=== PATIENT | female | born 1980 ===

== ENCOUNTER 2017-08-30 11:20 | Inpatient (IN) | payer OTHER ==
[2017-08-30] MEDS ORDERED: Sodium Chloride 0.9% 1,000 ML IV STA ×3 (12:31→15:42)
[2017-08-30] MEDS ORDERED: Iohexol 240 (50 ml) PO ONE (12:33)
--- NOTE | 2017-08-30 12:34 | ED PDOC ---
HPI: Abdomen Time Seen by Provider: 08/30/17 11:52 Chief Complaint (Nursing): GI Problem Chief Complaint (Provider): Abd pain History Per: Patient History/Exam Limitations: no limitations Onset/Duration Of Symptoms: Days (Tuesday) Additional Complaint(s): Pt. with abd pain R side lower. 5 days. No nausea. Has diarrhea, nonbloody. No weakness, headaches, dizziness, weakness, back pain. No chest pain. No dysuria. Past Medical History Reviewed: Nursing Documentation, Vital Signs Vital Signs: Last Vital Signs Temp 98.8 F 08/30/17 15:08 Pulse 96 H 08/30/17 15:08 Resp 18 08/30/17 11:24 BP 135/76 08/30/17 11:24 Pulse Ox 95 08/30/17 13:15 - Medical History PMH: No Chronic Diseases - Surgical History Surgical History: No Surg Hx - Family History Family History: States: Unknown Family Hx - Social History Current smoker - smoking cessation education provided: No Alcohol: None Drugs: Denies - Home Medications Home Medications: Ambulatory Orders Medication Instructions Recorded Doxycycline [Adoxa] 100 mg PO BID #20 tab 05/13/14 Ibuprofen [Motrin] 600 mg PO Q8 PRN #20 tab 05/13/14 - Allergies Allergies/Adverse Reactions: Allergies Allergy/AdvReac Type Severity Reaction Status Date / Time No Known Allergies Allergy Verified 05/13/14 09:58 Review of Systems ROS Statement: Except As Marked, All Systems Reviewed And Found Negative Gastrointestinal: Positive for: Abdominal Pain, Diarrhea Physical Exam - Reviewed Nursing Documentation Reviewed: Yes Vital Signs Reviewed: Yes - Physical Exam Appears: Positive for: Uncomfortable Head Exam: Positive for: ATRAUMATIC, NORMAL INSPECTION, NORMOCEPHALIC Skin: Positive for: Normal Color, Warm, DRY Eye Exam: Positive for: EOMI, Normal appearance, PERRL ENT: Positive for: Normal ENT Inspection Neck: Positive for: Normal, Painless ROM Cardiovascular/Chest: Positive for: Regular Rate, Rhythm Respiratory: Positive for: CNT, Normal Breath Sounds Gastrointestinal/Abdominal: Positive for: Bowel Sounds, Soft, Tenderness ( diffuse), Distended (mild) Back: Positive for: Normal Inspection. Negative for: L CVA Tenderness, R CVA Tenderness Extremity: Positive for: Normal ROM. Negative for: Tenderness, Pedal Edema Neurologic/Psych: Positive for: Alert, Oriented - Laboratory Results Result Diagrams: 08/30/17 13:00 08/30/17 13:00 Interpretation Of Abn Labs: 13.2 wbc, 29 bun, lactate 2.2 - ECG ECG: Positive for: Interpreted By Me, Viewed By Me ECG Rhythm: Positive for: Sinus Tachycardia O2 Sat by Pulse Oximetry: 95 Pulse Ox Interpretation: Normal - Progress ED Course And Treament: IMPRESSION: Colonic wall thickening on the right with adjacent inflammatory changes and small free fluid. The appendix is not identified. Extensive inflammatory changes which may be related to phlegmonous change/ developing abscess evident within right lower quadrant. Several foci of gas are noted in this region which are not clearly intraluminal. Appearance suspicious for loculated extra luminal gas, however free air cannot be entirely excluded. Correlate clinically for possibility of acute appendicitis/ruptured appendix. 21.3 x 26.4 cm cystic mass within the right mid pelvis of unclear etiology, possibly ovarian in origin. Hepatomegaly. Hepatic steatosis. Patchy right lower lobe atelectasis/infiltrates. 1553: Stable. Pain controlled. Spoke with Dr. Kay. Will consult. Agrees with current management. Spoke with Dr. Oliveira who will admit ICU. Spoke with dr. Foster who will admit. AAOx3. - Critical Care Total Time (In Min): 30 Documented Critical Care: Time excludes all time spent performint seperately billable procedures Disposition - Clinical Impression Clinical Impression: Ruptured appendicitis, Ovarian mass, Severe sepsis - Patient ED Disposition Is Patient to be Admitted: Yes - Disposition Disposition Time: 15:30 Condition: SERIOUS - Pt Status Changed To: Hospital Disposition Of: Inpatient - Admit Certification Admit to Inpatient:: After my assessment, the patient will require hospitalization for at least two midnights. This is because of the severity of symptoms shown, intensity of services needed, and/or the medical risk in this patient being treated as an outpatient. - POA Present On Arrival: None
[2017-08-30] MEDS ORDERED: Iohexol 240 (50 ml) ONE (13:06)
[2017-08-30 13:07] LABS: VENOUS BLOOD GAS BASE EXCESS 3.2 mmol/L (0.0-2.0); VENOUS BLOOD GAS PCO2 34 mmHg (40-60); VENOUS BLOOD GAS PO2 43 mm/Hg (30-55)
[2017-08-30 13:11] LABS: BASO % 0.1 % (0.0-2.0); EOS # 0.1 K/uL (0.0-0.7); EOS % 0.6 % (0.0-4.0); HEMOGLOBIN 7.5 g/dL (12.0-16.0); LYMPH # 1.1 K/uL (1.0-4.3); LYMPH % 8.5 % (20.0-40.0); MEAN CELL VOLUME 57.2 fl (81.0-99.0); MEAN CORPUSCULAR HEMOGLOBIN 17.8 pg (27.0-31.0); MEAN CORPUSCULAR HGB CONC 31.2 g/dL (33.0-37.0); MEAN PLATELET VOLUME 8.4 fl (7.2-11.7); MONO # 0.8 K/uL (0.0-0.8); MONO % 6.3 % (0.0-10.0); NEUT # 11.2 K/uL (1.8-7.0); NEUT % 84.5 % (50.0-75.0); NRBC % 0.1 % (0.0-0.0); PLATELET COUNT 255 K/uL (130-400); RBC 4.21 Mil/uL (3.80-5.20); RED CELL DISTRIBUTION WIDTH 19.1 % (11.5-14.5); WHITE BLOOD COUNT 13.2 K/uL (4.8-10.8)
[2017-08-30 13:26] LABS: INR 1.2 (0.9-1.2); PARTIAL THROMBOPLASTIN TIME 30.9 Seconds (25.6-37.1); PROTHROMBIN TIME 13.8 Seconds (9.8-13.1)
[2017-08-30 13:27] LABS: ALBUMIN 3.9 g/dL (3.5-5.0); ALT/SGPT 44 U/L (9-52); AST/SGOT 26 U/L (14-36); BLOOD UREA NITROGEN 29 mg/dl (7-17); CALCIUM 8.2 mg/dL (8.4-10.2); GFR AFRICAN-AMERICAN > 60; GFR NON-AFRICAN AMERICAN > 60; LIPASE 34 U/L (23-300); MAGNESIUM 1.7 MG/DL (1.6-2.3)
[2017-08-30 14:13] LABS: ANISOCYTOSIS SLIGHT; LYMPHOCYTE 7 % (20-50); MICROCYTOSIS MARKED; MONOCYTE 5 % (0-10); NEUTROPHIL 88 % (42-75); PLATELET ESTIMATE NORMAL (NORMAL); TOTAL CELLS COUNTED 100
[2017-08-30 14:14] LABS: HYPOCHROMIC MODERATE; OVALOCYTES SLIGHT; SCHISTOCYTES SLIGHT; TARGET CELLS SLIGHT; TEARDROP CELLS SLIGHT
[2017-08-30] MEDS ORDERED: Iohexol 300 100 ML IJ ONE (14:51)
[2017-08-30] MEDS ORDERED: Piperacillin/Tazobact 3.375 GM in Sodium Chloride 0.9% 100 ML IV STA (15:48)
--- NOTE | 2017-08-30 15:49 | CT ---
PROCEDURE: CT Abdomen and Pelvis with oral and IV contrast. HISTORY: abd pain COMPARISON: CT abdomen and pelvis without contrast performed 04/09/14 TECHNIQUE: Contiguous axial images of the abdomen and pelvis. Oral and IV contrast was administered. Coronal and Sagittal reformats generated and reviewed. Contrast dose: 95 cc Omnipaque IV. Radiation dose: Total exam DLP = 1134.30 MGy-cm. This CT exam was performed using one or more of the following dose reduction techniques: Automated exposure control, adjustment of the mA and/or kV according to patient size, and/or use of iterative reconstruction technique. FINDINGS: LOWER THORAX: Patchy right lower lobe atelectasis/infiltrates. No visible pleural effusion or pneumothorax. LIVER: Hypoattenuation of the liver compatible with hepatic steatosis. Hepatomegaly. GALLBLADDER AND BILE DUCTS: Unremarkable. PANCREAS: Unremarkable. SPLEEN: Unremarkable. ADRENALS: Unremarkable. KIDNEYS AND URETERS: The kidneys enhance symmetrically. No hydronephrosis or obstructing renal calculus. BLADDER: Underdistended urinary bladder appears unremarkable. REPRODUCTIVE: Uterus is present. BOWEL: The stomach is nondistended. No evidence of bowel obstruction. Colonic wall thickening on the right with adjacent inflammatory changes and small free fluid. The appendix is not identified. Extensive inflammatory changes which may be related to phlegmonous change/ developing abscess evident within right lower quadrant. Several foci of gas are noted in this region which are not clearly intraluminal. Appearance suspicious for loculated extra luminal gas, however free air cannot be entirely excluded. Correlate clinically for possibility of acute appendicitis/ruptured appendix. LYMPH NODES: No bulky lymphadenopathy identified. VASCULATURE: No aortic aneurysm. BONES: No acute osseous abnormality is detected. OTHER FINDINGS: 21.3 x 26.4 cm cystic mass within the right mid pelvis of unclear etiology, possibly ovarian in origin. Small fat containing umbilical hernia. IMPRESSION: Colonic wall thickening on the right with adjacent inflammatory changes and small free fluid. The appendix is not identified. Extensive inflammatory changes which may be related to phlegmonous change/ developing abscess evident within right lower quadrant. Several foci of gas are noted in this region which are not clearly intraluminal. Appearance suspicious for loculated extra luminal gas, however free air cannot be entirely excluded. Correlate clinically for possibility of acute appendicitis/ruptured appendix. 21.3 x 26.4 cm cystic mass within the right mid pelvis of unclear etiology, possibly ovarian in origin. Hepatomegaly. Hepatic steatosis. Patchy right lower lobe atelectasis/infiltrates. Findings discussed with Dr. Ramon on 08/30/17 at 3:39 p.m.
--- NOTE | 2017-08-30 16:04 | CP.CCUPN ---
CCU Subjective - Physician Review Events Since Last Encounter (Free Text): 08/30/17 17:54 37 Years old Female with No Chronic Diseases who presented to the Emergency department with complaint of sharp, consistent Right sided abdominal pain x 5 days. Also admits N/vomiting, diarrhea, No dysuria, No fevers/chills, Body ache, No chest pain, SOB, cough, sputum productions. CT abdomen and pelvis without contrast performed showed RLL extensive inflammatory changes In the Emergency department, she was tachycardic , Borderline Hypotensive Fever to 101F and with possible RLL atelectasis/infiltrates. labs revealed Leucocytosis pf 13.2, mild azotemia with BUN/Cr 29/1.0, elevated lactate of 2.2 Patient started on IV antibiotics, IV Fluids Afebrile, NSR on the monitor Evaluated by surgery Patient admitted to ICU for further management of Severe sepsis 08/30/17 18:09 08/30/2017: CT Abdomen and Pelvis with oral and IV contrast. IMPRESSION: Colonic wall thickening on the right with adjacent inflammatory changes and small free fluid. The appendix is not identified. Extensive inflammatory changes which may be related to phlegmonous change/ developing abscess evident within right lower quadrant. Several foci of gas are noted in this region which are not clearly intraluminal. Appearance suspicious for loculated extra luminal gas, however free air cannot be entirely excluded. Correlate clinically for possibility of acute appendicitis/ruptured appendix. 21.3 x 26.4 cm cystic mass within the right mid pelvis of unclear etiology, possibly ovarian in origin. Hepatomegaly. Hepatic steatosis. Patchy right lower lobe atelectasis/infiltrates. 08/30/17 18:18 CCU Objective - Vital Signs / Intake & Output Vital Signs (Last 4 hours): Vital Signs Temp Pulse Pulse Ox 08/30/17 15:56 95 08/30/17 15:08 98.8 F 96 H Intake and Output (Last 8hrs): Intake & Output 08/30/17 08/30/17 08/30/17 06:59 14:59 22:59 Weight 180 lb - Physical Exam Head: Positive for: Atraumatic, Normocephalic Pupils: Positive for: PERRL. Negative for: Sluggish, Non-Reactive, Pinpoint Extroacular Muscles: Positive for: EOMI. Negative for: Gaze Palsy, Entrapment Conjunctiva: Positive for: Normal. Negative for: Injected, Icteric Ears: Positive for: Normal Mouth: Positive for: Moist Mucous Membranes Pharnyx: Positive for: Normal Neck: Positive for: Normal Range of Motion, Trachea Midline. Negative for: Meningeal Signs, MIDLINE TENDERNESS, Paraspinal Tenderness, JVD, Lymphadenopathy , Bruit, Other Respiratory/Chest: Positive for: Clear to Auscultation, Good Air Exchange. Negative for: Respiratory Distress, Accessory Muscle Use, Wheezes, Decreased Breath Sounds, Rales, Retracting, Rhonchi Cardiovascular: Positive for: Regular Rate and Rhythm, Normal S1, S2, Peripheal Pulses Present. Negative for: Murmurs, Irregular Rhythm, Tachycardic, Bradycardic Abdomen: Positive for: Tenderness, Distention, Normal Bowel Sounds Upper Extremity: Positive for: Normal Inspection, NORMAL PULSES, Capillary Refill < 2s. Negative for: Cyanosis, Edema Lower Extremity: Positive for: Normal Inspection, NORMAL PULSES, Capillary Refill < 2 s. Negative for: Edema, CALF TENDERNESS Neurological: Positive for: GCS=15, CN II-XII Intact, Speech Normal, Motor Func Grossly Intact, Normal Sensory Function Psychiatric: Positive for: Alert, Oriented x 3, Normal Insight, Normal Concentration - Medications Active Medications: Active Medications Generic Name Dose Route Start Last Admin Trade Name Freq PRN Reason Stop Dose Admin Sodium Chloride 1,000 mls @ 1,000 mls/hr 08/30/17 15:42 08/30/17 15:49 Sodium Chloride 0.9% IV 08/30/17 16:41 1,000 mls/hr .Q1H STA Administration Vancomycin HCl 1 gm/ Sodium 250 mls @ 166.667 mls/hr 08/30/17 15:54 Chloride IVPB 08/30/17 17:23 STAT STA Protocol Piperacillin Sod/Tazobactam 100 mls @ 100 mls/hr 08/30/17 15:48 Sod 3.375 gm/ Sodium Chloride IV 08/30/17 16:47 STAT STA Protocol - Patient Studies Lab Studies: Lab Studies 08/30/17 08/30/17 08/30/17 Range/Units 13:00 13:00 13:00 WBC 13.2 H (4.8-10.8) K/uL RBC 4.21 (3.80-5.20) Mil/uL Hgb 7.5 L (12.0-16.0) g/dL Hct 24.1 L (34.0-47.0) % MCV 57.2 L (81.0-99.0) fl MCH 17.8 L (27.0-31.0) pg MCHC 31.2 L (33.0-37.0) g/dL RDW 19.1 H (11.5-14.5) % Plt Count 255 (130-400) K/uL MPV 8.4 (7.2-11.7) fl Neut % (Auto) 84.5 H (50.0-75.0) % Lymph % (Auto) 8.5 L (20.0-40.0) % [place] % (Auto) 6.3 (0.0-10.0) % Eos % (Auto) 0.6 (0.0-4.0) % Baso % (Auto) 0.1 (0.0-2.0) % Neut # 11.2 H (1.8-7.0) K/uL Lymph # 1.1 (1.0-4.3) K/uL Cors[place] # 0.8 (0.0-0.8) K/uL Eos # 0.1 (0.0-0.7) K/uL Baso # 0.0 (0.0-0.2) K/uL Neutrophils % (Manual) 88 H (42-75) % Lymphocytes % (Manual) 7 L (20-50) % Monocytes % (Manual) 5 (0-10) % Platelet Estimate Normal (NORMAL) Hypochromasia (manual) Moderate Anisocytosis (manual) Slight Microcytosis (manual) Marked Target Cells Slight Tear Drop Cells Slight Ovalocytes Slight Schistocytes Slight PT 13.8 H (9.8-13.1) Seconds INR 1.2 (0.9-1.2) APTT 30.9 (25.6-37.1) Seconds pO2 (30-55) mm/Hg VBG pH (7.32-7.43) VBG pCO2 (40-60) mmHg VBG HCO3 mmol/L VBG Total CO2 (22-28) mmol/L VBG O2 Sat (Calc) (40-65) % VBG Base Excess (0.0-2.0) mmol/L VBG Potassium (3.6-5.2) mmol/L Sodium 128 L (132-148) mmol/L Chloride 91 L (98-107) mmol/L Glucose (65-105) mg/dL Lactate (0.7-2.1) mmol/L FiO2 % Potassium 3.3 L (3.6-5.0) MMOL/L Carbon Dioxide 26 (22-30) mmol/L Anion Gap 14 (10-20) BUN 29 H (7-17) mg/dl Creatinine 1.0 (0.7-1.2) mg/dl Est GFR ( Amer) > 60 Est GFR (Non-Af Amer) > 60 Random Glucose 152 H (65-105) mg/dL Calcium 8.2 L (8.4-10.2) mg/dL Phosphorus 1.7 L (2.5-4.5) mg/dl Magnesium 1.7 (1.6-2.3) MG/DL Total Bilirubin 0.8 (0.2-1.3) mg/dl AST 26 (14-36) U/L ALT 44 (9-52) U/L Alkaline Phosphatase 86 (38-126) U/L Total Protein 7.6 (6.3-8.2) G/DL Albumin 3.9 (3.5-5.0) g/dL Globulin 3.7 (2.2-3.9) gm/dL Albumin/Globulin Ratio 1.0 (1.0-2.1) Lipase 34 (23-300) U/L Venous Blood Potassium (3.6-5.2) mmol/L 08/30/17 Range/Units 12:41 WBC (4.8-10.8) K/uL RBC (3.80-5.20) Mil/uL Hgb (12.0-16.0) g/dL Hct (34.0-47.0) % MCV (81.0-99.0) fl MCH (27.0-31.0) pg MCHC (33.0-37.0) g/dL RDW (11.5-14.5) % Plt Count (130-400) K/uL MPV (7.2-11.7) fl Neut % (Auto) (50.0-75.0) % Lymph % (Auto) (20.0-40.0) % Cors[place] % (Auto) (0.0-10.0) % Eos % (Auto) (0.0-4.0) % Baso % (Auto) (0.0-2.0) % Neut # (1.8-7.0) K/uL Lymph # (1.0-4.3) K/uL Corson # (0.0-0.8) K/uL Eos # (0.0-0.7) K/uL Baso # (0.0-0.2) K/uL Neutrophils % (Manual) (42-75) % Lymphocytes % (Manual) (20-50) % Monocytes % (Manual) (0-10) % Platelet Estimate (NORMAL) Hypochromasia (manual) Anisocytosis (manual) Microcytosis (manual) Target Cells Tear Drop Cells Ovalocytes Schistocytes PT (9.8-13.1) Seconds INR (0.9-1.2) APTT (25.6-37.1) Seconds pO2 43 (30-55) mm/Hg VBG pH 7.50 H (7.32-7.43) VBG pCO2 34 L (40-60) mmHg VBG HCO3 27.2 mmol/L VBG Total CO2 27.5 (22-28) mmol/L VBG O2 Sat (Calc) 89.8 H (40-65) % VBG Base Excess 3.2 H (0.0-2.0) mmol/L VBG Potassium 3.1 L (3.6-5.2) mmol/L Sodium 127.0 L (132-148) mmol/L Chloride 93.0 L (98-107) mmol/L Glucose 162 H (65-105) mg/dL Lactate 2.2 H (0.7-2.1) mmol/L FiO2 21.0 % Potassium (3.6-5.0) MMOL/L Carbon Dioxide (22-30) mmol/L Anion Gap (10-20) BUN (7-17) mg/dl Creatinine (0.7-1.2) mg/dl Est GFR ( Amer) Est GFR (Non-Af Amer) Random Glucose (65-105) mg/dL Calcium (8.4-10.2) mg/dL Phosphorus (2.5-4.5) mg/dl Magnesium (1.6-2.3) MG/DL Total Bilirubin (0.2-1.3) mg/dl AST (14-36) U/L ALT (9-52) U/L Alkaline Phosphatase (38-126) U/L Total Protein (6.3-8.2) G/DL Albumin (3.5-5.0) g/dL Globulin (2.2-3.9) gm/dL Albumin/Globulin Ratio (1.0-2.1) Lipase (23-300) U/L Venous Blood Potassium 3.1 L (3.6-5.2) mmol/L Laboratory Results - last 24 hr 08/30/17 08/30/17 08/30/17 12:41 13:00 13:00 WBC 13.2 H RBC 4.21 Hgb 7.5 L Hct 24.1 L MCV 57.2 L MCH 17.8 L MCHC 31.2 L RDW 19.1 H Plt Count 255 MPV 8.4 Neut % (Auto) 84.5 H Lymph % (Auto) 8.5 L Cors[place] % (Auto) 6.3 Eos % (Auto) 0.6 Baso % (Auto) 0.1 Neut # 11.2 H Lymph # 1.1 Corson # 0.8 Eos # 0.1 Baso # 0.0 Neutrophils % (Manual) 88 H Lymphocytes % (Manual) 7 L Monocytes % (Manual) 5 Platelet Estimate Normal Hypochromasia (manual) Moderate Anisocytosis (manual) Slight Microcytosis (manual) Marked Target Cells Slight Tear Drop Cells Slight Ovalocytes Slight Schistocytes Slight PT INR APTT pO2 43 VBG pH 7.50 H VBG pCO2 34 L VBG HCO3 27.2 VBG Total CO2 27.5 VBG O2 Sat (Calc) 89.8 H VBG Base Excess 3.2 H VBG Potassium 3.1 L Sodium 127.0 L 128 L Chloride 93.0 L 91 L Glucose 162 H Lactate 2.2 H FiO2 21.0 Potassium 3.3 L Carbon Dioxide 26 Anion Gap 14 BUN 29 H Creatinine 1.0 Est GFR ( Amer) > 60 Est GFR (Non-Af Amer) > 60 Random Glucose 152 H Calcium 8.2 L Phosphorus 1.7 L Magnesium 1.7 Total Bilirubin 0.8 AST 26 ALT 44 Alkaline Phosphatase 86 Total Protein 7.6 Albumin 3.9 Globulin 3.7 Albumin/Globulin Ratio 1.0 Lipase 34 Venous Blood Potassium 3.1 L 08/30/17 13:00 WBC RBC Hgb Hct MCV MCH MCHC RDW Plt Count MPV Neut % (Auto) Lymph % (Auto) [place] % (Auto) Eos % (Auto) Baso % (Auto) Neut # Lymph # [place] # Eos # Baso # Neutrophils % (Manual) Lymphocytes % (Manual) Monocytes % (Manual) Platelet Estimate Hypochromasia (manual) Anisocytosis (manual) Microcytosis (manual) Target Cells Tear Drop Cells Ovalocytes Schistocytes PT 13.8 H INR 1.2 APTT 30.9 pO2 VBG pH VBG pCO2 VBG HCO3 VBG Total CO2 VBG O2 Sat (Calc) VBG Base Excess VBG Potassium Sodium Chloride Glucose Lactate FiO2 Potassium Carbon Dioxide Anion Gap BUN Creatinine Est GFR ( Amer) Est GFR (Non-Af Amer) Random Glucose Calcium Phosphorus Magnesium Total Bilirubin AST ALT Alkaline Phosphatase Total Protein Albumin Globulin Albumin/Globulin Ratio Lipase Venous Blood Potassium EKG/Cardiology Studies: Cardiology / EKG Studies 08/30/17 12:31 ELECTROCARDIOGRAM Stat Comment: Mode Of Transportation: Reason For Exam: Sepsis Patient Review of Systems - Cardiovascular Cardiovascular: absent: As Per HPI, Acrocyanosis, Chest Pain, Chest Pain at Rest , Chest Pain with Activity, Claudication, Diaphoresis, Dyspnea, Dyspnea on Exertion, Edema, Irregular Heart Rhythm, Pain Radiating to Arm/Neck/Jaw, Leg Edema, Leg Ulcers, Lightheadedness, Orthopnea, Palpitations, Paroxysmal Nocturnal Dyspnea, Pedal Edema, Radiating Pain, Rapid Heart Rate, Slow Heart Rate, Syncope, Other, UNREMARKABLE - Respiratory Respiratory: absent: As Per HPI, Cough, Dyspnea, Hemoptysis, Dyspnea on Exertion , Wheezing, Snoring, Stridor, Pain on Inspiration, Chest Congestion, Excessive Mucous Production, Change in Mucous Color, Pain with Coughing, Other, UNREMARKABLE - Gastrointestinal Gastrointestinal: Abdominal Pain, Belching, Bloating Critical Care Progress Note - Extremities/Vascular Does the Patient have a Central Venous Catheter?: No Does the Patient need a Central Venous Catheter?: No Does the Patient have a Henderson Catheter?: No Does the Patient need a Henderson Catheter?: No Assessment/Plan (1) Severe sepsis Current Visit: Yes Status: Acute (2) Ruptured appendicitis Current Visit: Yes Status: Acute (3) Azotemia Current Visit: Yes Status: Acute (4) Hyponatremia Current Visit: Yes Status: Acute (5) Hypokalemia Current Visit: Yes Status: Acute (6) Ovarian mass Current Visit: Yes Status: Acute - Assessment and Plan (Free Text) Assessment: Admit to ICU for Clinical and hemodynamic monitoring Continue IV Vancomycin and Zosyn Maintain MAP 65-75 Surgical and Compliance Intern consult Follow up cultures IV Fluids, Volume resuscitations Suplememt Lytes, repeat labs Monitor fever curve, Tylenol PRN fevers Trend WBC count, lactate
--- NOTE | 2017-08-30 16:53 | CP.PCM.HP ---
History of Present Illness - History of Present Illness History of Present Illness: 37 y/o female with no significant PMH presented to ER complaining of 5 day history of right flank pain radiating to her RLQ associated with fever ,watery diarrhea, nausea , vomiting.Patient states that pain is dull like, improved with tylenol. denies any urinary symptoms, dysuria, frequency. She gives history of 17 years ago and complains of abdominal distention for the past 2 years. 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 At present when asked about ovarian cyst denies such history . She denies any chest pain , SOB, palpitations, PND, orthopnea, cough. LPM 2013 Allergies: NKDA PMH ; ovarian Cyst ? 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 denies smoking, ETOH or drug abuse , single , lives with friends ROS ; 14 point review of system negative except above PMD ; none Surrogate decision maker ; sister Susan Garibay Present on Admission - Present on Admission Any Indicators Present on Admission: No Review of Systems - Review of Systems All systems: reviewed and no additional remarkable complaints except Past Patient History - Infectious Disease Hx of Infectious Diseases: None - Tetanus Immunizations Tetanus Immunization: Unknown - Past Medical History & Family History Past Medical History?: No Past Family History: Reviewed and not pertinent - Past Social History Smoking Status: Never Smoked Chewing Tobacco Use: No Cigar Use: No Alcohol: None Drugs: Denies Home Situation {Lives}: Friends Domestic Violence: Negative - CARDIAC Hx Cardiac Disorders: No - NEUROLOGICAL Hx Neurological Disorder: No - HEENT Hx HEENT Problems: No - GENITOURINARY/GYNECOLOGICAL Other/Comment: hx of miscarriage - LMP January 2014 - PSYCHIATRIC Hx Substance Use: No - SURGICAL HISTORY Hx Surgeries: No Meds Allergies/Adverse Reactions: Allergies Allergy/AdvReac Type Severity Reaction Status Date / Time No Known Allergies Allergy Verified 05/13/14 09:58 Physical Exam - Constitutional Appears: Non-toxic, No Acute Distress - Head Exam Head Exam: ATRAUMATIC, NORMAL INSPECTION, NORMOCEPHALIC - Eye Exam Eye Exam: EOMI, Normal appearance, PERRL Pupil Exam: NORMAL ACCOMODATION - ENT Exam ENT Exam: Mucous Membranes Moist, Normal Exam - Neck Exam Neck exam: Positive for: Full Rom, Normal Inspection - Respiratory Exam Respiratory Exam: Clear to Auscultation Bilateral, NORMAL BREATHING PATTERN. absent: Rales, Rhonchi, Wheezes, Respiratory Distress - Cardiovascular Exam Cardiovascular Exam: Tachycardia, RRR, +S1, +S2. absent: JVD - GI/Abdominal Exam GI & Abdominal Exam: Distended, Normal Bowel Sounds, Soft. absent: Guarding, Rebound, Rigid, Tenderness - Rectal Exam Rectal Exam: Deferred - Extremities Exam Extremities exam: Positive for: normal capillary refill, normal inspection, pedal pulses present. Negative for: calf tenderness, pedal edema - Back Exam Back exam: NORMAL INSPECTION - Neurological Exam Neurological exam: Alert, CN II-XII Intact, Oriented x3, Reflexes Normal - Psychiatric Exam Psychiatric exam: Normal Affect, Normal Mood - Skin Skin Exam: Dry, Intact, Normal Color, Warm Results - Vital Signs Recent Vital Signs: Last Vital Signs Temp 98.8 F 08/30/17 15:08 Pulse 96 H 08/30/17 15:08 Resp 18 08/30/17 11:24 BP 135/76 08/30/17 11:24 Pulse Ox 95 08/30/17 15:56 - Labs Result Diagrams: 08/30/17 13:00 08/30/17 13:00 Labs: Laboratory Results - last 24 hr 08/30/17 08/30/17 08/30/17 12:41 13:00 13:00 WBC 13.2 H RBC 4.21 Hgb 7.5 L Hct 24.1 L MCV 57.2 L MCH 17.8 L MCHC 31.2 L RDW 19.1 H Plt Count 255 MPV 8.4 Neut % (Auto) 84.5 H Lymph % (Auto) 8.5 L [place] % (Auto) 6.3 Eos % (Auto) 0.6 Baso % (Auto) 0.1 Neut # 11.2 H Lymph # 1.1 [place] # 0.8 Eos # 0.1 Baso # 0.0 Neutrophils % (Manual) 88 H Lymphocytes % (Manual) 7 L Monocytes % (Manual) 5 Platelet Estimate Normal Hypochromasia (manual) Moderate Anisocytosis (manual) Slight Microcytosis (manual) Marked Target Cells Slight Tear Drop Cells Slight Ovalocytes Slight Schistocytes Slight PT INR APTT pO2 43 VBG pH 7.50 H VBG pCO2 34 L VBG HCO3 27.2 VBG Total CO2 27.5 VBG O2 Sat (Calc) 89.8 H VBG Base Excess 3.2 H VBG Potassium 3.1 L Sodium 127.0 L 128 L Chloride 93.0 L 91 L Glucose 162 H Lactate 2.2 H FiO2 21.0 Potassium 3.3 L Carbon Dioxide 26 Anion Gap 14 BUN 29 H Creatinine 1.0 Est GFR ( Amer) > 60 Est GFR (Non-Af Amer) > 60 Random Glucose 152 H Calcium 8.2 L Phosphorus 1.7 L Magnesium 1.7 Total Bilirubin 0.8 AST 26 ALT 44 Alkaline Phosphatase 86 Total Protein 7.6 Albumin 3.9 Globulin 3.7 Albumin/Globulin Ratio 1.0 Lipase 34 Venous Blood Potassium 3.1 L 08/30/17 13:00 WBC RBC Hgb Hct MCV MCH MCHC RDW Plt Count MPV Neut % (Auto) Lymph % (Auto) [place] % (Auto) Eos % (Auto) Baso % (Auto) Neut # Lymph # [place] # Eos # Baso # Neutrophils % (Manual) Lymphocytes % (Manual) Monocytes % (Manual) Platelet Estimate Hypochromasia (manual) Anisocytosis (manual) Microcytosis (manual) Target Cells Tear Drop Cells Ovalocytes Schistocytes PT 13.8 H INR 1.2 APTT 30.9 pO2 VBG pH VBG pCO2 VBG HCO3 VBG Total CO2 VBG O2 Sat (Calc) VBG Base Excess VBG Potassium Sodium Chloride Glucose Lactate FiO2 Potassium Carbon Dioxide Anion Gap BUN Creatinine Est GFR ( Amer) Est GFR (Non-Af Amer) Random Glucose Calcium Phosphorus Magnesium Total Bilirubin AST ALT Alkaline Phosphatase Total Protein Albumin Globulin Albumin/Globulin Ratio Lipase Venous Blood Potassium - Imaging and Cardiology CT scan - abdomen Additional comment: Colonic wall thickening on the right with adjacent inflammatory changes and small free fluid. The appendix is not identified. Extensive inflammatory changes which may be related to phlegmonous change/ developing abscess evident within right lower quadrant. Several foci of gas are noted in this region which are not clearly intraluminal. Appearance suspicious for loculated extra luminal gas, however free air cannot be entirely excluded. Correlate clinically for possibility of acute appendicitis/ruptured appendix. 21.3 x 26.4 cm cystic mass within the right mid pelvis of unclear etiology, possibly ovarian in origin. Hepatomegaly. Hepatic steatosis. Patchy right lower lobe atelectasis/infiltrates. Assessment & Plan - Assessment and Plan (Free Text) Assessment: 37 y/o female with no significant PMH presented to ER complaining of 5 day history of right flank pain radiating to her RLQ associated with fever ,watery diarrhea, nausea , vomiting.Patient states that pain is dull like, improved with tylenol. denies any urinary symptoms, dysuria, frequency. She gives history of 17 years ago and complains of abdominal distention for the past 2 years. 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 At present when asked about ovarian cyst denies such history . She denies any chest pain , SOB, palpitations, PND, orthopnea, cough. LPM 2013 In ER found to be febrile Tmax 101.3, WBC 13 lactate 2.2 Na 128 [address] abdomen and pelvis showed :Colonic wall thickening on the right with adjacent inflammatory changes and small free fluid. The appendix is not identified. Extensive inflammatory changes which may be related to phlegmonous change/ developing abscess evident within right lower quadrant. Several foci of gas are noted in this region which are not clearly intraluminal. Appearance suspicious for loculated extra luminal gas, however free air cannot be entirely excluded. Correlate clinically for possibility of acute appendicitis/ruptured appendix. 21.3 x 26.4 cm cystic mass within the right mid pelvis of unclear etiology, possibly ovarian in origin. Hepatomegaly. Hepatic steatosis. Patchy right lower lobe atelectasis/infiltrates. 1.Sepsis most likely secondary to intra abdominal pathology -- colitis vs abscess vs complex ovarian cyst r/o appendicitis Will admit patient to ICU for close monitoring Patient tachycardic HR 139 , Tmax 101.3 WBC [address] abdomen as above showing colonic wall thickening with extensive inflammatory changes ,phlegmon vs abscess , right mid pelvis cystic mass Start IVF, Vanco, Zosyn IV will call general surgery and Brake Operator eval send blood cx, urine cx Repet CBC, BMP 2. Right Mid pelvis cystic mass most likely ovarian etiology patient has been diagnosed with ovarian mass since 2013 Will call shaper machine hand eval 3. Hyponatremia most likely volume depleted due to diarrhea strat IVF and repeat in Am 4. Electrolyte abnormality - hypokalemia and hypophosphatemia Replace with Kphos 5. Azotemia BUN 29 Most likely prerenal replete with IVF 6. Abdominal distention most likely secondary to large ovarian mass Ct abdomen showed suspicious free air and fluid and hepatomegaly with steatosis Continue monitoring 7. Anemia most likely anemia of chronic disease] Hgb 7.5 send anemia work up 8. DVt prophylaxis SCD hold off any anticoagulation for now
[2017-08-30 16:58] LABS: GRANULAR CAST 24 /lpf (0-1); SQUAMOUS EPITHIAL 1 /hpf (0-5); URINE BACTERIA RARE (<OCC); URINE BILIRUBIN NEGATIVE (NEGATIVE); URINE BLOOD LARGE (NEGATIVE); URINE CLARITY CLOUDY (Clear); URINE COLOR AMBER (YELLOW); URINE GLUCOSE (UA) NEG (Normal); URINE HYALINE CAST >20 /hpf (0-2); URINE LEUKOCYTE ESTERASE NEG Leu/uL (Negative); URINE NITRATE NEGATIVE (NEGATIVE); URINE PROTEIN 100 mg/dL (NEGATIVE); URINE UROBILINOGEN 0.2-1.0 mg/dL (0.2-1.0)
--- NOTE | 2017-08-30 17:17 | RAD ---
PROCEDURE: Radiographs of the chest and abdomen (obstructive series) HISTORY: pain COMPARISON: August 30, 2017. abdomen and pelvis TECHNIQUE: AP radiograph of the chest, with upright and supine radiographs of the abdomen. FINDINGS: CHEST: Lungs: Atelectatic changes right lower lobe. Cardiovascular: Normal size heart. No pulmonary vascular congestion. Pleura: No pleural fluid. No pneumothorax. Other findings: None. ABDOMEN AND PELVIS: Bowel: Unremarkable bowel gas pattern. No evidence of mechanical obstruction. Free air: None. Bones: Unremarkable. Other findings: Contrast in unremarkable collecting systems and: As well as the urinary bladder. IMPRESSION: No evidence of mechanical bowel obstruction, free air. Right lower lobe atelectasis.
[2017-08-30] MEDS ORDERED: Oxycodone/Acetaminophen 5/325 mg Tab PO PRN (17:52)
[2017-08-30] MEDS ORDERED: Potassium Phosphate 30 MMOLE in Sodium Chloride 0.9% 250 ML IV ONE (18:00)
--- NOTE | 2017-08-30 18:32 | CP.PCM.CON ---
History of Present Illness - History of Present Illness History of Present Illness: General surgery consult note for Dr. Kun Storm, PGY-1 Pt S & E at bedside. 37F w/PMH sig for pelvic mass consulted for abdominal pain x past 5 days. Pain is both RUQ and RLQ, dull, non radiating, constant. Admits to fevers (treated with Tylenol), emesis x 1 (nb, bilious), nausea, poor appetite, last BM 08/28 ( diarrhea). Denies dysuria, urinary frequency, chest pain, dizziness, SOB, other complaints. EMR review positive for Large cystic pelvic mass, dx in 2013, possibly of R ovary without known follow up. CT abdomen on this visit positive for "Colonic wall thickening on R w/adjacent inflammatory changes and small free fluid. Appendix is not identified. Extensive inflammatory changes, maybe phlegmonous change/ developing abscess evident w/in RLQ. Several foci of gas in region, not clearly intraluminal. Suspicious for loculated extra luminal gas, however free air cannot be entirely excluded. Correlate clinically for possibility of acute appendicitis/ruptured appendix. 21.3 x 26.4 cm cystic mass within the right mid pelvis of unclear etiology, possibly ovarian in origin. Hepatomegaly. Hepatic steatosis. Patchy right lower lobe atelectasis/infiltrates. " Leukocytosis noted at 13.2 with left shift, lactic acid 1.1 from 2.2 after fluid resuscitation. Obstructive series w/"No evidence of mechanical bowel obstruction, free air. Right lower lobe atelectasis." PMH: Pelvic mass (dx 2013) PSH: (1999) All: NDKA SH: Denies ETOH, tobacco, or illicit drug use LMP: 08/28 Review of Systems - Review of Systems All systems: reviewed and no additional remarkable complaints except - Constitutional Constitutional: Chills, Fever - EENT Ears: absent: Dizziness - Cardiovascular Cardiovascular: absent: Chest Pain - Gastrointestinal Gastrointestinal: Abdominal Pain, Diarrhea, Nausea, Vomiting. absent: Constipation, Hematemesis - Genitourinary Genitourinary: absent: Change in Urinary Stream, Dysuria - Reproductive: Female Reproductive:Female: Currently Menstual - Integumentary Integumentary: absent: Rash - Neurological Neurological: absent: Dizziness - Psychiatric Psychiatric: Change in Appetite Past Patient History - Infectious Disease Hx of Infectious Diseases: None - Tetanus Immunizations Tetanus Immunization: Unknown - Past Medical History & Family History Past Medical History?: No Past Family History: Reviewed and not pertinent - Past Social History Smoking Status: Never Smoked Chewing Tobacco Use: No Cigar Use: No Alcohol: None Drugs: Denies Home Situation {Lives}: Friends Domestic Violence: Negative - CARDIAC Hx Cardiac Disorders: No - NEUROLOGICAL Hx Neurological Disorder: No - HEENT Hx HEENT Problems: No - GENITOURINARY/GYNECOLOGICAL Other/Comment: hx of miscarriage - LMP January 2014 - PSYCHIATRIC Hx Substance Use: No - SURGICAL HISTORY Hx Surgeries: No Meds Allergies/Adverse Reactions: Allergies Allergy/AdvReac Type Severity Reaction Status Date / Time No Known Allergies Allergy Verified 05/13/14 09:58 - Medications Medications: Current Medications Acetaminophen (Tylenol 325mg Tab) 650 mg PO Q6H PRN PRN Reason: Pain, Mild (1-3) Acetaminophen (Tylenol 325mg Tab) 650 mg PO Q6H PRN PRN Reason: Fever >100.4 F Sodium Chloride (Sodium Chloride 0.9%) 1,000 mls @ 100 mls/hr IV .Q10H [facility] Stop: 08/31/17 17:59 Potassium Phosphate 30 mmole/ (Sodium Chloride) 260 mls @ 65 mls/hr IV ONCE ONE Stop: 08/30/17 21:59 Vancomycin HCl 1 gm/ Sodium (Chloride) 250 mls @ 166.667 mls/hr IVPB Q12 ALETHA PRN Reason: Protocol Piperacillin Sod/Tazobactam (Sod 3.375 gm/ Sodium Chloride) 100 mls @ 100 mls/ hr IVPB Q6 ALETHA PRN Reason: Protocol Ketorolac Tromethamine (Toradol) 30 mg IVP Q6H PRN PRN Reason: Pain, severe (8-10) Ondansetron HCl (Zofran Inj) 4 mg IVP Q6H PRN PRN Reason: Nausea/Vomiting Oxycodone/Acetaminophen (Percocet 5/325 Mg Tab) 1 tab PO Q4H PRN PRN Reason: Pain, moderate (4-7) Stop: 09/02/17 17:53 Pantoprazole Sodium (Protonix Ec Tab) 40 mg PO DAILY [facility] Physical Exam - Constitutional Appears: No Acute Distress - Head Exam Head Exam: ATRAUMATIC, NORMAL INSPECTION, NORMOCEPHALIC - Eye Exam Eye Exam: EOMI, Normal appearance - ENT Exam ENT Exam: Mucous Membranes Moist, Normal Exam - Neck Exam Neck exam: Positive for: Full Rom - Respiratory Exam Respiratory Exam: Clear to Auscultation Bilateral, NORMAL BREATHING PATTERN. absent: Wheezes, Respiratory Distress - Cardiovascular Exam Cardiovascular Exam: Tachycardia, +S1, +S2 - GI/Abdominal Exam GI & Abdominal Exam: Distended, Firm, Hypoactive Bowel Sounds, Tenderness (RLQ, RUQ). absent: Guarding, Hernia, Rebound - Extremities Exam Extremities exam: Negative for: pedal edema - Neurological Exam Neurological exam: Alert, CN II-XII Intact, Oriented x3 - Psychiatric Exam Psychiatric exam: Normal Affect, Normal Mood - Skin Skin Exam: Dry, Intact, Normal Color, Warm Results - Vital Signs Recent Vital Signs: Last Vital Signs Temp 98.8 F 08/30/17 17:24 Pulse 98 H 08/30/17 17:24 Resp 18 08/30/17 11:24 BP 111/63 08/30/17 17:24 Pulse Ox 95 08/30/17 15:56 - Labs Result Diagrams: 08/30/17 13:00 08/30/17 13:00 Labs: Laboratory Results - last 24 hr 08/30/17 08/30/17 08/30/17 12:41 13:00 13:00 WBC 13.2 H RBC 4.21 Hgb 7.5 L Hct 24.1 L MCV 57.2 L MCH 17.8 L MCHC 31.2 L RDW 19.1 H Plt Count 255 MPV 8.4 Neut % (Auto) 84.5 H Lymph % (Auto) 8.5 L [place] % (Auto) 6.3 Eos % (Auto) 0.6 Baso % (Auto) 0.1 Neut # 11.2 H Lymph # 1.1 [place] # 0.8 Eos # 0.1 Baso # 0.0 Neutrophils % (Manual) 88 H Lymphocytes % (Manual) 7 L Monocytes % (Manual) 5 Platelet Estimate Normal Hypochromasia (manual) Moderate Anisocytosis (manual) Slight Microcytosis (manual) Marked Target Cells Slight Tear Drop Cells Slight Ovalocytes Slight Schistocytes Slight PT INR APTT pO2 43 VBG pH 7.50 H VBG pCO2 34 L VBG HCO3 27.2 VBG Total CO2 27.5 VBG O2 Sat (Calc) 89.8 H VBG Base Excess 3.2 H VBG Potassium 3.1 L Sodium 127.0 L 128 L Chloride 93.0 L 91 L Glucose 162 H Lactate 2.2 H FiO2 21.0 Potassium 3.3 L Carbon Dioxide 26 Anion Gap 14 BUN 29 H Creatinine 1.0 Est GFR ( Amer) > 60 Est GFR (Non-Af Amer) > 60 Random Glucose 152 H Calcium 8.2 L Phosphorus 1.7 L Magnesium 1.7 Total Bilirubin 0.8 AST 26 ALT 44 Alkaline Phosphatase 86 Total Protein 7.6 Albumin 3.9 Globulin 3.7 Albumin/Globulin Ratio 1.0 Lipase 34 Venous Blood Potassium 3.1 L Urine Color Urine Clarity Urine pH Ur Specific [place] Urine Protein Urine Glucose (UA) Urine Ketones Urine Blood Urine Nitrate Urine Bilirubin Urine Urobilinogen Ur Leukocyte Esterase Urine RBC (Auto) Urine Microscopic WBC Ur Squamous Epith Cells Urine Bacteria Hyaline Casts Granular Casts (Auto) 08/30/17 08/30/17 13:00 15:20 WBC RBC Hgb Hct MCV MCH MCHC RDW Plt Count MPV Neut % (Auto) Lymph % (Auto) [place] % (Auto) Eos % (Auto) Baso % (Auto) Neut # Lymph # [place] # Eos # Baso # Neutrophils % (Manual) Lymphocytes % (Manual) Monocytes % (Manual) Platelet Estimate Hypochromasia (manual) Anisocytosis (manual) Microcytosis (manual) Target Cells Tear Drop Cells Ovalocytes Schistocytes PT 13.8 H INR 1.2 APTT 30.9 pO2 VBG pH VBG pCO2 VBG HCO3 VBG Total CO2 VBG O2 Sat (Calc) VBG Base Excess VBG Potassium Sodium Chloride Glucose Lactate FiO2 Potassium Carbon Dioxide Anion Gap BUN Creatinine Est GFR ( Amer) Est GFR (Non-Af Amer) Random Glucose Calcium Phosphorus Magnesium Total Bilirubin AST ALT Alkaline Phosphatase Total Protein Albumin Globulin Albumin/Globulin Ratio Lipase Venous Blood Potassium Urine Color [place] Urine Clarity Cloudy Urine pH 5.0 Ur Specific [place] 1.031 H Urine Protein 100 Urine Glucose (UA) Neg Urine Ketones Negative Urine Blood Large Urine Nitrate Negative Urine Bilirubin Negative Urine Urobilinogen 0.2-1.0 Ur Leukocyte Esterase Neg Urine RBC (Auto) 41 H Urine Microscopic WBC 20 H Ur Squamous Epith Cells 1 Urine Bacteria Rare Hyaline Casts >20 H Granular Casts (Auto) 24 Assessment & Plan - Assessment and Plan (Free Text) Assessment: 37F w/Right sided abdominal pain, possibly related to large known pelvic mass. Moseley score 6- possible appendicitis, but unvisualized on CT abdomen. Plan: Pain control IVF Abx Recommend RLQ abdominal ultrasound for better visualization of appendix Recommend ship ceiler consult Further mgmt as per primary team Further recs as per attending SHIRIN attending Dotty, PGY-1 - Date & Time Date: 08/30/17 Time: 16:35
[2017-08-30 18:35] LABS: VENOUS BLOOD GAS BASE EXCESS 0.3 mmol/L (0.0-2.0); VENOUS BLOOD GAS PCO2 48 mmHg (40-60); VENOUS BLOOD GAS PO2 18 mm/Hg (30-55); VENOUS BLOOD PH 7.35 (7.32-7.43)
[2017-08-30] MEDS: Sodium Chloride 0.9% 1,000 ML IV SCH (18:39)
--- NOTE | 2017-08-30 20:49 | CP.PCM.CON ---
<RamosCliffo - Last Filed: 08/30/17 21:07> History of Present Illness - History of Present Illness History of Present Illness: 37 y/o F c/o R-sided abdominal pain, fever, nausea, non-bloody vomiting and watery diarrhea that began 5 days ago. Pt tried OTC PO Tylenol with no much improvement. Pt decided to come to ER due to severe right sided pain that is described as dull and 9/10 upon entering the ER. Pt denies headache, dizziness, acid reflux, rash, urinary complaints, vaginal bleeding or vaginal discharge, weight changes, recent travel, eating outside or recent previous similar episodes. -X ray at ER: No evidence of mechanical bowel obstruction. -CT scan showed a colonic wall thickening on the right with adjacent inflammatory changes and small free fluid. Appendix no identified. Extensive inflammatory process. 21.3x26.4 cm cystic mass within right mid pelvis of unclear etiology. Pt reports seeing Dr Solano in 2013 for un-recalled reason. TVUS on 08/01/14 showed a cystic lesion with internal echoe 2.6x9.8x21 cm, localized superior to the uterus. Ovaries are seen separate from this process. - Dr. Solano referred pt to Dr Boone, [facility] LOC[facility] oncologist. Pt stopped following up due to complete alleviation of her symptoms and time unavailability due to her busy job. 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 Menses are regular, every 28 days with 7 days of bleeding, uses 3-4 pads a day. - Menarche at 14 y/o. - : > 1st : delivered by a FT baby boy, 17 years ago. > 2nd : spontaneous . > 3rd : induced . Pt took next day pill. - NO Hx of STDs. Pt is NOT currently sexual active. Last coitus 1 year ago. - Never took OCPs. Pt reports intermittent use of condoms. NKDA. Medications; None. PMHx: Facial palsy, right sided about 15 years ago. Chronic sinusistis/ rhinitis. PSHx: 1x 17 years ago. 1x Abdominoplasty. FHx: Father with DM 2. Mother and siblings healthy. SHx: Pt denies tobacco, alcohol or recreational drugs. 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 Lives in house with a female friend and son, pt feels safe at home. Review of Systems - Constitutional Constitutional: absent: Anorexia, Frequent Falls, Night Sweats - EENT Eyes: absent: Blind Spots, Blurred Vision, Change in Vision Ears: absent: Decreased Hearing, Ear Discharge, Abnormal Hearing Nose/Mouth/Throat: absent: Bleeding Gums, Change in Voice, Halitosis, Hoarsness - Cardiovascular Cardiovascular: absent: Chest Pain, Dyspnea, Dyspnea on Exertion - Respiratory Respiratory: absent: Wheezing - Gastrointestinal Gastrointestinal: Abdominal Pain, Diarrhea, Nausea, Vomiting. absent: Dysphagia , Heartburn, Hematemesis - Genitourinary Genitourinary: absent: Change in Urinary Stream, Dysuria, Pyuria, Nocturia, Urinary Incontinence, Urinary Frequency Past Patient History - Infectious Disease Hx of Infectious Diseases: None - Tetanus Immunizations Tetanus Immunization: Unknown - Past Medical History & Family History Past Medical History?: No Past Family History: Reviewed and not pertinent - Past Social History Smoking Status: Never Smoked Chewing Tobacco Use: No Cigar Use: No Alcohol: None Drugs: Denies Home Situation {Lives}: Friends Domestic Violence: Negative - CARDIAC Hx Cardiac Disorders: No - NEUROLOGICAL Hx Neurological Disorder: No - HEENT Hx HEENT Problems: No - GENITOURINARY/GYNECOLOGICAL Other/Comment: hx of miscarriage - LMP January 2014 - PSYCHIATRIC Hx Substance Use: No - SURGICAL HISTORY Hx Surgeries: No Meds Allergies/Adverse Reactions: Allergies Allergy/AdvReac Type Severity Reaction Status Date / Time No Known Allergies Allergy Verified 05/13/14 09:58 - Medications Medications: Current Medications Acetaminophen (Tylenol 325mg Tab) 650 mg PO Q6H PRN PRN Reason: Pain, Mild (1-3) Acetaminophen (Tylenol 325mg Tab) 650 mg PO Q6H PRN PRN Reason: Fever >100.4 F Sodium Chloride (Sodium Chloride 0.9%) 1,000 mls @ 100 mls/hr IV .Q10H [facility] Stop: 08/31/17 17:59 Last Admin: 08/30/17 18:39 Dose: 100 mls/hr Potassium Phosphate 30 mmole/ (Sodium Chloride) 260 mls @ 65 mls/hr IV ONCE ONE Stop: 08/30/17 21:59 Last Admin: 08/30/17 18:57 Dose: 65 mls/hr Vancomycin HCl 1 gm/ Sodium (Chloride) 250 mls @ 166.667 mls/hr IVPB Q12 [facility] PRN Reason: Protocol Piperacillin Sod/Tazobactam (Sod 3.375 gm/ Sodium Chloride) 100 mls @ 100 mls/ hr IVPB Q6 [facility] PRN Reason: Protocol Ketorolac Tromethamine (Toradol) 30 mg IVP Q6H PRN PRN Reason: Pain, severe (8-10) Ondansetron HCl (Zofran Inj) 4 mg IVP Q6H PRN PRN Reason: Nausea/Vomiting Oxycodone/Acetaminophen (Percocet 5/325 Mg Tab) 1 tab PO Q4H PRN PRN Reason: Pain, moderate (4-7) Stop: 09/02/17 17:53 Pantoprazole Sodium (Protonix Ec Tab) 40 mg PO DAILY [facility] Physical Exam - Constitutional Appears: Well, Non-toxic, No Acute Distress - Head Exam Head Exam: ATRAUMATIC, NORMAL INSPECTION - Eye Exam Eye Exam: EOMI, Normal appearance, PERRL - ENT Exam ENT Exam: Mucous Membranes Dry, Normal Exam - Neck Exam Neck exam: Positive for: Full Rom, Meningismus - Respiratory Exam Respiratory Exam: NORMAL BREATHING PATTERN - Cardiovascular Exam Cardiovascular Exam: REGULAR RHYTHM - GI/Abdominal Exam GI & Abdominal Exam: Distended, Normal Bowel Sounds. absent: Guarding, Rebound , Rigid - Exam Speculum exam: absent: NORMAL SPECULUM EXAM (Pt declined pelvic exam due to current menses. ) Results - Vital Signs Recent Vital Signs: Last Vital Signs Temp 98.7 F 08/30/17 18:34 Pulse 98 H 08/30/17 18:34 Resp 23 08/30/17 18:34 BP 128/60 08/30/17 18:34 Pulse Ox 95 08/30/17 18:34 - Labs Result Diagrams: 08/30/17 13:00 08/30/17 13:00 Labs: Laboratory Results - last 24 hr 08/30/17 08/30/17 08/30/17 12:41 13:00 13:00 WBC 13.2 H RBC 4.21 Hgb 7.5 L Hct 24.1 L MCV 57.2 L MCH 17.8 L MCHC 31.2 L RDW 19.1 H Plt Count 255 MPV 8.4 Neut % (Auto) 84.5 H Lymph % (Auto) 8.5 L [place] % (Auto) 6.3 Eos % (Auto) 0.6 Baso % (Auto) 0.1 Neut # 11.2 H Lymph # 1.1 [place] # 0.8 Eos # 0.1 Baso # 0.0 Neutrophils % (Manual) 88 H Lymphocytes % (Manual) 7 L Monocytes % (Manual) 5 Platelet Estimate Normal Hypochromasia (manual) Moderate Anisocytosis (manual) Slight Microcytosis (manual) Marked Target Cells Slight Tear Drop Cells Slight Ovalocytes Slight Schistocytes Slight PT INR APTT pO2 43 VBG pH 7.50 H VBG pCO2 34 L VBG HCO3 27.2 VBG Total CO2 27.5 VBG O2 Sat (Calc) 89.8 H VBG Base Excess 3.2 H VBG Potassium 3.1 L Sodium 127.0 L 128 L Chloride 93.0 L 91 L Glucose 162 H Lactate 2.2 H FiO2 21.0 Potassium 3.3 L Carbon Dioxide 26 Anion Gap 14 BUN 29 H Creatinine 1.0 Est GFR ( Amer) > 60 Est GFR (Non-Af Amer) > 60 Random Glucose 152 H Calcium 8.2 L Phosphorus 1.7 L Magnesium 1.7 Total Bilirubin 0.8 AST 26 ALT 44 Alkaline Phosphatase 86 Total Protein 7.6 Albumin 3.9 Globulin 3.7 Albumin/Globulin Ratio 1.0 Lipase 34 Venous Blood Potassium 3.1 L Urine Color Urine Clarity Urine pH Ur Specific [place] [employer] Urine Protein Urine Glucose (UA) Urine Ketones Urine Blood Urine Nitrate Urine Bilirubin Urine Urobilinogen Ur Leukocyte Esterase Urine RBC (Auto) Urine Microscopic WBC Ur Squamous Epith Cells Urine Bacteria Hyaline Casts Granular Casts (Auto) 08/30/17 08/30/17 08/30/17 13:00 15:20 18:26 WBC RBC Hgb Hct MCV MCH MCHC RDW Plt Count MPV Neut % (Auto) Lymph % (Auto) [place] % (Auto) Eos % (Auto) Baso % (Auto) Neut # Lymph # [place] # Eos # Baso # Neutrophils % (Manual) Lymphocytes % (Manual) Monocytes % (Manual) Platelet Estimate Hypochromasia (manual) Anisocytosis (manual) Microcytosis (manual) Target Cells Tear Drop Cells Ovalocytes Schistocytes PT 13.8 H INR 1.2 APTT 30.9 pO2 18 L VBG pH 7.35 VBG pCO2 48 VBG HCO3 23.2 VBG Total CO2 28.0 VBG O2 Sat (Calc) 27.3 L VBG Base Excess 0.3 VBG Potassium 3.2 L Sodium 129.0 L Chloride 95.0 L Glucose 131 H Lactate 1.1 FiO2 21.0 Potassium Carbon Dioxide Anion Gap BUN Creatinine Est GFR ( Amer) Est GFR (Non-Af Amer) Random Glucose Calcium Phosphorus Magnesium Total Bilirubin AST ALT Alkaline Phosphatase Total Protein Albumin Globulin Albumin/Globulin Ratio Lipase Venous Blood Potassium 3.2 L Urine Color Susanna Urine Clarity Cloudy Urine pH 5.0 Ur Specific [place] [employer] 1.031 H Urine Protein 100 Urine Glucose (UA) Neg Urine Ketones Negative Urine Blood Large Urine Nitrate Negative Urine Bilirubin Negative Urine Urobilinogen 0.2-1.0 Ur Leukocyte Esterase Neg Urine RBC (Auto) 41 H Urine Microscopic WBC 20 H Ur Squamous Epith Cells 1 Urine Bacteria Rare Hyaline Casts >20 H Granular Casts (Auto) 24 Assessment & Plan - Assessment and Plan (Free Text) Assessment: 37 y/o F with pelvic cystic mass currently with fever, RLQ abd pain, vomiting and diarrhea. 1. Pelvic mass. - Tubo-ovarian abscess or PID unlikely due to similar previous finding in 2013' s TVUS. - Will order Pelvic US for tomorrow. - Urine test since NOT found on electronic charts. - Follow Surgery team's recommendations. - In case of being discharged, pt is in the process to be scheduled with MARIA EUGENIA Arce on Tuesday09/05/17. - F/U with [facility] Oncology as outpatient. 2. Febrile illness - Continue medical management. - Continue antibiotics. - Monitor V.S. - Date & Time Date: 08/30/17 Time: 20:00 <Crispin Cadet - Last Filed: 08/31/17 07:03> Meds - Medications Medications: Current Medications Acetaminophen (Tylenol 325mg Tab) 650 mg PO Q6H PRN PRN Reason: Pain, Mild (1-3) Acetaminophen (Tylenol 325mg Tab) 650 mg PO Q6H PRN PRN Reason: Fever >100.4 F Acetaminophen (Tylenol 650 Mg Supp) 650 mg [place] Q4 PRN PRN Reason: Fever >100.4 F Sodium Chloride (Sodium Chloride 0.9%) 1,000 mls @ 100 mls/hr IV .Q10H [facility] Stop: 08/31/17 17:59 Last Admin: 08/31/17 04:00 Dose: 100 mls/hr Piperacillin Sod/Tazobactam (Sod 3.375 gm/ Sodium Chloride) 100 mls @ 100 mls/ hr IVPB Q6 [facility] PRN Reason: Protocol Last Admin: 08/31/17 04:20 Dose: 100 mls/hr Vancomycin HCl 1 gm/ Sodium (Chloride) 250 mls @ 166.667 mls/hr IVPB Q12@0500, 1700 [facility] PRN Reason: Protocol Last Admin: 08/31/17 04:00 Dose: 166.667 mls/hr Ketorolac Tromethamine (Toradol) 30 mg IVP Q6H PRN PRN Reason: Pain, severe (8-10) Last Admin: 08/31/17 05:47 Dose: 30 mg Ondansetron HCl (Zofran Inj) 4 mg IVP Q6H PRN PRN Reason: Nausea/Vomiting Oxycodone/Acetaminophen (Percocet 5/325 Mg Tab) 1 tab PO Q4H PRN PRN Reason: Pain, moderate (4-7) Stop: 09/02/17 17:53 Pantoprazole Sodium (Protonix Ec Tab) 40 mg PO DAILY [facility] Pneumococcal Polyvalent Vaccine (Pneumovax 23 Vaccine) 0.5 ml IM .ONCE ONE Stop: 08/31/17 09:01 Results - Vital Signs Recent Vital Signs: Last Vital Signs Temp 98.6 F 08/31/17 04:00 Pulse 91 H 08/31/17 06:00 Resp 24 08/31/17 06:00 BP 105/64 08/31/17 06:00 Pulse Ox 96 08/31/17 06:00 - Labs Result Diagrams: 08/31/17 04:30 08/31/17 04:30 Labs: Laboratory Results - last 24 hr 08/30/17 08/30/17 08/30/17 12:41 13:00 13:00 WBC 13.2 H RBC 4.21 Hgb 7.5 L Hct 24.1 L MCV 57.2 L MCH 17.8 L MCHC 31.2 L RDW 19.1 H Plt Count 255 MPV 8.4 Neut % (Auto) 84.5 H Lymph % (Auto) 8.5 L [place] % (Auto) 6.3 Eos % (Auto) 0.6 Baso % (Auto) 0.1 Neut # 11.2 H Lymph # 1.1 [place] # 0.8 Eos # 0.1 Baso # 0.0 Neutrophils % (Manual) 88 H Lymphocytes % (Manual) 7 L Monocytes % (Manual) 5 Platelet Estimate Normal Hypochromasia (manual) Moderate Anisocytosis (manual) Slight Microcytosis (manual) Marked Target Cells Slight Tear Drop Cells Slight Ovalocytes Slight Schistocytes Slight Retic Count PT INR APTT pO2 43 VBG pH 7.50 H VBG pCO2 34 L VBG HCO3 27.2 VBG Total CO2 27.5 VBG O2 Sat (Calc) 89.8 H VBG Base Excess 3.2 H VBG Potassium 3.1 L Sodium 127.0 L 128 L Chloride 93.0 L 91 L Glucose 162 H Lactate 2.2 H FiO2 21.0 Potassium 3.3 L Carbon Dioxide 26 Anion Gap 14 BUN 29 H Creatinine 1.0 Est GFR ( Amer) > 60 Est GFR (Non-Af Amer) > 60 Random Glucose 152 H Lactic Acid Calcium 8.2 L Phosphorus 1.7 L Magnesium 1.7 Iron TIBC % Saturation Ferritin Total Bilirubin 0.8 AST 26 ALT 44 Alkaline Phosphatase 86 Total Protein 7.6 Albumin 3.9 Globulin 3.7 Albumin/Globulin Ratio 1.0 Lipase 34 Vitamin B12 Venous Blood Potassium 3.1 L Urine Color Urine Clarity Urine pH Ur Specific [place] [employer] Urine Protein Urine Glucose (UA) Urine Ketones Urine Blood Urine Nitrate Urine Bilirubin Urine Urobilinogen Ur Leukocyte Esterase Urine RBC (Auto) Urine Microscopic WBC Ur Squamous Epith Cells Urine Bacteria Hyaline Casts Granular Casts (Auto) 08/30/17 08/30/17 08/30/17 13:00 15:20 18:26 WBC RBC Hgb Hct MCV MCH MCHC RDW Plt Count MPV Neut % (Auto) Lymph % (Auto) [place] % (Auto) Eos % (Auto) Baso % (Auto) Neut # Lymph # [place] # Eos # Baso # Neutrophils % (Manual) Lymphocytes % (Manual) Monocytes % (Manual) Platelet Estimate Hypochromasia (manual) Anisocytosis (manual) Microcytosis (manual) Target Cells Tear Drop Cells Ovalocytes Schistocytes Retic Count PT 13.8 H INR 1.2 APTT 30.9 pO2 18 L VBG pH 7.35 VBG pCO2 48 VBG HCO3 23.2 VBG Total CO2 28.0 VBG O2 Sat (Calc) 27.3 L VBG Base Excess 0.3 VBG Potassium 3.2 L Sodium 129.0 L Chloride 95.0 L Glucose 131 H Lactate 1.1 FiO2 21.0 Potassium Carbon Dioxide Anion Gap BUN Creatinine Est GFR ( Amer) Est GFR (Non-Af Amer) Random Glucose Lactic Acid Calcium Phosphorus Magnesium Iron TIBC % Saturation Ferritin Total Bilirubin AST ALT Alkaline Phosphatase Total Protein Albumin Globulin Albumin/Globulin Ratio Lipase Vitamin B12 Venous Blood Potassium 3.2 L Urine Color [place] Urine Clarity Cloudy Urine pH 5.0 Ur Specific [place] [employer] 1.031 H Urine Protein 100 Urine Glucose (UA) Neg Urine Ketones Negative Urine Blood Large Urine Nitrate Negative Urine Bilirubin Negative Urine Urobilinogen 0.2-1.0 Ur Leukocyte Esterase Neg Urine RBC (Auto) 41 H Urine Microscopic WBC 20 H Ur Squamous Epith Cells 1 Urine Bacteria Rare Hyaline Casts >20 H Granular Casts (Auto) 24 08/30/17 08/30/17 08/30/17 20:45 20:45 20:45 WBC RBC Hgb Hct MCV MCH MCHC RDW Plt Count MPV Neut % (Auto) Lymph % (Auto) [place] % (Auto) Eos % (Auto) Baso % (Auto) Neut # Lymph # [place] # Eos # Baso # Neutrophils % (Manual) Lymphocytes % (Manual) Monocytes % (Manual) Platelet Estimate Hypochromasia (manual) Anisocytosis (manual) Microcytosis (manual) Target Cells Tear Drop Cells Ovalocytes Schistocytes Retic Count 1.4 PT INR APTT pO2 VBG pH VBG pCO2 VBG HCO3 VBG Total CO2 VBG O2 Sat (Calc) VBG Base Excess VBG Potassium Sodium Chloride Glucose Lactate FiO2 Potassium Carbon Dioxide Anion Gap BUN Creatinine Est GFR ( Amer) Est GFR (Non-Af Amer) Random Glucose Lactic Acid Calcium Phosphorus Magnesium Iron < 10 L TIBC 383 % Saturation < 2.6 L Ferritin 24.2 Total Bilirubin AST ALT Alkaline Phosphatase Total Protein Albumin Globulin Albumin/Globulin Ratio Lipase Vitamin B12 451 Venous Blood Potassium Urine Color Urine Clarity Urine pH Ur Specific [place] [employer] Urine Protein Urine Glucose (UA) Urine Ketones Urine Blood Urine Nitrate Urine Bilirubin Urine Urobilinogen Ur Leukocyte Esterase Urine RBC (Auto) Urine Microscopic WBC Ur Squamous Epith Cells Urine Bacteria Hyaline Casts Granular Casts (Auto) 08/31/17 08/31/17 08/31/17 04:30 04:30 04:30 WBC 11.9 H RBC 3.71 L Hgb 6.6 L Hct 21.7 L MCV 58.5 L MCH 17.8 L MCHC 30.4 L RDW 19.4 H Plt Count 254 MPV 8.8 Neut % (Auto) 81.0 H Lymph % (Auto) 11.2 L [place] % (Auto) 7.2 Eos % (Auto) 0.2 Baso % (Auto) 0.4 Neut # 9.7 H Lymph # 1.3 [place] # 0.9 H Eos # 0.0 Baso # 0.0 Neutrophils % (Manual) Lymphocytes % (Manual) Monocytes % (Manual) Platelet Estimate Hypochromasia (manual) Anisocytosis (manual) Microcytosis (manual) Target Cells Tear Drop Cells Ovalocytes Schistocytes Retic Count PT INR APTT pO2 VBG pH VBG pCO2 VBG HCO3 VBG Total CO2 VBG O2 Sat (Calc) VBG Base Excess VBG Potassium Sodium 136 Chloride 101 Glucose Lactate FiO2 Potassium 3.4 L Carbon Dioxide 27 Anion Gap 11 BUN 25 H Creatinine 0.9 Est GFR ( Amer) > 60 Est GFR (Non-Af Amer) > 60 Random Glucose 106 H Lactic Acid 1.0 Calcium 7.3 L Phosphorus 3.6 Magnesium 2.0 Iron TIBC % Saturation Ferritin Total Bilirubin 0.7 AST 29 ALT 41 Alkaline Phosphatase 65 Total Protein 6.5 Albumin 3.1 L D Globulin 3.4 Albumin/Globulin Ratio 0.9 L Lipase Vitamin B12 Venous Blood Potassium Urine Color Urine Clarity Urine pH Ur Specific [place] [employer] Urine Protein Urine Glucose (UA) Urine Ketones Urine Blood Urine Nitrate Urine Bilirubin Urine Urobilinogen Ur Leukocyte Esterase Urine RBC (Auto) Urine Microscopic WBC Ur Squamous Epith Cells Urine Bacteria Hyaline Casts Granular Casts (Auto) Assessment & Plan - Assessment and Plan (Free Text) Plan: OB Hospitalist on-call...With PGY1, I saw and examined this patient in ICU ( admitted for sepsis). She appears comfortable and resting in bed. No evidence of acute abdomen. Pelvic mass (prob ovarian with Hx of similar mass 2013) : pelvic sono/tumor markers/[facility] ONC referral Febrile illnessTOA/PID unlikely - ?GI etiology : surgery following Anemia - asymptomatic : Fe deficiency GUILLERMINA
[2017-08-30 21:54] LABS: FERRITIN 24.2 ng/Ml (6.24-137.0)
[2017-08-30 22:09] LABS: IRON < 10 ug/dL (37-170)
[2017-08-30] MEDS: Piperacillin/Tazobact 3.375 GM in Sodium Chloride 0.9% 100 ML IVPB SCH (22:35)
[2017-08-30 22:45] LABS: TOTAL IRON BINDING CAPACITY 383 ug/dL (250-450)
[2017-08-30 22:49] LABS: % IRON SATURATION < 2.6 % (20-55)
[2017-08-31] MEDS ORDERED: Chlorhexidine Gluconate 1 APPL/PKT TP ONE (00:07)
[2017-08-31] MEDS: Sodium Chloride 0.9% 1,000 ML IV SCH ×2 (04:00→16:35)
[2017-08-31] MEDS: Piperacillin/Tazobact 3.375 GM in Sodium Chloride 0.9% 100 ML IVPB SCH ×4 (04:20→21:08)
[2017-08-31 05:32] LABS: BASO % 0.4 % (0.0-2.0); EOS % 0.2 % (0.0-4.0); HEMOGLOBIN 6.6 g/dL (12.0-16.0); LYMPH # 1.3 K/uL (1.0-4.3); LYMPH % 11.2 % (20.0-40.0); MEAN CELL VOLUME 58.5 fl (81.0-99.0); MEAN CORPUSCULAR HEMOGLOBIN 17.8 pg (27.0-31.0); MEAN CORPUSCULAR HGB CONC 30.4 g/dL (33.0-37.0); MEAN PLATELET VOLUME 8.8 fl (7.2-11.7); MONO # 0.9 K/uL (0.0-0.8); MONO % 7.2 % (0.0-10.0); NEUT # 9.7 K/uL (1.8-7.0); RBC 3.71 Mil/uL (3.80-5.20); RED CELL DISTRIBUTION WIDTH 19.4 % (11.5-14.5); WHITE BLOOD COUNT 11.9 K/uL (4.8-10.8)
[2017-08-31 06:30] LABS: ALB/GLOB RATIO 0.9 (1.0-2.1); ALBUMIN 3.1 g/dL (3.5-5.0); ALT/SGPT 41 U/L (9-52); AST/SGOT 29 U/L (14-36); BLOOD UREA NITROGEN 25 mg/dl (7-17); CALCIUM 7.3 mg/dL (8.4-10.2); GFR AFRICAN-AMERICAN > 60; GFR NON-AFRICAN AMERICAN > 60
[2017-08-31 06:35] VITALS: BMI 39.4
[2017-08-31] MEDS ORDERED: Pneumococcal 23-Valent Vaccine IM ONE (09:00)
--- NOTE | 2017-08-31 09:11 | CP.PCM.PN ---
Subjective - Date & Time of Evaluation Date of Evaluation: 08/31/17 Time of Evaluation: 08:30 - Subjective Subjective: Patient seen and examined bedside. Feeling a little better. Denies any palpitations, dizziness, SOB or Chest pain. Still with right flank pain radiating to right lower quadrant but better.Abdomen is distended BP 107/45 HR 82 Tmax 101.4 saturating 100 % in RA No acute issues overnight. currently having menstrual cycle ( started 3 days ago ) Hgb 6.6 WBC 11.9 Objective - Vital Signs/Intake and Output Vital Signs (last 24 hours): Temp Pulse Resp BP Pulse Ox 98.8 F 94 H 27 H 97/51 L 97 08/31/17 08:00 08/31/17 08:00 08/31/17 08:00 08/31/17 08:00 08/31/17 08:00 Intake and Output: 08/31/17 08/31/17 06:59 18:59 Intake Total 1000 100 Output Total 750 Balance 250 100 - Medications Medications: Current Medications Acetaminophen (Tylenol 325mg Tab) 650 mg PO Q6H PRN PRN Reason: Pain, Mild (1-3) Acetaminophen (Tylenol 325mg Tab) 650 mg PO Q6H PRN PRN Reason: Fever >100.4 F Acetaminophen (Tylenol 650 Mg Supp) 650 mg [place] Q4 PRN PRN Reason: Fever >100.4 F Last Admin: 08/31/17 00:10 Dose: 650 mg Sodium Chloride (Sodium Chloride 0.9%) 1,000 mls @ 100 mls/hr IV .Q10H [facility] Stop: 08/31/17 17:59 Last Admin: 08/31/17 04:00 Dose: 100 mls/hr Piperacillin Sod/Tazobactam (Sod 3.375 gm/ Sodium Chloride) 100 mls @ 100 mls/ hr IVPB Q6 [facility] PRN Reason: Protocol Last Admin: 08/31/17 04:20 Dose: 100 mls/hr Vancomycin HCl 1 gm/ Sodium (Chloride) 250 mls @ 166.667 mls/hr IVPB Q12@0500, 1700 [facility] PRN Reason: Protocol Last Admin: 08/31/17 04:00 Dose: 166.667 mls/hr Iron Sucrose 100 mg/ Sodium (Chloride) 105 mls @ 105 mls/hr IVPB DAILY [facility] Stop: 09/06/17 09:01 Ketorolac Tromethamine (Toradol) 30 mg IVP Q6H PRN PRN Reason: Pain, severe (8-10) Last Admin: 08/31/17 05:47 Dose: 30 mg Ondansetron HCl (Zofran Inj) 4 mg IVP Q6H PRN PRN Reason: Nausea/Vomiting Oxycodone/Acetaminophen (Percocet 5/325 Mg Tab) 1 tab PO Q4H PRN PRN Reason: Pain, moderate (4-7) Stop: 09/02/17 17:53 Pantoprazole Sodium (Protonix Ec Tab) 40 mg PO DAILY [facility] - Labs Labs: 08/31/17 04:30 08/31/17 04:30 PT 13.8 Seconds (9.8-13.1) H 08/30/17 13:00 INR 1.2 (0.9-1.2) 08/30/17 13:00 APTT 30.9 Seconds (25.6-37.1) 08/30/17 13:00 - Constitutional Appears: Non-toxic, No Acute Distress - Head Exam Head Exam: ATRAUMATIC, NORMAL INSPECTION, NORMOCEPHALIC - Eye Exam Eye Exam: EOMI, Normal appearance, PERRL Pupil Exam: NORMAL ACCOMODATION - ENT Exam ENT Exam: Mucous Membranes Moist, Normal Exam - Neck Exam Neck Exam: Full ROM, Normal Inspection - Respiratory Exam Respiratory Exam: Clear to Ausculation Bilateral, NORMAL BREATHING PATTERN. absent: Rales, Rhonchi, Wheezes - Cardiovascular Exam Cardiovascular Exam: Tachycardia, REGULAR RHYTHM, +S1, +S2. absent: JVD - GI/Abdominal Exam GI & Abdominal Exam: Distended, Soft. absent: Guarding, Tenderness, Rebound - Rectal Exam Rectal Exam: Deferred - Extremities Exam Extremities Exam: Normal Capillary Refill, Normal Inspection. absent: Calf Tenderness, Pedal Edema - Back Exam Back Exam: NORMAL INSPECTION - Neurological Exam Neurological Exam: Alert, Awake, CN II-XII Intact, Oriented x3 - Psychiatric Exam Psychiatric exam: Normal Affect - Skin Skin Exam: Dry, Pallor, Warm Assessment and Plan - Assessment and Plan (Free Text) Assessment: 37 y/o female with no significant PMH presented to ER complaining of 5 day history of right flank pain radiating to her RLQ associated with fever ,watery diarrhea, nausea , vomiting.Patient states that pain is dull like, improved with tylenol, denies any urinary symptoms, dysuria, frequency. She gives history of 17 years ago and complains of abdominal distention for the past 2 years. 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 In ER found to be febrile Tmax 101.3, WBC 13 lactate 2.2 Na 128 [address] abdomen and pelvis showed :Colonic wall thickening on the right with adjacent inflammatory changes and small free fluid. The appendix is not identified. Extensive inflammatory changes which may be related to phlegmonous change/ developing abscess evident within right lower quadrant. Several foci of gas are noted in this region which are not clearly intraluminal. Appearance suspicious for loculated extra luminal gas, however free air cannot be entirely excluded. Correlate clinically for possibility of acute appendicitis/ruptured appendix. 21.3 x 26.4 cm cystic mass within the right mid pelvis of unclear etiology, possibly ovarian in origin. Hepatomegaly. Hepatic steatosis. Patchy right lower lobe atelectasis/infiltrates. Patient admitted in ICU for sepsis secondary to intra abdominal pathology. 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 Left adnexa is not visualized likely obscured common displaced by the large pelvic mass. Cystic pelvic mass incompletely visualize confirms findings on recent CT scan. This cannot be identified as originating from either the uterus or either adnexa. Will order MRI abdomen and pelvis to better visualize the pelvic mass 2. 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 Hyponatremia most likely volume depleted due to diarrhea improved with IVF 4. Electrolyte abnormality - hypokalemia and hypophosphatemia Replaced with Kphos 5. Azotemia BUN 29 Most likely prerenal given IVF 6. Abdominal distention most likely secondary to large pelvic mass Ct abdomen showed suspicious free air and fluid and hepatomegaly with steatosis Abdominal obstructive series showed no free air under the diaphragm. Patient has no peritonitis signs Continue monitoring 7. Anemia of chroonic disease and iron deficiency Hgb dropped from 7.5 to 6.6 Will transfuse 2 unit PRBc today Anemia work up showed very low iron stores . Started Venofer IV 8. DVt prophylaxis SCD hold off any anticoagulation for now
[2017-08-31] MEDS ORDERED: Influenza Vaccine 18yr & older 0.5 ML/45 MCG SYR IM ONE (10:49)
[2017-08-31] MEDS: Potassium CL 10 MEQ/50 ML 50 ML IVPB SCH ×2 (12:31→15:07)
[2017-08-31] MEDS: Pantoprazole 40 mg EC Tab PO SCH (12:46)
[2017-08-31 14:24] LABS: FOLATE 13.3 ng/mL
--- NOTE | 2017-08-31 15:32 | US ---
HISTORY: History of undetermined pelvic mass. Menstrual status: LMP unknown COMPARISON: 08/01/2014 the pelvic ultrasound. August 30, 2017. CT abdomen and pelvis. Summary of findings on the comparison examination: 21.3 x 26.4 cm cystic mass within the right mid pelvis of unclear etiology, possibly ovarian in origin. TECHNIQUE: Transabdominal only. Real-time technique with 2D, duplex and color Doppler FINDINGS: UTERUS: Measures 5 x 6.3 x 9.5 cm. Normal in size and appearance. No fibroid or other mass lesion seen. ENDOMETRIUM: Measures 6.4 mm in diameter. No ultrasound findings to suggest gestational sac, fluid, debris, mass or polyp or other pathologic process within the endometrium. CERVIX: No cervical abnormality identified. RIGHT OVARY: Measures 2.2 x 4.2 x 4.5 cm. No solid mass. Normal flow. LEFT OVARY: Not visualized. FREE FLUID: No significant free fluid noted. OTHER FINDINGS: Suprapubic mass incompletely visualized midline measuring at least 10 x 17 x 20 cm. IMPRESSION: Unremarkable uterus and right ovary. Left adnexa is not visualized likely obscured common displaced by the large pelvic mass. Cystic pelvic mass incompletely visualize confirms findings on recent CT scan. This cannot be identified as originating from either the uterus or either adnexa.
--- NOTE | 2017-08-31 16:46 | CP.PCM.PN ---
Subjective - Date & Time of Evaluation Date of Evaluation: 08/31/17 Time of Evaluation: 16:43 - Subjective Subjective: General Surgery Progress Note for Dr. Kay This patient was seen and examined, overnight her HGB dropped from 7.5 -->6.6 she was subsequently transfused two units prbc. Otherwise her pain is decreased and she has no new complaints. She reports that her pain is improved. At the time of this authors exam she has not yet eaten however her diet has been changed to a regular diet. Objective - Vital Signs/Intake and Output Vital Signs (last 24 hours): Temp Pulse Resp BP Pulse Ox 100.1 F H 104 H 17 108/58 L 93 L 08/31/17 16:00 08/31/17 16:00 08/31/17 16:00 08/31/17 16:00 08/31/17 16:00 Intake and Output: 08/31/17 08/31/17 06:59 18:59 Intake Total 1000 2440 Output Total 750 Balance 250 2440 - Medications Medications: Current Medications Acetaminophen (Tylenol 325mg Tab) 650 mg PO Q6H PRN PRN Reason: Pain, Mild (1-3) Acetaminophen (Tylenol 325mg Tab) 650 mg PO Q6H PRN PRN Reason: Fever >100.4 F Acetaminophen (Tylenol 650 Mg Supp) 650 mg [place] Q4 PRN PRN Reason: Fever >100.4 F Last Admin: 08/31/17 00:10 Dose: 650 mg Sodium Chloride (Sodium Chloride 0.9%) 1,000 mls @ 100 mls/hr IV .Q10H ALETHA Stop: 08/31/17 17:59 Last Admin: 08/31/17 16:35 Dose: 100 mls/hr Piperacillin Sod/Tazobactam (Sod 3.375 gm/ Sodium Chloride) 100 mls @ 100 mls/ hr IVPB Q6 ALETHA PRN Reason: Protocol Last Admin: 08/31/17 16:36 Dose: 100 mls/hr Vancomycin HCl 1 gm/ Sodium (Chloride) 250 mls @ 166.667 mls/hr IVPB Q12@0500, 1700 ALETHA PRN Reason: Protocol Last Admin: 08/31/17 16:36 Dose: 166.667 mls/hr Iron Sucrose 100 mg/ Sodium (Chloride) 105 mls @ 105 mls/hr IVPB DAILY A[facility] Stop: 09/06/17 09:01 Ketorolac Tromethamine (Toradol) 30 mg IVP Q6H PRN PRN Reason: Pain, severe (8-10) Last Admin: 08/31/17 05:47 Dose: 30 mg Ondansetron HCl (Zofran Inj) 4 mg IVP Q6H PRN PRN Reason: Nausea/Vomiting Oxycodone/Acetaminophen (Percocet 5/325 Mg Tab) 1 tab PO Q4H PRN PRN Reason: Pain, moderate (4-7) Stop: 09/02/17 17:53 Pantoprazole Sodium (Protonix Ec Tab) 40 mg PO DAILY [facility] Last Admin: 08/31/17 12:46 Dose: Not Given - Labs Labs: 08/31/17 04:30 08/31/17 04:30 PT 13.8 Seconds (9.8-13.1) H 08/30/17 13:00 INR 1.2 (0.9-1.2) 08/30/17 13:00 APTT 30.9 Seconds (25.6-37.1) 08/30/17 13:00 - Constitutional Appears: Non-toxic, No Acute Distress - Head Exam Head Exam: ATRAUMATIC, NORMOCEPHALIC - Eye Exam Eye Exam: EOMI - ENT Exam ENT Exam: Mucous Membranes Moist, Normal Exam - Respiratory Exam Respiratory Exam: NORMAL BREATHING PATTERN - Cardiovascular Exam Cardiovascular Exam: REGULAR RHYTHM, +S1, +S2 - GI/Abdominal Exam GI & Abdominal Exam: Soft. 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
--- NOTE | 2017-08-31 20:32 | CP.PCM.PN ---
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 Pt reports mild right sided abdominal pain (4/10). Pt is tolerating PO. Pt received 2 units of pRBC today. Denies nausea, vomiting, fever, chills. Denies headache, dizziness, chest pain or dysnpea. Objective - Vital Signs/Intake and Output Vital Signs (last 24 hours): Temp Pulse Resp BP Pulse Ox 100.5 F H 103 H 18 117/70 93 L 08/31/17 18:37 08/31/17 18:37 08/31/17 18:37 08/31/17 18:37 08/31/17 18:37 Intake and Output: 08/31/17 09/01/17 18:59 06:59 Intake Total 2640 Balance 2640 - Medications Medications: Current Medications Acetaminophen (Tylenol 325mg Tab) 650 mg PO Q6H PRN PRN Reason: Pain, Mild (1-3) Acetaminophen (Tylenol 325mg Tab) 650 mg PO Q6H PRN PRN Reason: Fever >100.4 F Acetaminophen (Tylenol 650 Mg Supp) 650 mg [place] Q4 PRN PRN Reason: Fever >100.4 F Last Admin: 08/31/17 00:10 Dose: 650 mg Piperacillin Sod/Tazobactam (Sod 3.375 gm/ Sodium Chloride) 100 mls @ 100 mls/ hr IVPB Q6 ALETHA PRN Reason: Protocol Last Admin: 08/31/17 16:36 Dose: 100 mls/hr Vancomycin HCl 1 gm/ Sodium (Chloride) 250 mls @ 166.667 mls/hr IVPB Q12@0500, 1700 ALETHA PRN Reason: Protocol Last Admin: 08/31/17 16:36 Dose: 166.667 mls/hr Iron Sucrose 100 mg/ Sodium (Chloride) 105 mls @ 105 mls/hr IVPB DAILY [facility] Stop: 09/06/17 09:01 Ketorolac Tromethamine (Toradol) 30 mg IVP Q6H PRN PRN Reason: Pain, severe (8-10) Last Admin: 08/31/17 05:47 Dose: 30 mg Ondansetron HCl (Zofran Inj) 4 mg IVP Q6H PRN PRN Reason: Nausea/Vomiting Oxycodone/Acetaminophen (Percocet 5/325 Mg Tab) 1 tab PO Q4H PRN PRN Reason: Pain, moderate (4-7) Stop: 09/02/17 17:53 Pantoprazole Sodium (Protonix Ec Tab) 40 mg PO DAILY ALETHA Last Admin: 08/31/17 12:46 Dose: Not Given - Labs Labs: 08/31/17 04:30 08/31/17 04:30 PT 13.8 Seconds (9.8-13.1) H 08/30/17 13:00 INR 1.2 (0.9-1.2) 08/30/17 13:00 APTT 30.9 Seconds (25.6-37.1) 08/30/17 13:00 - Constitutional Appears: Non-toxic, No Acute Distress - Head Exam Head Exam: ATRAUMATIC, NORMOCEPHALIC - ENT Exam ENT Exam: Mucous Membranes Moist - Respiratory Exam Respiratory Exam: Clear to Ausculation Bilateral. absent: Rales, Rhonchi, Wheezes - Cardiovascular Exam Cardiovascular Exam: REGULAR RHYTHM, RRR, +S1, +S2. absent: Murmur - GI/Abdominal Exam GI & Abdominal Exam: Distended, Soft, Normal Bowel Sounds. absent: Guarding, Tenderness, Rebound Additional comments: No signs of acute abdomen or peritonitis. - Extremities Exam Extremities Exam: Normal Capillary Refill. absent: Calf Tenderness, Pedal Edema - Neurological Exam Neurological Exam: Alert, Awake, Oriented x3 - Psychiatric Exam Psychiatric exam: Normal Affect, Normal Mood Assessment and Plan - Assessment and Plan (Free Text) Assessment: 37 y/o hx pelvic cystic mass admitted to [facility] for sepsis. Plan: 1. Pelvic mass -Unlikely to be TOA or PID -Similar previous mass finding in 2014's TVUS -Pelvic US today showed: Unremarkable uterus and right ovary. Left adnexa is not visualized likely obscured common displaced by the large pelvic mass. Cystic pelvic mass incompletely visualize confirms findings on recent CT scan. This cannot be identified as originating from either the uterus or either adnexa. -F/U MRI of abdomen and pelvis. -If patient is to be discharged, she can be seen by Dr Solano at [facility] clinic on Tuesday09/05/17. 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 2. Sepsis - Continue antibiotics and medical management as per primary team. Case d/w on-call OB hospitalist Dr. Scott. Sultan Salomon, PGY1 <Anna Scott - Last Filed: 09/02/17 08:58> Objective - Vital Signs/Intake and Output Vital Signs (last 24 hours): Temp Pulse Resp BP Pulse Ox 100.1 F H 92 H 20 124/77 97 09/02/17 08:00 09/02/17 08:00 09/02/17 08:00 09/02/17 08:00 09/02/17 08:00 - Medications Medications: Current Medications Acetaminophen (Tylenol 325mg Tab) 650 mg PO Q6H PRN PRN Reason: Pain, Mild (1-3) Last Admin: 09/01/17 15:44 Dose: 650 mg Acetaminophen (Tylenol 325mg Tab) 650 mg PO Q6H PRN PRN Reason: Fever >100.4 F Last Admin: 09/02/17 05:02 Dose: 650 mg Acetaminophen (Tylenol 650 Mg Supp) 650 mg [place] Q4 PRN PRN Reason: Fever >100.4 F Last Admin: 08/31/17 00:10 Dose: 650 mg Piperacillin Sod/Tazobactam (Sod 3.375 gm/ Sodium Chloride) 100 mls @ 100 mls/ hr IVPB Q6 ALETHA PRN Reason: Protocol Last Admin: 09/02/17 04:03 Dose: 100 mls/hr Vancomycin HCl 1 gm/ Sodium (Chloride) 250 mls @ 166.667 mls/hr IVPB Q12@0500, 1700 ALETHA PRN Reason: Protocol Last Admin: 09/02/17 05:03 Dose: 166.667 mls/hr Iron Sucrose 100 mg/ Sodium (Chloride) 105 mls @ 105 mls/hr IVPB DAILY [facility] Stop: 09/06/17 09:01 Last Admin: 09/01/17 10:37 Dose: 105 mls/hr Ketorolac Tromethamine (Toradol) 30 mg IVP Q6H PRN PRN Reason: Pain, severe (8-10) Last Admin: 09/01/17 08:20 Dose: 30 mg Ondansetron HCl (Zofran Inj) 4 mg IVP Q6H PRN PRN Reason: Nausea/Vomiting Oxycodone/Acetaminophen (Percocet 5/325 Mg Tab) 1 tab PO Q4H PRN PRN Reason: Pain, moderate (4-7) Stop: 09/02/17 17:53 Last Admin: 08/31/17 20:31 Dose: 1 tab Pantoprazole Sodium (Protonix Ec Tab) 40 mg PO DAILY ALETHA Last Admin: 09/01/17 08:23 Dose: 40 mg - Labs Labs: 09/02/17 04:50 09/02/17 04:50 PT 13.8 Seconds (9.8-13.1) H 08/30/17 13:00 INR 1.2 (0.9-1.2) 08/30/17 13:00 APTT 30.9 Seconds (25.6-37.1) 08/30/17 13:00 Assessment and Plan - Assessment and Plan (Free Text) Assessment: OB Hospitalist Addendum: Pt seen and examined by me. Agree w/ above. 37 yo HD#2 admitted for sepsis, fever, vomiting and diarrhea w/ a known 20 cm suprapubic mass since 2014. Pt reports that she is feeling better. Rec pelvic MRI prior to surgery for mass. (ES)
[2017-09-01] MEDS: Piperacillin/Tazobact 3.375 GM in Sodium Chloride 0.9% 100 ML IVPB SCH ×4 (04:09→21:56)
[2017-09-01 05:38] LABS: HEMOGLOBIN 7.4 g/dL (12.0-16.0); MEAN CELL VOLUME 64.3 fl (81.0-99.0); MEAN CORPUSCULAR HEMOGLOBIN 19.7 pg (27.0-31.0); MEAN CORPUSCULAR HGB CONC 30.6 g/dL (33.0-37.0); RBC 3.75 Mil/uL (3.80-5.20); RED CELL DISTRIBUTION WIDTH 27.4 % (11.5-14.5); WHITE BLOOD COUNT 14.9 K/uL (4.8-10.8)
[2017-09-01 06:16] LABS: BLOOD UREA NITROGEN 9 mg/dl (7-17); CALCIUM 7.3 mg/dL (8.4-10.2); GFR AFRICAN-AMERICAN > 60; GFR NON-AFRICAN AMERICAN > 60
--- NOTE | 2017-09-01 08:20 | CP.PCM.PN ---
Subjective - Date & Time of Evaluation Date of Evaluation: 09/01/17 Time of Evaluation: 08:16 - Subjective Subjective: General Surgery Note for Dr. Kay This patient was seen and examined this AM at bedside no acute events overnight. She reports that her pain continues to improve she is tolerating her diet without complaints. Objective - Vital Signs/Intake and Output Vital Signs (last 24 hours): Temp Pulse Resp BP Pulse Ox 98.6 F 86 18 103/65 93 L 09/01/17 08:00 09/01/17 08:00 09/01/17 08:00 09/01/17 08:00 09/01/17 08:00 - Medications Medications: Current Medications Acetaminophen (Tylenol 325mg Tab) 650 mg PO Q6H PRN PRN Reason: Pain, Mild (1-3) Last Admin: 09/01/17 06:40 Dose: 650 mg Acetaminophen (Tylenol 325mg Tab) 650 mg PO Q6H PRN PRN Reason: Fever >100.4 F Acetaminophen (Tylenol 650 Mg Supp) 650 mg [place] Q4 PRN PRN Reason: Fever >100.4 F Last Admin: 08/31/17 00:10 Dose: 650 mg Piperacillin Sod/Tazobactam (Sod 3.375 gm/ Sodium Chloride) 100 mls @ 100 mls/ hr IVPB Q6 ALETHA PRN Reason: Protocol Last Admin: 09/01/17 04:09 Dose: 100 mls/hr Vancomycin HCl 1 gm/ Sodium (Chloride) 250 mls @ 166.667 mls/hr IVPB Q12@0500, 1700 ALETHA PRN Reason: Protocol Last Admin: 09/01/17 05:10 Dose: 166.667 mls/hr Iron Sucrose 100 mg/ Sodium (Chloride) 105 mls @ 105 mls/hr IVPB DAILY [facility] Stop: 09/06/17 09:01 Ketorolac Tromethamine (Toradol) 30 mg IVP Q6H PRN PRN Reason: Pain, severe (8-10) Last Admin: 08/31/17 05:47 Dose: 30 mg Ondansetron HCl (Zofran Inj) 4 mg IVP Q6H PRN PRN Reason: Nausea/Vomiting Oxycodone/Acetaminophen (Percocet 5/325 Mg Tab) 1 tab PO Q4H PRN PRN Reason: Pain, moderate (4-7) Stop: 09/02/17 17:53 Last Admin: 08/31/17 20:31 Dose: 1 tab Pantoprazole Sodium (Protonix Ec Tab) 40 mg PO DAILY [facility]LE[facility]A Last Admin: 08/31/17 12:46 Dose: Not Given - Labs Labs: 09/01/17 04:40 09/01/17 04:40 PT 13.8 Seconds (9.8-13.1) H 08/30/17 13:00 INR 1.2 (0.9-1.2) 08/30/17 13:00 APTT 30.9 Seconds (25.6-37.1) 08/30/17 13:00 - Constitutional Appears: Non-toxic, No Acute Distress - Head Exam Head Exam: ATRAUMATIC, NORMOCEPHALIC - Eye Exam Eye Exam: EOMI - ENT Exam ENT Exam: Mucous Membranes Moist - Respiratory Exam Respiratory Exam: NORMAL BREATHING PATTERN - Cardiovascular Exam Cardiovascular Exam: REGULAR RHYTHM - GI/Abdominal Exam GI & Abdominal Exam: Soft. 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
[2017-09-01] MEDS: Pantoprazole 40 mg EC Tab PO SCH (08:23)
[2017-09-01] MEDS: Potassium CL 10 MEQ/50 ML 50 ML IVPB SCH ×2 (11:29→12:30)
[2017-09-01] MEDS ORDERED: Gadodiamide 287 MG/ML VIAL (15ML) IV ONE (13:13)
--- NOTE | 2017-09-01 17:03 | CP.PCM.CON ---
History of Present Illness - History of Present Illness History of Present Illness: Chart reviewed and patient seen at bedside. Pt without complaints at this time other than mild menstrual cramping. Pt denies any abd pain at this time. Pt reports that she is thirsty and hungry. Past Patient History - Infectious Disease Hx of Infectious Diseases: None - Tetanus Immunizations Tetanus Immunization: Unknown - Past Medical History & Family History Past Medical History?: No Past Family History: Reviewed and not pertinent - Past Social History Smoking Status: Never Smoked Chewing Tobacco Use: No Cigar Use: No Alcohol: None Drugs: Denies Home Situation {Lives}: Friends Domestic Violence: Negative - CARDIAC Hx Cardiac Disorders: No - PULMONARY Hx Respiratory Disorders: No - NEUROLOGICAL Hx Neurological Disorder: No - HEENT Hx HEENT Problems: No - RENAL Hx Chronic Kidney Disease: No - ENDOCRINE/METABOLIC Hx Endocrine Disorders: No - HEMATOLOGICAL/ONCOLOGICAL Hx Blood Disorders: No - INTEGUMENTARY Hx Dermatological Problems: No - MUSCULOSKELETAL/RHEUMATOLOGICAL Hx Musculoskeletal Disorders: No Hx Falls: No - GASTROINTESTINAL Hx Gastrointestinal Disorders: No - GENITOURINARY/GYNECOLOGICAL Other/Comment: hx of miscarriage - LMP January 2014 - PSYCHIATRIC Hx Substance Use: No - SURGICAL HISTORY Hx Surgeries: No - ANESTHESIA Hx Anesthesia: Yes Hx Anesthesia Reactions: No Hx Malignant Hyperthermia: No Meds Allergies/Adverse Reactions: Allergies Allergy/AdvReac Type Severity Reaction Status Date / Time No Known Allergies Allergy Verified 05/13/14 09:58 - Medications Medications: Current Medications Acetaminophen (Tylenol 325mg Tab) 650 mg PO Q6H PRN PRN Reason: Pain, Mild (1-3) Last Admin: 09/01/17 15:44 Dose: 650 mg Acetaminophen (Tylenol 325mg Tab) 650 mg PO Q6H PRN PRN Reason: Fever >100.4 F Acetaminophen (Tylenol 650 Mg Supp) 650 mg MD Q4 PRN PRN Reason: Fever >100.4 F Last Admin: 08/31/17 00:10 Dose: 650 mg Piperacillin Sod/Tazobactam (Sod 3.375 gm/ Sodium Chloride) 100 mls @ 100 mls/ hr IVPB Q6 ALETHA PRN Reason: Protocol Last Admin: 09/01/17 16:08 Dose: 100 mls/hr Vancomycin HCl 1 gm/ Sodium (Chloride) 250 mls @ 166.667 mls/hr IVPB Q12@0500, 1700 ALETHA PRN Reason: Protocol Last Admin: 09/01/17 05:10 Dose: 166.667 mls/hr Iron Sucrose 100 mg/ Sodium (Chloride) 105 mls @ 105 mls/hr IVPB DAILY [facility] Stop: 09/06/17 09:01 Last Admin: 09/01/17 10:37 Dose: 105 mls/hr Ketorolac Tromethamine (Toradol) 30 mg IVP Q6H PRN PRN Reason: Pain, severe (8-10) Last Admin: 09/01/17 08:20 Dose: 30 mg Ondansetron HCl (Zofran Inj) 4 mg IVP Q6H PRN PRN Reason: Nausea/Vomiting Oxycodone/Acetaminophen (Percocet 5/325 Mg Tab) 1 tab PO Q4H PRN PRN Reason: Pain, moderate (4-7) Stop: 09/02/17 17:53 Last Admin: 08/31/17 20:31 Dose: 1 tab Pantoprazole Sodium (Protonix Ec Tab) 40 mg PO DAILY [facility] Last Admin: 09/01/17 08:23 Dose: 40 mg Physical Exam - Constitutional Appears: Well, No Acute Distress - ENT Exam ENT Exam: Mucous Membranes Moist - GI/Abdominal Exam Additional comments: Obese, NT, +palpable mass with distension. No rebound, no gaurding. No tenderness even with deep palpation - Extremities Exam Extremities exam: Negative for: calf tenderness Results - Vital Signs Recent Vital Signs: Last Vital Signs Temp 100.6 F H 09/01/17 15:58 Pulse 102 H 09/01/17 15:58 Resp 16 09/01/17 15:58 BP 117/73 09/01/17 15:58 Pulse Ox 94 L 09/01/17 15:58 - Labs Result Diagrams: 09/01/17 04:40 09/01/17 04:40 Labs: Laboratory Results - last 24 hr 09/01/17 09/01/17 09/01/17 04:40 04:40 10:20 WBC 14.9 H RBC 3.75 L Hgb 7.4 L Hct 24.1 L MCV 64.3 L D MCH 19.7 L MCHC 30.6 L RDW 27.4 H Plt Count 289 Sodium 133 Potassium 3.3 L Chloride 101 Carbon Dioxide 25 Anion Gap 10 BUN 9 Creatinine 0.6 L Est GFR ( Amer) > 60 Est GFR (Non-Af Amer) > 60 Random Glucose 109 H Calcium 7.3 L Blood Type O POSITIVE Antibody Screen Negative Crossmatch See Detail BBK History Checked Patient has bt - Imaging and Cardiology US - abdomen Status: Image reviewed by me, Report reviewed by me Assessment & Plan - Assessment and Plan (Free Text) Assessment: 37yo female admitted for sepsis and colitis. Anemia. Pelvic mass/cyst. Plan: With landscape supervisor, I discussed with patient the findings of pelvic CT and ultrasound. MRI done today, but results pending. I also discussed with patient these findings compared with studies done in 2014. I discussed all possible causes of this finding, including malignancy. I explained to patient that she will require surgery at some point soon for this mass/cyst. Pt does not have any pain at this time. Due to her active GI and septic symptoms, I would recommend allowing resolution of this process before surgery. Based on patient presentation, past and current films, and patient symptoms, it is unlikely that mass/cyst is causing current symptoms. I discussed this plan with patient and all patient questions answered. If possible, surgery can be scheduled as an outpatient. I answered all patient questions and informed patient's nurse that she can eat due to no immediate plan for surgery at this time. - Date & Time Date: 09/01/17 Time: 17:16
--- NOTE | 2017-09-01 18:17 | CP.PCM.PN ---
Subjective - Date & Time of Evaluation Date of Evaluation: 09/01/17 Time of Evaluation: 10:30 - Subjective Subjective: Patient seen and examined bedside. Feeling better . Denies any abdominal pain . With 1 episode of diarrhea this AM . Tmax 100.6 WBC 14.9 Bp117/73 HR 81 No acute issues overnight s/p 2 unit PRBC transfusion with HGb 7.4 today Still with menstrual cycle Objective - Vital Signs/Intake and Output Vital Signs (last 24 hours): Temp Pulse Resp BP Pulse Ox 98.8 F 102 H 16 117/73 94 L 09/01/17 18:05 09/01/17 15:58 09/01/17 15:58 09/01/17 15:58 09/01/17 15:58 - Medications Medications: Current Medications Acetaminophen (Tylenol 325mg Tab) 650 mg PO Q6H PRN PRN Reason: Pain, Mild (1-3) Last Admin: 09/01/17 15:44 Dose: 650 mg Acetaminophen (Tylenol 325mg Tab) 650 mg PO Q6H PRN PRN Reason: Fever >100.4 F Acetaminophen (Tylenol 650 Mg Supp) 650 mg [place] Q4 PRN PRN Reason: Fever >100.4 F Last Admin: 08/31/17 00:10 Dose: 650 mg Piperacillin Sod/Tazobactam (Sod 3.375 gm/ Sodium Chloride) 100 mls @ 100 mls/ hr IVPB Q6 ALETHA PRN Reason: Protocol Last Admin: 09/01/17 16:08 Dose: 100 mls/hr Vancomycin HCl 1 gm/ Sodium (Chloride) 250 mls @ 166.667 mls/hr IVPB Q12@0500, 1700 ALETHA PRN Reason: Protocol Last Admin: 09/01/17 05:10 Dose: 166.667 mls/hr Iron Sucrose 100 mg/ Sodium (Chloride) 105 mls @ 105 mls/hr IVPB DAILY [facility] Stop: 09/06/17 09:01 Last Admin: 09/01/17 10:37 Dose: 105 mls/hr Ketorolac Tromethamine (Toradol) 30 mg IVP Q6H PRN PRN Reason: Pain, severe (8-10) Last Admin: 09/01/17 08:20 Dose: 30 mg Ondansetron HCl (Zofran Inj) 4 mg IVP Q6H PRN PRN Reason: Nausea/Vomiting Oxycodone/Acetaminophen (Percocet 5/325 Mg Tab) 1 tab PO Q4H PRN PRN Reason: Pain, moderate (4-7) Stop: 09/02/17 17:53 Last Admin: 08/31/17 20:31 Dose: 1 tab Pantoprazole Sodium (Protonix Ec Tab) 40 mg PO DAILY ALETHA Last Admin: 09/01/17 08:23 Dose: 40 mg - Labs Labs: 09/01/17 04:40 09/01/17 04:40 PT 13.8 Seconds (9.8-13.1) H 08/30/17 13:00 INR 1.2 (0.9-1.2) 08/30/17 13:00 APTT 30.9 Seconds (25.6-37.1) 08/30/17 13:00 - Constitutional Appears: Non-toxic, No Acute Distress - Head Exam Head Exam: ATRAUMATIC, NORMAL INSPECTION, NORMOCEPHALIC - Eye Exam Eye Exam: EOMI, Normal appearance, PERRL Pupil Exam: NORMAL ACCOMODATION - ENT Exam ENT Exam: Mucous Membranes Moist, Normal Exam - Neck Exam Neck Exam: Full ROM, Normal Inspection - Respiratory Exam Respiratory Exam: Clear to Ausculation Bilateral, NORMAL BREATHING PATTERN. absent: Rales, Rhonchi, Wheezes, Respiratory Distress - Cardiovascular Exam Cardiovascular Exam: REGULAR RHYTHM, RRR, +S1, +S2. absent: JVD - GI/Abdominal Exam GI & Abdominal Exam: Distended, Soft, Normal Bowel Sounds. absent: Guarding, Tenderness, Rebound - Rectal Exam Rectal Exam: Deferred - Extremities Exam Extremities Exam: Full ROM, Normal Capillary Refill, Normal Inspection. absent : Pedal Edema - Back Exam Back Exam: NORMAL INSPECTION - Neurological Exam Neurological Exam: Alert, Awake, CN II-XII Intact, Oriented x3 - Psychiatric Exam Psychiatric exam: Normal Affect, Normal Mood - Skin Skin Exam: Dry, Intact, Pallor, Warm Assessment and Plan - Assessment and Plan (Free Text) Assessment: 37 y/o female with no significant PMH presented to ER complaining of 5 day history of right flank pain radiating to her RLQ associated with fever ,watery diarrhea, nausea , vomiting.Patient states that pain is dull like, improved with tylenol, denies any urinary symptoms, dysuria, frequency. She gives history of 17 years ago and complains of abdominal distention for the past 2 years. 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 In ER found to be febrile Tmax 101.3, WBC 13 lactate 2.2 Na 128 K [address] abdomen and pelvis showed :Colonic wall thickening on the right with adjacent inflammatory changes and small free fluid. The appendix is not identified. Extensive inflammatory changes which may be related to phlegmonous change/ developing abscess evident within right lower quadrant. Several foci of gas are noted in this region which are not clearly intraluminal. Appearance suspicious for loculated extra luminal gas, however free air cannot be entirely excluded. Correlate clinically for possibility of acute appendicitis/ruptured appendix. 21.3 x 26.4 cm cystic mass within the right mid pelvis of unclear etiology, possibly ovarian in origin. Hepatomegaly. Hepatic steatosis. Patchy right lower lobe atelectasis/infiltrates. Patient admitted in ICU for sepsis secondary to intra abdominal pathology. Surgery and Cartoon Artist consulted . She is started on IV vanco and zosyn for possible intra abdominal pathology . She was transfused 2 unit PRBC for anemia . At present transferred to telemetry , feeling better, pain resolved .MRI abd and plevis performed todya-- pending reading 1.Sepsis most likely secondary to intra abdominal pathology -- colitis vs abscess/ tuboovarian vs complex ovarian cyst less likely appendicitis Patient tachycardic HR 139 , Tmax 101.3 WBC 13 k lactate 2.2 on admission and was admitted to ICU initially Ct abdomen as above showed colonic wall thickening with extensive inflammatory changes ,phlegmon vs abscess , right mid pelvis cystic mass Obstructive series showed no free air on IVF, Vanco, Zosyn IV surgery and Cartoon Artist eval appreciated blood cx and urine cx with no growth so far CA125 - wnl pelvis US showed:Unremarkable uterus and right ovary. Left adnexa is not visualized likely obscured common displaced by the large pelvic mass. Cystic pelvic mass incompletely visualize confirms findings on recent CT scan. This cannot be identified as originating from either the uterus or either adnexa. MRI abdomen and pelvis performed today . Will follow up report As per Ob patient can be scheduled as outpatient for the surgery 2. 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 Hyponatremia most likely volume depleted due to diarrhea improved with IVF 4. Electrolyte abnormality - hypokalemia and hypophosphatemia Replaced 5. Azotemia- resolved Most likely prerenal given IVF 6. Abdominal distention most likely secondary to large pelvic mass Ct abdomen showed suspicious free air and fluid and hepatomegaly with steatosis Abdominal obstructive series showed no free air under the diaphragm. Patient has no peritonitis signs Continue monitoring Follow up MRI abdomen and pelvis 7. Anemia of chronic disease and iron deficiency Hgb dropped from 7.5 to 6.6 Transfused 2 unit PRBc yesterdya with Hgb7.4 today. will transfuse 1 more unit PRBC today Anemia work up showed very low iron stores . Started Venofer IV 8. DVt prophylaxis SCD hold off any anticoagulation for now
--- NOTE | 2017-09-01 19:35 | CARD ---
APPROVED REPORT EKG Measurement Heart [id number] [place] [id number] [id number] <Conclusion> Sinus tachycardia Otherwise normal ECG
[2017-09-02] MEDS: Piperacillin/Tazobact 3.375 GM in Sodium Chloride 0.9% 100 ML IVPB SCH ×3 (04:03→21:19)
[2017-09-02 05:19] LABS: HEMOGLOBIN 8.9 g/dL (12.0-16.0); MEAN CELL VOLUME 66.3 fl (81.0-99.0); MEAN CORPUSCULAR HEMOGLOBIN 20.7 pg (27.0-31.0); MEAN CORPUSCULAR HGB CONC 31.2 g/dL (33.0-37.0); RBC 4.31 Mil/uL (3.80-5.20); RED CELL DISTRIBUTION WIDTH 29.2 % (11.5-14.5); WHITE BLOOD COUNT 19.5 K/uL (4.8-10.8)
[2017-09-02 06:22] LABS: BLOOD UREA NITROGEN 3 mg/dl (7-17); CALCIUM 8.2 mg/dL (8.4-10.2); GFR AFRICAN-AMERICAN > 60; GFR NON-AFRICAN AMERICAN > 60
--- NOTE | 2017-09-02 08:48 | CP.PCM.PN ---
Subjective - Date & Time of Evaluation Date of Evaluation: 09/02/17 Time of Evaluation: 07:00 - Subjective Subjective: GENERAL SURGERY PROGRESS NOTE FOR DR. MORRISSEY Patient seen and examined at bedside. She states that she feels much better today. She denies having any abdominal pain. She is tolerating her diet and denies nausea or vomiting. She is asking when she can go home. Objective - Vital Signs/Intake and Output Vital Signs (last 24 hours): Temp Pulse Resp BP Pulse Ox 100.1 F H 92 H 20 124/77 97 09/02/17 08:00 09/02/17 08:00 09/02/17 08:00 09/02/17 08:00 09/02/17 08:00 - Medications Medications: Current Medications Acetaminophen (Tylenol 325mg Tab) 650 mg PO Q6H PRN PRN Reason: Pain, Mild (1-3) Last Admin: 09/01/17 15:44 Dose: 650 mg Acetaminophen (Tylenol 325mg Tab) 650 mg PO Q6H PRN PRN Reason: Fever >100.4 F Last Admin: 09/02/17 05:02 Dose: 650 mg Acetaminophen (Tylenol 650 Mg Supp) 650 mg [place] Q4 PRN PRN Reason: Fever >100.4 F Last Admin: 08/31/17 00:10 Dose: 650 mg Piperacillin Sod/Tazobactam (Sod 3.375 gm/ Sodium Chloride) 100 mls @ 100 mls/ hr IVPB Q6 ALETHA PRN Reason: Protocol Last Admin: 09/02/17 04:03 Dose: 100 mls/hr Vancomycin HCl 1 gm/ Sodium (Chloride) 250 mls @ 166.667 mls/hr IVPB Q12@0500, 1700 ALETHA PRN Reason: Protocol Last Admin: 09/02/17 05:03 Dose: 166.667 mls/hr Iron Sucrose 100 mg/ Sodium (Chloride) 105 mls @ 105 mls/hr IVPB DAILY [facility] Stop: 09/06/17 09:01 Last Admin: 09/01/17 10:37 Dose: 105 mls/hr Ketorolac Tromethamine (Toradol) 30 mg IVP Q6H PRN PRN Reason: Pain, severe (8-10) Last Admin: 09/01/17 08:20 Dose: 30 mg Ondansetron HCl (Zofran Inj) 4 mg IVP Q6H PRN PRN Reason: Nausea/Vomiting Oxycodone/Acetaminophen (Percocet 5/325 Mg Tab) 1 tab PO Q4H PRN PRN Reason: Pain, moderate (4-7) Stop: 09/02/17 17:53 Last Admin: 08/31/17 20:31 Dose: 1 tab Pantoprazole Sodium (Protonix Ec Tab) 40 mg PO DAILY ALETHA Last Admin: 09/01/17 08:23 Dose: 40 mg - Labs Labs: 09/02/17 04:50 09/02/17 04:50 PT 13.8 Seconds (9.8-13.1) H 08/30/17 13:00 INR 1.2 (0.9-1.2) 08/30/17 13:00 APTT 30.9 Seconds (25.6-37.1) 08/30/17 13:00 - Constitutional Appears: Non-toxic, No Acute Distress - Eye Exam Eye Exam: EOMI, Normal appearance - Respiratory Exam Respiratory Exam: NORMAL BREATHING PATTERN. absent: Respiratory Distress - Cardiovascular Exam Cardiovascular Exam: +S1, +S2 - GI/Abdominal Exam GI & Abdominal Exam: Soft, Mass (large cyst/mass palpated). absent: Distended, Guarding, Rigid, Tenderness, Rebound Additional comments: non tender on deep palpation - Neurological Exam Neurological Exam: Alert, Awake, Oriented x3 - Psychiatric Exam Psychiatric exam: Normal Affect, Normal Mood - Skin Skin Exam: Dry, Normal Color, Warm Assessment and Plan - Assessment and Plan (Free Text) Assessment: 37yo with abdominal pain and sepsis, possibly related to large known pelvic mass with resolved abdominal pain - Tmax 102, currently afebrile - Leukocytosis WBC 19.5 (was 14.9 yesterday) - Hgb improved to 8.9 after transfusion - Dr. Swift note: will need surgery soon for mass/cyst but recommends resolution of sepsis first. Possible OR as outpatient - Medical management per primary team - No general surgery intervention necessary - Discussed plan with Dr. Rahul Rock PGY-3
[2017-09-02] MEDS: Pantoprazole 40 mg EC Tab PO SCH (09:19)
--- NOTE | 2017-09-02 10:55 | CP.PCM.PN ---
Subjective - Date & Time of Evaluation Date of Evaluation: 09/02/17 Time of Evaluation: 10:55 - Subjective Subjective: pt denies pain tmax overnight 102, WBC worsening HD stable repeat BCx pt anxious to go home will monitor for fever Objective - Vital Signs/Intake and Output Vital Signs (last 24 hours): Temp Pulse Resp BP Pulse Ox 100.1 F H 92 H 20 124/77 97 09/02/17 09:28 09/02/17 08:00 09/02/17 08:00 09/02/17 08:00 09/02/17 08:00 - Medications Medications: Current Medications Acetaminophen (Tylenol 325mg Tab) 650 mg PO Q6H PRN PRN Reason: Pain, Mild (1-3) Last Admin: 09/02/17 09:28 Dose: 650 mg Acetaminophen (Tylenol 325mg Tab) 650 mg PO Q6H PRN PRN Reason: Fever >100.4 F Last Admin: 09/02/17 05:02 Dose: 650 mg Acetaminophen (Tylenol 650 Mg Supp) 650 mg [place] Q4 PRN PRN Reason: Fever >100.4 F Last Admin: 08/31/17 00:10 Dose: 650 mg Piperacillin Sod/Tazobactam (Sod 3.375 gm/ Sodium Chloride) 100 mls @ 100 mls/ hr IVPB Q6 ALETHA PRN Reason: Protocol Last Admin: 09/02/17 09:19 Dose: 100 mls/hr Vancomycin HCl 1 gm/ Sodium (Chloride) 250 mls @ 166.667 mls/hr IVPB Q12@0500, 1700 ALETHA PRN Reason: Protocol Last Admin: 09/02/17 05:03 Dose: 166.667 mls/hr Iron Sucrose 100 mg/ Sodium (Chloride) 105 mls @ 105 mls/hr IVPB DAILY [facility] Stop: 09/06/17 09:01 Last Admin: 09/01/17 10:37 Dose: 105 mls/hr Ketorolac Tromethamine (Toradol) 30 mg IVP Q6H PRN PRN Reason: Pain, severe (8-10) Last Admin: 09/01/17 08:20 Dose: 30 mg Ondansetron HCl (Zofran Inj) 4 mg IVP Q6H PRN PRN Reason: Nausea/Vomiting Oxycodone/Acetaminophen (Percocet 5/325 Mg Tab) 1 tab PO Q4H PRN PRN Reason: Pain, moderate (4-7) Stop: 09/02/17 17:53 Last Admin: 08/31/17 20:31 Dose: 1 tab Pantoprazole Sodium (Protonix Ec Tab) 40 mg PO DAILY ALETHA Last Admin: 09/02/17 09:19 Dose: 40 mg - Labs Labs: 09/02/17 04:50 09/02/17 04:50 PT 13.8 Seconds (9.8-13.1) H 08/30/17 13:00 INR 1.2 (0.9-1.2) 08/30/17 13:00 APTT 30.9 Seconds (25.6-37.1) 08/30/17 13:00 - Constitutional Appears: Non-toxic, No Acute Distress - Head Exam Head Exam: ATRAUMATIC, NORMOCEPHALIC - Eye Exam Eye Exam: EOMI, PERRL - Respiratory Exam Respiratory Exam: Clear to Ausculation Bilateral, NORMAL BREATHING PATTERN - Cardiovascular Exam Cardiovascular Exam: RRR, +S1, +S2 - GI/Abdominal Exam GI & Abdominal Exam: Soft, Normal Bowel Sounds - Extremities Exam Extremities Exam: Normal Capillary Refill. absent: Calf Tenderness - Back Exam Back Exam: absent: CVA tenderness (L), CVA tenderness (R) - Neurological Exam Neurological Exam: Alert, Awake, Oriented x3 - Psychiatric Exam Psychiatric exam: Normal Affect, Normal Mood - Skin Skin Exam: Dry, Warm Assessment and Plan - Assessment and Plan (Free Text) Plan: 37 y/o female with no significant PMH presented to ER complaining of 5 day history of right flank pain radiating to her RLQ associated with fever ,watery diarrhea, nausea , vomiting.Patient states that pain is dull like, improved with tylenol, denies any urinary symptoms, dysuria, frequency. She gives history of 17 years ago and complains of abdominal distention for the past 2 years. 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 In ER found to be febrile Tmax 101.3, WBC 13 lactate 2.2 Na 128 [address] abdomen and pelvis showed :Colonic wall thickening on the right with adjacent inflammatory changes and small free fluid. The appendix is not identified. Extensive inflammatory changes which may be related to phlegmonous change/ developing abscess evident within right lower quadrant. Several foci of gas are noted in this region which are not clearly intraluminal. Appearance suspicious for loculated extra luminal gas, however free air cannot be entirely excluded. Correlate clinically for possibility of acute appendicitis/ruptured appendix. 21.3 x 26.4 cm cystic mass within the right mid pelvis of unclear etiology, possibly ovarian in origin. Hepatomegaly. Hepatic steatosis. Patchy right lower lobe atelectasis/infiltrates. Patient admitted in ICU for sepsis secondary to intra abdominal pathology. Surgery and Whitewasher consulted . She is started on IV vanco and zosyn for possible intra abdominal pathology . She was transfused 2 unit PRBC for anemia . At present transferred to telemetry , feeling better, pain resolved .MRI abd and plevis performed -- pending reading 09/02/17 febrile overnight 102 tmax and WBC worsening. 1.Sepsis most likely secondary to intra abdominal pathology -- colitis vs abscess/ tuboovarian vs complex ovarian cyst less likely appendicitis Patient tachycardic HR 139 , Tmax 101.3 WBC 13 k lactate 2.2 on admission and was admitted to ICU initially Ct abdomen as above showed colonic wall thickening with extensive inflammatory changes ,phlegmon vs abscess , right mid pelvis cystic mass Obstructive series showed no free air on IVF, Vanco, Zosyn IV surgery and Whitewasher eval appreciated blood cx and urine cx with no growth so far CA125 - wnl pelvis US showed:Unremarkable uterus and right ovary. Left adnexa is not visualized likely obscured common displaced by the large pelvic mass. Cystic pelvic mass incompletely visualize confirms findings on recent CT scan. This cannot be identified as originating from either the uterus or either adnexa. MRI abdomen and pelvis performed today . Will follow up report As per Ob patient can be scheduled as outpatient for the surgery 2. 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 Hyponatremia most likely volume depleted due to diarrhea improved with IVF 4. Electrolyte abnormality - hypokalemia and hypophosphatemia Replaced 5. Azotemia- resolved Most likely prerenal given IVF 6. Abdominal distention most likely secondary to large pelvic mass Ct abdomen showed suspicious free air and fluid and hepatomegaly with steatosis Abdominal obstructive series showed no free air under the diaphragm. Patient has no peritonitis signs Continue monitoring Follow up MRI abdomen and pelvis 7. Anemia of chronic disease and iron deficiency Hgb dropped from 7.5 to 6.6 Transfused 2 unit PRBc yesterdya with Hgb7.4 today. will transfuse 1 more unit PRBC today Anemia work up showed very low iron stores . Started Venofer IV 8. DVt prophylaxis SCD hold off any anticoagulation for now
[2017-09-02] MEDS ORDERED: Sodium Chloride 0.9% 1,000 ML IV SCH (14:45)
--- NOTE | 2017-09-02 14:59 | MRI ---
PROCEDURE: MRI pelvis with and without contrast HISTORY: pelvic mass of unclear etiology COMPARISON: Comparison is made to the previous CT of the abdomen and pelvis with contrast dated 08/30/[address] of the abdomen and pelvis without contrast dated 04/09/2014. TECHNIQUE: Multiplanar, multi sequence MR images of the pelvis were obtained following administration of intravenous gadolinium contrast. FINDINGS: UTERUS: Myometrium: Unremarkable. Endometrium: Unremarkable. Junctional zone: No abnormal thickening to indicate adenomyosis. No myometrial cysts. Cervix: There are small cystic lesion in the cervix likely represent nabothian cyst. Vagina: Unremarkable. Fibroids: None. OVARIES/ ADNEXA: Right ovary: The right ovary is visualized measures 2.2 x 1.6 centimeter and contains small cyst likely represent normal follicles. Left ovary: The left ovary is not well visualized. Fallopian tubes: Not visualized. No evidence of hydrosalpinx. Again seen is large hyperintense T2 and hypo intense T1 cystic lesion extending from the pelvis to upper abdomen measures 23 centimeter in the largest transverse diameter and 10.3 centimeter in the largest AP diameter these cystic lesion may arise from the left ovary. No evidence of thick enhancing septation in this cystic lesion. No evidence of solid enhancing component. BOWEL: Partially visualized rectosigmoid colon is grossly unremarkable. The small and large bowel are displaced by the above-mentioned large cystic lesion. LYMPH NODES: No lymphadenopathy. BLADDER: The urinary bladder is not distended and displaced inferiorly by the large cystic mass. FREE FLUID: None. PELVIC BONES: Grossly unremarkable. OTHER FINDINGS: None. IMPRESSION: Re- demonstration of large cystic mass lesion extending from the pelvis to the upper abdomen noted anterior to the uterus. 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 No evidence of thick septation or enhancing solid component in this cystic lesion. The uterus and the urinary bladder are displaced inferiorly. The right ovary is grossly unremarkable.
--- NOTE | 2017-09-02 17:03 | MRI ---
PROCEDURE: MRI Abdomen with and without contrast HISTORY: History of large cystic mass lesion extending from the pelvis to the upper abdomen COMPARISON: Comparison is made to the previous CT of the abdomen and pelvis with contrast dated 08/30/2017. TECHNIQUE: Multisequence, multiplanar MR images of the abdomen with and without gadolinium contrast enhancement. FINDINGS: LIVER: No evidence of mass lesion in the liver. The liver enhance homogeneously. GALLBLADDER: Unremarkable. SPLEEN: Unremarkable. PANCREAS: Unremarkable. ADRENALS: Unremarkable. KIDNEYS: Unremarkable. AORTA: No aneurysm. ASCITES: No evidence of significant free fluid in the abdomen. PERITONEUM: There are inflammatory changes and fat heterogeneous stranding and enhancement noted at the right mid abdomen adjacent to the cecum and in the right mid abdomen adjacent to the inferior border of the liver. There are with defined hypointense T2 and hyperintense T1 signal lesion at the right mid to lower abdomen seen adjacent to the inferior border of the liver. The largest lesion measures 2.8 centimeter in the transverse diameter and 3.5 centimeter in the AP diameter. There is suspicious for mild omental caking at the mid and anterior aspect of the upper abdomen. The possibility of malignant implants should be excluded. The differential diagnosis includes abscess formation due to rupture appendicitis. LYMPH NODES: . Mildly enlarged mesenteric lymph nodes seen at the right mid abdomen. OTHER FINDINGS: Re- demonstrated of large cystic mass lesion extending from the pelvis to the upper abdomen. IMPRESSION: Well defined thin wall cystic lesions/ cystic implant noted at the right mid abdomen adjacent to the inferior border of the liver of uncertain etiology. Differential consideration includes mesenteric implants from malignant neoplasm such as ovarian cancer. Inflammatory changes and heterogeneous enhancement noted in the right mid abdomen adjacent to the cecum of uncertain etiology. Correlate clinically for possible appendicitis or omental caking. Suspicious for mild omental thickening and enhancement at the mid and anterior aspect of the abdomen. The possibility of malignant neoplasm should be excluded. Re- demonstration of large cystic lesion extending from the pelvis.
[2017-09-03] MEDS: Piperacillin/Tazobact 3.375 GM in Sodium Chloride 0.9% 100 ML IVPB SCH ×5 (03:40→21:42)
--- NOTE | 2017-09-03 05:02 | CP.PCM.PN ---
Subjective - Date & Time of Evaluation Date of Evaluation: 09/03/17 Time of Evaluation: 05:00 - Subjective Subjective: General Surgery Note for Dr. Kay This patient was seen and examined this AM at bedside no acute events overnight. Afebrile last night. She denies abdominal pain, chest pain, SOB nausea vomiting or diarrhea. She is tolerating diet, requests to be discharged. Objective - Vital Signs/Intake and Output Vital Signs (last 24 hours): Temp Pulse Resp BP Pulse Ox 98.9 F 107 H 18 143/86 95 09/03/17 00:43 09/03/17 00:43 09/03/17 00:43 09/03/17 00:43 09/03/17 00:43 Intake and Output: 09/02/17 09/03/17 18:59 06:59 Intake Total 1700 Balance 1700 - Medications Medications: Current Medications Acetaminophen (Tylenol 325mg Tab) 650 mg PO Q6H PRN PRN Reason: Pain, Mild (1-3) Last Admin: 09/03/17 04:56 Dose: 650 mg Acetaminophen (Tylenol 325mg Tab) 650 mg PO Q6H PRN PRN Reason: Fever >100.4 F Last Admin: 09/02/17 05:02 Dose: 650 mg Acetaminophen (Tylenol 650 Mg Supp) 650 mg [place] Q4 PRN PRN Reason: Fever >100.4 F Last Admin: 08/31/17 00:10 Dose: 650 mg Piperacillin Sod/Tazobactam (Sod 3.375 gm/ Sodium Chloride) 100 mls @ 100 mls/ hr IVPB Q6 ALETHA PRN Reason: Protocol Last Admin: 09/03/17 03:40 Dose: 100 mls/hr Vancomycin HCl 1 gm/ Sodium (Chloride) 250 mls @ 166.667 mls/hr IVPB Q12@0500, 1700 ALETHA PRN Reason: Protocol Last Admin: 09/03/17 04:38 Dose: 166.667 mls/hr Iron Sucrose 100 mg/ Sodium (Chloride) 105 mls @ 105 mls/hr IVPB DAILY ALETHA Stop: 09/06/17 09:01 Last Admin: 09/02/17 12:02 Dose: 105 mls/hr Sodium Chloride (Sodium Chloride 0.9%) 1,000 mls @ 1,000 mls/hr IV .Q1H ALETHA Stop: 09/03/17 14:42 Ketorolac Tromethamine (Toradol) 30 mg IVP Q6H PRN PRN Reason: Pain, severe (8-10) Last Admin: 09/01/17 08:20 Dose: 30 mg Ondansetron HCl (Zofran Inj) 4 mg IVP Q6H PRN PRN Reason: Nausea/Vomiting Pantoprazole Sodium (Protonix Ec Tab) 40 mg PO DAILY ALETHA Last Admin: 09/02/17 09:19 Dose: 40 mg - Labs Labs: 09/02/17 04:50 09/02/17 04:50 PT 13.8 Seconds (9.8-13.1) H 08/30/17 13:00 INR 1.2 (0.9-1.2) 08/30/17 13:00 APTT 30.9 Seconds (25.6-37.1) 08/30/17 13:00 - Constitutional Appears: Non-toxic, No Acute Distress - Head Exam Head Exam: ATRAUMATIC, NORMOCEPHALIC - Eye Exam Eye Exam: EOMI - ENT Exam ENT Exam: Mucous Membranes Moist - Respiratory Exam Respiratory Exam: NORMAL BREATHING PATTERN - Cardiovascular Exam Cardiovascular Exam: REGULAR RHYTHM - GI/Abdominal Exam GI & Abdominal Exam: Soft. 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
[2017-09-03 06:35] LABS: BASO # 0.1 K/uL (0.0-0.2); BASO % 0.3 % (0.0-2.0); EOS % 0.1 % (0.0-4.0); HEMOGLOBIN 8.5 g/dL (12.0-16.0); LYMPH # 1.8 K/uL (1.0-4.3); LYMPH % 9.2 % (20.0-40.0); MEAN CELL VOLUME 66.4 fl (81.0-99.0); MEAN CORPUSCULAR HEMOGLOBIN 21.1 pg (27.0-31.0); MEAN CORPUSCULAR HGB CONC 31.8 g/dL (33.0-37.0); MEAN PLATELET VOLUME 7.1 fl (7.2-11.7); MONO # 1.7 K/uL (0.0-0.8); MONO % 8.4 % (0.0-10.0); NEUT # 16.6 K/uL (1.8-7.0); PLATELET COUNT 449 K/uL (130-400); RBC 4.04 Mil/uL (3.80-5.20); RED CELL DISTRIBUTION WIDTH 29.6 % (11.5-14.5); WHITE BLOOD COUNT 20.2 K/uL (4.8-10.8)
[2017-09-03 07:00] LABS: ALB/GLOB RATIO 0.9 (1.0-2.1); ALT/SGPT 47 U/L (9-52); AST/SGOT 47 U/L (14-36); BLOOD UREA NITROGEN 3 mg/dl (7-17); CALCIUM 7.9 mg/dL (8.4-10.2); GFR AFRICAN-AMERICAN > 60; GFR NON-AFRICAN AMERICAN > 60
[2017-09-03] MEDS: Pantoprazole 40 mg EC Tab PO SCH (09:27)
[2017-09-03] MEDS ORDERED: Potassium Chloride 20 mEq ER Tab PO ONE (09:31)
--- NOTE | 2017-09-03 11:37 | CP.PCM.PN ---
Subjective - Date & Time of Evaluation Date of Evaluation: 09/03/17 Time of Evaluation: 10:45 - Subjective Subjective: Febrile denies abd pain at present Had one soft BM no N/V denies CP no SOB Objective - Vital Signs/Intake and Output Vital Signs (last 24 hours): Temp Pulse Resp BP Pulse Ox 98.8 F 95 H 14 114/74 96 09/03/17 08:01 09/03/17 08:01 09/03/17 08:01 09/03/17 08:01 09/03/17 08:01 - Medications Medications: Current Medications Acetaminophen (Tylenol 325mg Tab) 650 mg PO Q6H PRN PRN Reason: Pain, Mild (1-3) Last Admin: 09/02/17 16:41 Dose: 650 mg Acetaminophen (Tylenol 325mg Tab) 650 mg PO Q6H PRN PRN Reason: Fever >100.4 F Last Admin: 09/03/17 04:56 Dose: 650 mg Acetaminophen (Tylenol 650 Mg Supp) 650 mg [place] Q4 PRN PRN Reason: Fever >100.4 F Last Admin: 08/31/17 00:10 Dose: 650 mg Piperacillin Sod/Tazobactam (Sod 3.375 gm/ Sodium Chloride) 100 mls @ 100 mls/ hr IVPB Q6 ALETHA PRN Reason: Protocol Last Admin: 09/03/17 09:28 Dose: 100 mls/hr Vancomycin HCl 1 gm/ Sodium (Chloride) 250 mls @ 166.667 mls/hr IVPB Q12@0500, 1700 ALETHA PRN Reason: Protocol Last Admin: 09/03/17 04:38 Dose: 166.667 mls/hr Iron Sucrose 100 mg/ Sodium (Chloride) 105 mls @ 105 mls/hr IVPB DAILY [facility] Stop: 09/06/17 09:01 Last Admin: 09/02/17 12:02 Dose: 105 mls/hr Sodium Chloride (Sodium Chloride 0.9%) 1,000 mls @ 1,000 mls/hr IV .Q1H ALETHA Stop: 09/03/17 14:42 Ketorolac Tromethamine (Toradol) 30 mg IVP Q6H PRN PRN Reason: Pain, severe (8-10) Last Admin: 09/01/17 08:20 Dose: 30 mg Ondansetron HCl (Zofran Inj) 4 mg IVP Q6H PRN PRN Reason: Nausea/Vomiting Pantoprazole Sodium (Protonix Ec Tab) 40 mg PO DAILY ALETHA Last Admin: 09/03/17 09:27 Dose: 40 mg - Labs Labs: 09/03/17 05:45 09/03/17 05:45 PT 13.8 Seconds (9.8-13.1) H 08/30/17 13:00 INR 1.2 (0.9-1.2) 08/30/17 13:00 APTT 30.9 Seconds (25.6-37.1) 08/30/17 13:00 - Constitutional Appears: No Acute Distress - Head Exam Head Exam: NORMAL INSPECTION, NORMOCEPHALIC - Eye Exam Eye Exam: EOMI, Normal appearance, PERRL Pupil Exam: NORMAL ACCOMODATION - ENT Exam ENT Exam: Mucous Membranes Moist, Normal External Ear Exam - Neck Exam Neck Exam: Full ROM. absent: Meningismus - Respiratory Exam Respiratory Exam: NORMAL BREATHING PATTERN. absent: Respiratory Distress - Cardiovascular Exam Cardiovascular Exam: Clicks, +S1, +S2 - GI/Abdominal Exam GI & Abdominal Exam: Distended, Normal Bowel Sounds. absent: Guarding, Tenderness - Extremities Exam Extremities Exam: Full ROM, Normal Capillary Refill. absent: Calf Tenderness - Back Exam Back Exam: Full ROM. absent: CVA tenderness (L), CVA tenderness (R) - Neurological Exam Neurological Exam: Alert, Awake, CN II-XII Intact, Normal Gait, Oriented x3 Neuro motor strength exam: Left Upper Extremity: 5, Right Upper Extremity: 5, Left Lower Extremity: 5, Right Lower Extremity: 5 - Psychiatric Exam Psychiatric exam: Normal Affect, Normal Mood - Skin Skin Exam: Dry, Normal Color, Warm Assessment and Plan - Assessment and Plan (Free Text) Assessment: 37 y/o female with no significant PMH presented to ER complaining of 5 day history of right flank pain radiating to her RLQ associated with fever ,watery diarrhea, nausea , vomiting. Patient states that pain is dull like, improved with tylenol, denies any urinary symptoms, dysuria, frequency. She gives history of 17 years ago and complains of abdominal distention for the past 2 years. 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 In ER found to be febrile Tmax 101.3, WBC 13 lactate 2.2 Na 128 K [address] abdomen and pelvis showed :Colonic wall thickening on the right with adjacent inflammatory changes and small free fluid. The appendix is not identified. Extensive inflammatory changes which may be related to phlegmonous change/ developing abscess evident within right lower quadrant. Several foci of gas are noted in this region which are not clearly intraluminal. Appearance suspicious for loculated extra luminal gas, however free air cannot be entirely excluded. Correlate clinically for possibility of acute appendicitis/ruptured appendix. 21.3 x 26.4 cm cystic mass within the right mid pelvis of unclear etiology, possibly ovarian in origin. Hepatomegaly. Hepatic steatosis. Patchy right lower lobe atelectasis/infiltrates. Patient admitted in ICU for sepsis secondary to intra abdominal pathology. Surgery and Hr Associate consulted . She was started on IV vanco and zosyn for possible intra abdominal pathology . She was transfused 2 unit PRBC for anemia . At present transferred to telemetry , feeling better, pain resolved . Pelvis US showed:Unremarkable uterus and right ovary. Left adnexa is not visualized likely obscured common displaced by the large pelvic mass. Cystic pelvic mass incompletely visualize confirms findings on recent CT scan. This cannot be identified as originating from either the uterus or either adnexa. MRI abd and pelvis: Re- demonstration of large cystic mass lesion extending from the pelvis to the upper abdomen noted anterior to the uterus. 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 No evidence of thick septation or enhancing solid component in this cystic lesion. The uterus and the urinary bladder are displaced inferiorly. The right ovary is grossly unremarkable. Well defined thin wall cystic lesions/ cystic implant noted at the right mid abdomen adjacent to the inferior border of the liver of uncertain etiology. Differential consideration includes mesenteric implants from malignant neoplasm such as ovarian cancer. Inflammatory changes and heterogeneous enhancement noted in the right mid abdomen adjacent to the cecum of uncertain etiology. Correlate clinically for possible appendicitis or omental caking. Suspicious for mild omental thickening and enhancement at the mid and anterior aspect of the abdomen. The possibility of malignant neoplasm should be excluded. Re- demonstration of large cystic lesion extending from the pelvis. 1.Sepsis most likely secondary to intra abdominal pathology -- colitis vs abscess/ tuboovarian vs complex ovarian cyst less likely appendicitis Patient tachycardic HR 139 , Tmax 101.3 WBC 13 k lactate 2.2 on admission and was admitted to ICU initially Ct abdomen as above showed colonic wall thickening with extensive inflammatory changes ,phlegmon vs abscess , right mid pelvis cystic mass Obstructive series showed no free air on IVF Vanco, Zosyn IV Surgery and Hr Associate consulted blood cx and urine cx with no growth so far Persitently febrile, leukocytosis trending up elevated Procalcitonin ID consult- Dr Jackson CA125 - wnl 2. 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 Hyponatremia most likely volume depleted due to diarrhea improved with IVF 4. Electrolyte abnormality - hypokalemia and hypophosphatemia Replaced 5. Azotemia- resolved Most likely prerenal given IVF 6. Abdominal distention most likely secondary to large pelvic mass Ct abdomen showed suspicious free air and fluid and hepatomegaly with steatosis Abdominal obstructive series showed no free air under the diaphragm. Patient has no peritonitis signs Continue monitoring 7. Anemia of chronic disease and iron deficiency Hgb dropped from 7.5 to 6.6 Transfused 3 unit PRBc Anemia work up showed very low iron stores . Started Venofer IV 8. DVt prophylaxis SCD hold off any anticoagulation for now
[2017-09-03 11:40] LABS: ANISOCYTOSIS MARKED; BANDS 2 % (0-2); HYPOCHROMIC SLIGHT; LYMPHOCYTE 10 % (20-50); METAMYELOCYTE 3 % (0-0); MONOCYTE 9 % (0-10); MYELOCYTE 1 % (0-0); NEUTROPHIL 75 % (42-75); PLATELET ESTIMATE NORMAL (NORMAL); POIKILOCYTOSIS MODERATE; TOTAL CELLS COUNTED 100
[2017-09-03 11:41] LABS: LARGE PLATELETS PRESENT; MICROCYTOSIS MODERATE; OVALOCYTES SLIGHT
[2017-09-03 11:43] LABS: TEARDROP CELLS SLIGHT
[2017-09-04] MEDS: Piperacillin/Tazobact 3.375 GM in Sodium Chloride 0.9% 100 ML IVPB SCH ×4 (04:31→21:26)
[2017-09-04 07:19] LABS: BASO # 0.1 K/uL (0.0-0.2); BASO % 0.4 % (0.0-2.0); EOS # 0.1 K/uL (0.0-0.7); EOS % 0.4 % (0.0-4.0); HEMOGLOBIN 8.9 g/dL (12.0-16.0); LYMPH % 10.8 % (20.0-40.0); MEAN CELL VOLUME 67.3 fl (81.0-99.0); MEAN CORPUSCULAR HEMOGLOBIN 20.7 pg (27.0-31.0); MEAN CORPUSCULAR HGB CONC 30.7 g/dL (33.0-37.0); MONO # 1.4 K/uL (0.0-0.8); MONO % 7.5 % (0.0-10.0); NEUT # 15.1 K/uL (1.8-7.0); NEUT % 80.9 % (50.0-75.0); RBC 4.32 Mil/uL (3.80-5.20); WHITE BLOOD COUNT 18.7 K/uL (4.8-10.8)
[2017-09-04 07:35] LABS: ALBUMIN 3.1 g/dL (3.5-5.0); ALT/SGPT 46 U/L (9-52); AST/SGOT 48 U/L (14-36); BLOOD UREA NITROGEN 3 mg/dl (7-17); CALCIUM 8.3 mg/dL (8.4-10.2); GFR AFRICAN-AMERICAN > 60; GFR NON-AFRICAN AMERICAN > 60
[2017-09-04 07:41] LABS: ALB/GLOB RATIO 0.8 (1.0-2.1)
[2017-09-04] MEDS: Pantoprazole 40 mg EC Tab PO SCH (10:56)
--- NOTE | 2017-09-04 12:18 | CP.PCM.PN ---
Subjective - Date & Time of Evaluation Date of Evaluation: 09/04/17 Time of Evaluation: 12:00 - Subjective Subjective: Pt seen and examined at bedside laying L lateral position. She denies significant overnight events including abdominal pain. She shares of vaginal bleed due to being in the middle of her menstrual cycle. She has experienced multiple bowel movements, she shares as diarrhea. Denies: N/V/CP/SOB/dizziness. She shares of her desire to go home b/c she has to take care of her son and to work. General: pleasant, in no acute distress HEENT: normocephalic, PERRLA; AAOx3 Heart: no murmurs, regular rate and rhythm, S1, S2 normal. Lungs: clear to auscultation bilaterally, no wheezing Abdomen: distended, nontender CVA: negative Lower extremities: negative for pitting edema Ms. Garibay is a pleasant 37 yo lady who presented with sepsis and R abdominal pain. Current plan is for OP resection of pelvic mass (complex ovarian cyst) with gyne-onc. Case dw Dr. Jamison Storm MD PGY1 Objective - Vital Signs/Intake and Output Vital Signs (last 24 hours): Temp Pulse Resp BP Pulse Ox 98.4 F 98 H 20 122/81 96 09/04/17 08:18 09/04/17 09:00 09/04/17 08:18 09/04/17 08:18 09/04/17 08:18 Intake and Output: 09/04/17 09/04/17 06:59 18:59 Intake Total 700 Balance 700 - Medications Medications: Current Medications Acetaminophen (Tylenol 325mg Tab) 650 mg PO Q6H PRN PRN Reason: Pain, Mild (1-3) Last Admin: 09/02/17 16:41 Dose: 650 mg Acetaminophen (Tylenol 325mg Tab) 650 mg PO Q6H PRN PRN Reason: Fever >100.4 F Last Admin: 09/03/17 12:43 Dose: 650 mg Acetaminophen (Tylenol 650 Mg Supp) 650 mg [place] Q4 PRN PRN Reason: Fever >100.4 F Last Admin: 08/31/17 00:10 Dose: 650 mg Piperacillin Sod/Tazobactam (Sod 3.375 gm/ Sodium Chloride) 100 mls @ 100 mls/ hr IVPB Q6 ALETHA PRN Reason: Protocol Last Admin: 09/04/17 10:55 Dose: 100 mls/hr Vancomycin HCl 1 gm/ Sodium (Chloride) 250 mls @ 166.667 mls/hr IVPB Q12@0500, 1700 ALETHA PRN Reason: Protocol Last Admin: 09/04/17 04:30 Dose: 166.667 mls/hr Iron Sucrose 100 mg/ Sodium (Chloride) 105 mls @ 105 mls/hr IVPB DAILY [facility] Stop: 09/06/17 09:01 Last Admin: 09/04/17 10:55 Dose: 105 mls/hr Ondansetron HCl (Zofran Inj) 4 mg IVP Q6H PRN PRN Reason: Nausea/Vomiting Pantoprazole Sodium (Protonix Ec Tab) 40 mg PO DAILY [facility] Last Admin: 09/04/17 10:56 Dose: 40 mg - Labs Labs: 09/04/17 07:08 09/04/17 07:08 PT 13.8 Seconds (9.8-13.1) H 08/30/17 13:00 INR 1.2 (0.9-1.2) 08/30/17 13:00 APTT 30.9 Seconds (25.6-37.1) 08/30/17 13:00
--- NOTE | 2017-09-04 12:44 | CP.PCM.CON ---
History of Present Illness - History of Present Illness History of Present Illness: 37F w/PMH sig for pelvic mass consulted for abdominal pain x past 5 days. Pain is both RUQ and RLQ, dull, non radiating, constant. Admits to fevers (treated with Tylenol), emesis x 1 (nb, bilious), nausea, poor appetite, last BM 08/28 ( diarrhea). Denies dysuria, urinary frequency, chest pain, dizziness, SOB, other complaints. EMR review positive for Large cystic pelvic mass, dx in 2013, possibly of R ovary without known follow up. CT abdomen on this visit positive for "Colonic wall thickening on R w/adjacent inflammatory changes and small free fluid. Appendix is not identified. Extensive inflammatory changes, maybe phlegmonous change/ developing abscess evident w/in RLQ. Several foci of gas in region, not clearly intraluminal. Suspicious for loculated extra luminal gas, however free air cannot be entirely excluded. Correlate clinically for possibility of acute appendicitis/ruptured appendix. 21.3 x 26.4 cm cystic mass within the right mid pelvis of unclear etiology, possibly ovarian in origin. Hepatomegaly. Hepatic steatosis. Patchy right lower lobe atelectasis/infiltrates. " Leukocytosis noted at 13.2 with left shift, lactic acid 1.1 from 2.2 after fluid resuscitation. Obstructive series w/"No evidence of mechanical bowel obstruction, free air. Right lower lobe atelectasis." PMH: Pelvic mass (dx 2013) PSH: (1999) All: NDKA SH: Denies ETOH, tobacco, or illicit drug use LMP: 08/28 Review of Systems - Review of Systems All systems: reviewed and no additional remarkable complaints except - Constitutional Constitutional: As Per HPI - EENT Eyes: absent: As Per HPI, Blind Spots, Blurred Vision, Change in Vision, Decreased Night Vision, Diplopia, Discharge, Dry Eye, Exophthalmos, Floaters, Irritation, Itchy Eyes, Loss of Peripheral Vision, Pain, Photophobia, Requires Corrective Lenses, Sees Flashes, Spots in Vision, Tunnel Vision, Other Visual Disturbances, Loss of Vision, Other Ears: absent: As Per HPI, Decreased Hearing, Ear Discharge, Ear Pain, Tinnitus, Abnormal Hearing, Disequilibrium, Dizziness, Other Nose/Mouth/Throat: absent: As Per HPI, Epistaxis, Nasal Congestion, Nasal Discharge, Nasal Obstruction, Nasal Trauma, Nose Pain, Post Nasal Drip, Sinus Pain, Sinus Pressure, Bleeding Gums, Change in Voice, Dental Pain, Dry Mouth, Dysphagia, Halitosis, Hoarsness, Lip Swelling, Mouth Lesions, Mouth Pain, Odynophagia, Sore Throat, Throat Swelling, Tongue Swelling, Facial Pain, Neck Pain, Neck Mass, Other - Breasts Breasts: absent: As Per HPI, Change in Shape, Mass, Pain, Nipple Discharge, Nipple Inversion, Skin Changes, Swelling, Other - Cardiovascular Cardiovascular: absent: As Per HPI, Acrocyanosis, Chest Pain, Chest Pain at Rest , Chest Pain with Activity, Claudication, Diaphoresis, Dyspnea, Dyspnea on Exertion, Edema, Irregular Heart Rhythm, Pain Radiating to Arm/Neck/Jaw, Leg Edema, Leg Ulcers, Lightheadedness, Orthopnea, Palpitations, Paroxysmal Nocturnal Dyspnea, Pedal Edema, Radiating Pain, Rapid Heart Rate, Slow Heart Rate, Syncope, Other - Respiratory Respiratory: absent: As Per HPI, Cough, Dyspnea, Hemoptysis, Dyspnea on Exertion , Wheezing, Snoring, Stridor, Pain on Inspiration, Chest Congestion, Excessive Mucous Production, Change in Mucous Color, Pain with Coughing, Other - Gastrointestinal Gastrointestinal: As Per HPI - Genitourinary Genitourinary: As Per HPI - Reproductive: Female Reproductive:Female: As Per HPI - Menstruation Menstruation: As Per HPI - Integumentary Integumentary: absent: As Per HPI, Acne, Alopecia, Bleeding Lesions, Change in Hair, Change in Nails, Change in Pigmentation, Changing Lesions, Dry Skin, Erythema, Furuncle, Hirsutism, Lesions, New Lesions, Non-Healing Lesions, Photosensitivity, Pruritus, Rash, Skin Pain, Skin Ulcer, Sores, Striae, Swelling , Unusual Bruising, Wounds, Jaundice, Other - Neurological Neurological: absent: As Per HPI, Abnormal Gait, Abnormal Hearing, Abnormal Movements, Abnormal Speech, Behavioral Changes, Burning Sensations, Confusion, Convulsions, Disequilibrium, Dizziness, Numbness, Focal Weakness, Frequent Falls , Headaches, Lack of Coordination, Loss of Vision, Memory Loss, Paresthesias, Radicular Pain, Restless Legs, Sensory Deficit, Syncope, Tingling, Tremor, Vertigo, Weakness, Other Visual Disturbances, Other - Psychiatric Psychiatric: absent: As Per HPI, Abnormal Sleep Pattern, Anhedonia, Anxiety, Auditory Hallucinations, Behavioral Changes, Change in Appetite, Change in Libido, Confusion, Depression, Difficulty Concentrating, Hallucinations, Homicidal Ideation, Hopelessness, Irritability, Memory Loss, Mood Swings, Panic Attacks, Paranoia, Suicidal Ideation, Visual Hallucinations, Tactile Hallucinations, Other - Endocrine Endocrine: absent: As Per HPI, Change in Body Appearance, Change in Libido, Cold Intolorance, Deepening of Voice, Excessive Sweating, Fatigue, Flushing, Heat Intolorance, Increase in Ring/Shoe/Hat Size, Palpitations, Polydipsia, Polyphagia, Polyuria, Other - Hematologic/Lymphatic Hematologic: absent: As Per HPI, Easy Bleeding, Easy Bruising, Lymphadenopathy, Other Past Patient History - Infectious Disease Hx of Infectious Diseases: None - Tetanus Immunizations Tetanus Immunization: Unknown - Past Medical History & Family History Past Medical History?: No Past Family History: Reviewed and not pertinent - Past Social History Smoking Status: Never Smoked Chewing Tobacco Use: No Cigar Use: No Alcohol: None Drugs: Denies Home Situation {Lives}: Friends Domestic Violence: Negative - CARDIAC Hx Cardiac Disorders: No - PULMONARY Hx Respiratory Disorders: No - NEUROLOGICAL Hx Neurological Disorder: No - HEENT Hx HEENT Problems: No - RENAL Hx Chronic Kidney Disease: No - ENDOCRINE/METABOLIC Hx Endocrine Disorders: No - HEMATOLOGICAL/ONCOLOGICAL Hx Blood Disorders: No - INTEGUMENTARY Hx Dermatological Problems: No - MUSCULOSKELETAL/RHEUMATOLOGICAL Hx Musculoskeletal Disorders: No Hx Falls: No - GASTROINTESTINAL Hx Gastrointestinal Disorders: No - GENITOURINARY/GYNECOLOGICAL Other/Comment: hx of miscarriage - LMP January 2014 - PSYCHIATRIC Hx Substance Use: No - SURGICAL HISTORY Hx Surgeries: No - ANESTHESIA Hx Anesthesia: Yes Hx Anesthesia Reactions: No Hx Malignant Hyperthermia: No Meds Allergies/Adverse Reactions: Allergies Allergy/AdvReac Type Severity Reaction Status Date / Time No Known Allergies Allergy Verified 05/13/14 09:58 - Medications Medications: Current Medications Acetaminophen (Tylenol 325mg Tab) 650 mg PO Q6H PRN PRN Reason: Pain, Mild (1-3) Last Admin: 09/02/17 16:41 Dose: 650 mg Acetaminophen (Tylenol 325mg Tab) 650 mg PO Q6H PRN PRN Reason: Fever >100.4 F Last Admin: 09/03/17 12:43 Dose: 650 mg Acetaminophen (Tylenol 650 Mg Supp) 650 mg [place] Q4 PRN PRN Reason: Fever >100.4 F Last Admin: 08/31/17 00:10 Dose: 650 mg Piperacillin Sod/Tazobactam (Sod 3.375 gm/ Sodium Chloride) 100 mls @ 100 mls/ hr IVPB Q6 ALETHA PRN Reason: Protocol Last Admin: 09/04/17 10:55 Dose: 100 mls/hr Vancomycin HCl 1 gm/ Sodium (Chloride) 250 mls @ 166.667 mls/hr IVPB Q12@0500, 1700 ALETHA PRN Reason: Protocol Last Admin: 09/04/17 04:30 Dose: 166.667 mls/hr Iron Sucrose 100 mg/ Sodium (Chloride) 105 mls @ 105 mls/hr IVPB DAILY [facility] Stop: 09/06/17 09:01 Last Admin: 09/04/17 10:55 Dose: 105 mls/hr Ondansetron HCl (Zofran Inj) 4 mg IVP Q6H PRN PRN Reason: Nausea/Vomiting Pantoprazole Sodium (Protonix Ec Tab) 40 mg PO DAILY [facility] Last Admin: 09/04/17 10:56 Dose: 40 mg Physical Exam - Constitutional Appears: Non-toxic, Chronically Ill - Head Exam Head Exam: NORMOCEPHALIC - Eye Exam Eye Exam: absent: Scleral icterus - ENT Exam ENT Exam: Mucous Membranes Dry, Normal External Ear Exam - Neck Exam Neck exam: Negative for: Lymphadenopathy - Respiratory Exam Respiratory Exam: Decreased Breath Sounds, Clear to Auscultation Bilateral - Cardiovascular Exam Cardiovascular Exam: REGULAR RHYTHM, +S1, +S2 - GI/Abdominal Exam GI & Abdominal Exam: Diminished Bowel Sounds, Distended, Guarding, Mass. absent : Rebound, Rigid - Rectal Exam Rectal Exam: Deferred - Exam Exam: NORMAL INSPECTION - Extremities Exam Extremities exam: Negative for: calf tenderness, pedal edema - Back Exam Back exam: absent: CVA tenderness (L), CVA tenderness (R), paraspinal tenderness - Neurological Exam Neurological exam: Alert, CN II-XII Intact, Oriented x3, Reflexes Normal - Psychiatric Exam Psychiatric exam: Depressed - Skin Skin Exam: Dry Results - Vital Signs Recent Vital Signs: Last Vital Signs Temp 98.4 F 09/04/17 08:18 Pulse 98 H 09/04/17 09:00 Resp 20 09/04/17 08:18 BP 122/81 09/04/17 08:18 Pulse Ox 96 09/04/17 08:18 - Labs Result Diagrams: 09/04/17 07:08 09/04/17 07:08 Labs: Laboratory Results - last 24 hr 09/03/17 09/04/17 09/04/17 09:59 07:08 07:08 WBC 18.7 H RBC 4.32 Hgb 8.9 L Hct 29.1 L MCV 67.3 L MCH 20.7 L MCHC 30.7 L RDW 30.0 H Plt Count 510 H MPV 7.0 L Neut % (Auto) 80.9 H Lymph % (Auto) 10.8 L Wake % (Auto) 7.5 Eos % (Auto) 0.4 Baso % (Auto) 0.4 Neut # 15.1 H Lymph # 2.0 Wake # 1.4 H Eos # 0.1 Baso # 0.1 Sodium 136 Potassium 3.6 Chloride 100 Carbon Dioxide 27 Anion Gap 13 BUN 3 L Creatinine 0.6 L Est GFR ( Amer) > 60 Est GFR (Non-Af Amer) > 60 Random Glucose 105 Calcium 8.3 L Total Bilirubin 0.5 AST 48 H ALT 46 Alkaline Phosphatase 216 H Total Protein 6.9 Albumin 3.1 L Globulin 3.8 Albumin/Globulin Ratio 0.8 L Procalcitonin 3.06 H Assessment & Plan (1) Ovarian mass Status: Acute - Assessment and Plan (Free Text) Assessment: large pelvic mass- possibly malignant cannot r/o genitourinary TB in differential on iv antibiotics- cultures so far negative needs diagnostic procedure consider IR bx/ cultures consider transfer to tertiary care facility with [facility] oncology service once stable agree with IV antibiotics prognosis guarded
--- NOTE | 2017-09-04 13:16 | CP.PCM.PN ---
Subjective - Date & Time of Evaluation Date of Evaluation: 09/04/17 Time of Evaluation: 10:30 - Subjective Subjective: No fever this am, febrile yesterday leukocytosis denies pain had diarrhea last night, nonbloody no N/V no CP no SOB Objective - Vital Signs/Intake and Output Vital Signs (last 24 hours): Temp Pulse Resp BP Pulse Ox 98.3 F 100 H 18 113/74 96 09/04/17 12:00 09/04/17 12:00 09/04/17 12:00 09/04/17 12:00 09/04/17 12:00 Intake and Output: 09/04/17 09/04/17 06:59 18:59 Intake Total 700 Balance 700 - Medications Medications: Current Medications Acetaminophen (Tylenol 325mg Tab) 650 mg PO Q6H PRN PRN Reason: Pain, Mild (1-3) Last Admin: 09/02/17 16:41 Dose: 650 mg Acetaminophen (Tylenol 325mg Tab) 650 mg PO Q6H PRN PRN Reason: Fever >100.4 F Last Admin: 09/03/17 12:43 Dose: 650 mg Acetaminophen (Tylenol 650 Mg Supp) 650 mg CA Q4 PRN PRN Reason: Fever >100.4 F Last Admin: 08/31/17 00:10 Dose: 650 mg Piperacillin Sod/Tazobactam (Sod 3.375 gm/ Sodium Chloride) 100 mls @ 100 mls/ hr IVPB Q6 [facility] PRN Reason: Protocol Last Admin: 09/04/17 10:55 Dose: 100 mls/hr Vancomycin HCl 1 gm/ Sodium (Chloride) 250 mls @ 166.667 mls/hr IVPB Q12@0500, 1700 [facility] PRN Reason: Protocol Last Admin: 09/04/17 04:30 Dose: 166.667 mls/hr Iron Sucrose 100 mg/ Sodium (Chloride) 105 mls @ 105 mls/hr IVPB DAILY [facility] Stop: 09/06/17 09:01 Last Admin: 09/04/17 10:55 Dose: 105 mls/hr Ondansetron HCl (Zofran Inj) 4 mg IVP Q6H PRN PRN Reason: Nausea/Vomiting Pantoprazole Sodium (Protonix Ec Tab) 40 mg PO DAILY [facility] Last Admin: 09/04/17 10:56 Dose: 40 mg - Labs Labs: 09/04/17 07:08 09/04/17 07:08 PT 13.8 Seconds (9.8-13.1) H 08/30/17 13:00 INR 1.2 (0.9-1.2) 08/30/17 13:00 APTT 30.9 Seconds (25.6-37.1) 08/30/17 13:00 Assessment and Plan - Assessment and Plan (Free Text) Assessment: - Constitutional Appears: No Acute Distress - Head Exam Head Exam: NORMAL INSPECTION, NORMOCEPHALIC - Eye Exam Eye Exam: EOMI, Normal appearance, PERRL Pupil Exam: NORMAL ACCOMODATION - ENT Exam ENT Exam: Mucous Membranes Moist, Normal External Ear Exam - Neck Exam Neck Exam: Full ROM. absent: Meningismus - Respiratory Exam Respiratory Exam: NORMAL BREATHING PATTERN. absent: Respiratory Distress minimal rales bases - Cardiovascular Exam Cardiovascular Exam: Tachycardia , +S1, +S2 occ skip beat - GI/Abdominal Exam GI & Abdominal Exam: Distended, Normal Bowel Sounds. absent: Guarding, Tenderness - Extremities Exam Extremities Exam: Full ROM, Normal Capillary Refill. absent: Calf Tenderness - Back Exam Back Exam: Full ROM. absent: CVA tenderness (L), CVA tenderness (R) - Neurological Exam Neurological Exam: Alert, Awake, CN II-XII Intact, Normal Gait, Oriented x3 Neuro motor strength exam: Left Upper Extremity: 5, Right Upper Extremity: 5, Left Lower Extremity: 5, Right Lower Extremity: 5 - Psychiatric Exam Psychiatric exam: Normal Affect, Normal Mood - Skin Skin Exam: Dry, Normal Color, Warm Assessment and Plan - Assessment and Plan (Free Text) Assessment: 37 y/o female with no significant PMH presented to ER complaining of 5 day history of right flank pain radiating to her RLQ associated with fever ,watery diarrhea, nausea , vomiting. Patient states that pain is dull like, improved with tylenol, denies any urinary symptoms, dysuria, frequency. She gives history of 17 years ago and complains of abdominal distention for the past 2 years. 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 In ER found to be febrile Tmax 101.3, WBC 13 lactate 2.2 Na 128 K 3[address] abdomen and pelvis showed :Colonic wall thickening on the right with adjacent inflammatory changes and small free fluid. The appendix is not identified. Extensive inflammatory changes which may be related to phlegmonous change/ developing abscess evident within right lower quadrant. Several foci of gas are noted in this region which are not clearly intraluminal. Appearance suspicious for loculated extra luminal gas, however free air cannot be entirely excluded. Correlate clinically for possibility of acute appendicitis/ruptured appendix. 21.3 x 26.4 cm cystic mass within the right mid pelvis of unclear etiology, possibly ovarian in origin. Hepatomegaly. Hepatic steatosis. Patchy right lower lobe atelectasis/infiltrates. Patient admitted in ICU for sepsis secondary to intra abdominal pathology. Surgery and Oil Well Service Operator consulted . She was started on IV vanco and zosyn for possible intra abdominal pathology . She was transfused 2 unit PRBC for anemia . At present transferred to telemetry , feeling better, pain resolved . Pelvis US showed:Unremarkable uterus and right ovary. Left adnexa is not visualized likely obscured common displaced by the large pelvic mass. Cystic pelvic mass incompletely visualize confirms findings on recent CT scan. This cannot be identified as originating from either the uterus or either adnexa. MRI abd and pelvis: Re- demonstration of large cystic mass lesion extending from the pelvis to the upper abdomen noted anterior to the uterus. 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 No evidence of thick septation or enhancing solid component in this cystic lesion. The uterus and the urinary bladder are displaced inferiorly. The right ovary is grossly unremarkable. Well defined thin wall cystic lesions/ cystic implant noted at the right mid abdomen adjacent to the inferior border of the liver of uncertain etiology. Differential consideration includes mesenteric implants from malignant neoplasm such as ovarian cancer. Inflammatory changes and heterogeneous enhancement noted in the right mid abdomen adjacent to the cecum of uncertain etiology. Correlate clinically for possible appendicitis or omental caking. Suspicious for mild omental thickening and enhancement at the mid and anterior aspect of the abdomen. The possibility of malignant neoplasm should be excluded. Re- demonstration of large cystic lesion extending from the pelvis. 1.Sepsis most likely secondary to intra abdominal pathology -- colitis vs abscess/ tuboovarian vs complex ovarian cyst less likely appendicitis Patient tachycardic , Tmax 101.3 WBC 13 k lactate 2.2 on admission and was admitted to ICU initially Obstructive series showed no free air on IVF Vanco, Zosyn IV Surgery and Oil Well Service Operator consulted blood cx and urine cx with no growth so far Persitently febrile, leukocytosis trending up elevated Procalcitonin ID consult- Dr Jackson CA125 - wnl 2. Large pelvic Mass ? malignant patient has been diagnosed with ovarian mass since 2013 functional architect eval appreciated (see note )-- can be scheduled as outpatient for surgery ca125- wnl 3. Hyponatremia most likely volume depleted due to diarrhea improved with IVF 4. Diarrhea Stool work up - culture, WBC, O/P, C Diff start empiric PO Flagyl 5. Azotemia- resolved Most likely prerenal given IVF 6. Abdominal distention most likely secondary to large pelvic mass Ct abdomen showed suspicious free air and fluid and hepatomegaly with steatosis Abdominal obstructive series showed no free air under the diaphragm. Patient has no peritonitis signs Continue monitoring 7. Anemia of chronic disease and iron deficiency Hgb dropped from 7.5 to 6.6 Transfused 3 unit PRBc Anemia work up showed very low iron stores . Started Venofer IV 8. DVt prophylaxis SCD hold off any anticoagulation for now
[2017-09-04 15:25] LABS: T4 10.4 ug/dl (5.5-11.0)
[2017-09-04] MEDS ORDERED: Oxycodone/Acetaminophen 5/325 mg Tab PO PRN (17:56)
[2017-09-04] MEDS: Potassium Chl 20 mEq in NS 1,000 ML IV SCH (19:47)
[2017-09-05] MEDS: Oxycodone/Acetaminophen 5/325 mg Tab PO PRN ×5 (00:35→21:30)
[2017-09-05] MEDS: Potassium Chl 20 mEq in NS 1,000 ML IV SCH ×2 (03:46→17:12)
[2017-09-05] MEDS: Piperacillin/Tazobact 3.375 GM in Sodium Chloride 0.9% 100 ML IVPB SCH ×4 (03:47→21:30)
[2017-09-05 05:55] LABS: BASO % 0.2 % (0.0-2.0); EOS # 0.1 K/uL (0.0-0.7); EOS % 0.8 % (0.0-4.0); HEMOGLOBIN 8.9 g/dL (12.0-16.0); LYMPH # 1.8 K/uL (1.0-4.3); LYMPH % 12.5 % (20.0-40.0); MEAN CELL VOLUME 67.7 fl (81.0-99.0); MEAN CORPUSCULAR HEMOGLOBIN 21.5 pg (27.0-31.0); MEAN CORPUSCULAR HGB CONC 31.7 g/dL (33.0-37.0); MEAN PLATELET VOLUME 6.7 fl (7.2-11.7); MONO # 1.2 K/uL (0.0-0.8); MONO % 8.6 % (0.0-10.0); NEUT # 11.1 K/uL (1.8-7.0); NEUT % 77.9 % (50.0-75.0); RBC 4.15 Mil/uL (3.80-5.20); RED CELL DISTRIBUTION WIDTH 30.3 % (11.5-14.5); WHITE BLOOD COUNT 14.3 K/uL (4.8-10.8)
[2017-09-05 05:58] LABS: ALT/SGPT 38 U/L (9-52); AST/SGOT 42 U/L (14-36); BLOOD UREA NITROGEN 3 mg/dl (7-17); CALCIUM 8.1 mg/dL (8.4-10.2); GFR AFRICAN-AMERICAN > 60; GFR NON-AFRICAN AMERICAN > 60
[2017-09-05 06:01] LABS: ALB/GLOB RATIO 0.9 (1.0-2.1)
[2017-09-05] MEDS: Pantoprazole 40 mg EC Tab PO SCH (09:35)
--- NOTE | 2017-09-05 11:46 | CP.PCM.PN ---
Subjective - Date & Time of Evaluation Date of Evaluation: 09/05/17 Time of Evaluation: 11:00 - Subjective Subjective: No fever today- had fever yesterday abd pain better no N/V had only one BM today , now formed no CP no SOB no cough Objective - Vital Signs/Intake and Output Vital Signs (last 24 hours): Temp Pulse Resp BP Pulse Ox 99.3 F 105 H 18 121/76 94 L 09/05/17 08:39 09/05/17 08:39 09/05/17 08:39 09/05/17 08:39 09/05/17 08:39 - Medications Medications: Current Medications Acetaminophen (Tylenol 325mg Tab) 650 mg PO Q6H PRN PRN Reason: Pain, Mild (1-3) Last Admin: 09/04/17 17:06 Dose: 650 mg Acetaminophen (Tylenol 325mg Tab) 650 mg PO Q6H PRN PRN Reason: Fever >100.4 F Last Admin: 09/03/17 12:43 Dose: 650 mg Acetaminophen (Tylenol 650 Mg Supp) 650 mg IN Q4 PRN PRN Reason: Fever >100.4 F Last Admin: 08/31/17 00:10 Dose: 650 mg Piperacillin Sod/Tazobactam (Sod 3.375 gm/ Sodium Chloride) 100 mls @ 100 mls/ hr IVPB Q6 [facility] PRN Reason: Protocol Last Admin: 09/05/17 09:36 Dose: 100 mls/hr Vancomycin HCl 1 gm/ Sodium (Chloride) 250 mls @ 166.667 mls/hr IVPB Q12@0500, 1700 [facility] PRN Reason: Protocol Last Admin: 09/05/17 06:19 Dose: 166.667 mls/hr Iron Sucrose 100 mg/ Sodium (Chloride) 105 mls @ 105 mls/hr IVPB DAILY [facility] Stop: 09/06/17 09:01 Last Admin: 09/04/17 10:55 Dose: 105 mls/hr Potassium Chloride/Sodium Chloride (Potassium Chl 20 Meq In Ns) 1,000 mls @ 100 mls/hr IV .Q10H [facility] Stop: 09/06/17 17:05 Last Admin: 09/05/17 03:46 Dose: 100 mls/hr Metronidazole (Flagyl) 500 mg PO Q8 [facility] PRN Reason: Protocol Last Admin: 09/05/17 09:36 Dose: 500 mg Ondansetron HCl (Zofran Inj) 4 mg IVP Q6H PRN PRN Reason: Nausea/Vomiting Oxycodone/Acetaminophen (Percocet 5/325 Mg Tab) 1 tab PO Q4 PRN PRN Reason: Pain, moderate (4-7) Stop: 09/08/17 01:01 Last Admin: 09/05/17 09:35 Dose: 1 tab Pantoprazole Sodium (Protonix Ec Tab) 40 mg PO DAILY [facility] Last Admin: 09/05/17 09:35 Dose: 40 mg - Labs Labs: 09/05/17 04:20 09/05/17 04:20 PT 13.8 Seconds (9.8-13.1) H 08/30/17 13:00 INR 1.2 (0.9-1.2) 08/30/17 13:00 APTT 30.9 Seconds (25.6-37.1) 08/30/17 13:00 Assessment and Plan - Assessment and Plan (Free Text) Assessment: - Constitutional Appears: No Acute Distress - Head Exam Head Exam: NORMAL INSPECTION, NORMOCEPHALIC - Eye Exam Eye Exam: EOMI, Normal appearance, PERRL Pupil Exam: NORMAL ACCOMODATION - ENT Exam ENT Exam: Mucous Membranes Moist, Normal External Ear Exam - Neck Exam Neck Exam: Full ROM. absent: Meningismus - Respiratory Exam Respiratory Exam: NORMAL BREATHING PATTERN. absent: Respiratory Distress minimal rales bases - Cardiovascular Exam Cardiovascular Exam: Tachycardia , +S1, +S2 - GI/Abdominal Exam GI & Abdominal Exam: Distended, Normal Bowel Sounds. absent: Guarding, Tenderness - Extremities Exam Extremities Exam: Full ROM, Normal Capillary Refill. absent: Calf Tenderness - Back Exam Back Exam: Full ROM. absent: CVA tenderness (L), CVA tenderness (R) - Neurological Exam Neurological Exam: Alert, Awake, CN II-XII Intact, Normal Gait, Oriented x3 Neuro motor strength exam: Left Upper Extremity: 5, Right Upper Extremity: 5, Left Lower Extremity: 5, Right Lower Extremity: 5 - Psychiatric Exam Psychiatric exam: Normal Affect, Normal Mood - Skin Skin Exam: Dry, Normal Color, Warm Assessment and Plan - Assessment and Plan (Free Text) Assessment: 37 y/o female with no significant PMH presented to ER complaining of 5 day history of right flank pain radiating to her RLQ associated with fever ,watery diarrhea, nausea , vomiting. Patient states that pain is dull like, improved with tylenol, denies any urinary symptoms, dysuria, frequency. She gives history of 17 years ago and complains of abdominal distention for the past 2 years. 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 In ER found to be febrile Tmax 101.3, WBC 13 lactate 2.2 Na 128 K [address] abdomen and pelvis showed :Colonic wall thickening on the right with adjacent inflammatory changes and small free fluid. The appendix is not identified. Extensive inflammatory changes which may be related to phlegmonous change/ developing abscess evident within right lower quadrant. Several foci of gas are noted in this region which are not clearly intraluminal. Appearance suspicious for loculated extra luminal gas, however free air cannot be entirely excluded. Correlate clinically for possibility of acute appendicitis/ruptured appendix. 21.3 x 26.4 cm cystic mass within the right mid pelvis of unclear etiology, possibly ovarian in origin. Hepatomegaly. Hepatic steatosis. Patchy right lower lobe atelectasis/infiltrates. Patient admitted in ICU for sepsis secondary to intra abdominal pathology. Surgery and Hospitality Services Manager consulted . She was started on IV vanco and zosyn for possible intra abdominal pathology . She was transfused 2 unit PRBC for anemia . At present transferred to telemetry , feeling better, pain resolved . Pelvis US showed:Unremarkable uterus and right ovary. Left adnexa is not visualized likely obscured common displaced by the large pelvic mass. Cystic pelvic mass incompletely visualize confirms findings on recent CT scan. This cannot be identified as originating from either the uterus or either adnexa. MRI abd and pelvis: Re- demonstration of large cystic mass lesion extending from the pelvis to the upper abdomen noted anterior to the uterus. 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 No evidence of thick septation or enhancing solid component in this cystic lesion. The uterus and the urinary bladder are displaced inferiorly. The right ovary is grossly unremarkable. Well defined thin wall cystic lesions/ cystic implant noted at the right mid abdomen adjacent to the inferior border of the liver of uncertain etiology. Differential consideration includes mesenteric implants from malignant neoplasm such as ovarian cancer. Inflammatory changes and heterogeneous enhancement noted in the right mid abdomen adjacent to the cecum of uncertain etiology. Correlate clinically for possible appendicitis or omental caking. Suspicious for mild omental thickening and enhancement at the mid and anterior aspect of the abdomen. The possibility of malignant neoplasm should be excluded. Re- demonstration of large cystic lesion extending from the pelvis. 1.Sepsis most likely secondary to intra abdominal pathology -- colitis vs abscess/ tuboovarian vs complex ovarian cyst less likely appendicitis Patient tachycardic , Tmax 101.3 WBC 13 k lactate 2.2 on admission and was admitted to ICU initially Obstructive series showed no free air on IVF hydration Vanco, Zosyn IV Surgery and Hospitality Services Manager consulted blood cx and urine cx with no growth so far Persitently febrile, leukocytosis trending up elevated Procalcitonin ID consult- Dr Jackson CA125 - wnl 2. Large pelvic Mass ? malignant patient has been diagnosed with ovarian mass since 2013 safety administrator eval appreciated (see note )-- can be scheduled as outpatient for surgery ca125- wnl AFP: normal CEA : normal Quantiferon TB test pending 3. Hyponatremia most likely volume depleted due to diarrhea improved with IVF 4. Diarrhea Stool work up - culture, WBC, O/P, C Diff start empiric PO Flagyl 5. Azotemia- resolved Most likely prerenal given IVF 6. Abdominal distention most likely secondary to large pelvic mass Ct abdomen showed suspicious free air and fluid and hepatomegaly with steatosis Abdominal obstructive series showed no free air under the diaphragm. Patient has no peritonitis signs Continue monitoring 7. Anemia of chronic disease and iron deficiency Hgb dropped from 7.5 to 6.6 Transfused 3 unit PRBc Anemia work up showed very low iron stores . Started Venofer IV 8. DVt prophylaxis SCD Lovenox
[2017-09-06] MEDS: Potassium Chl 20 mEq in NS 1,000 ML IV SCH ×2 (00:56→09:42)
[2017-09-06] MEDS: Oxycodone/Acetaminophen 5/325 mg Tab PO PRN ×6 (00:56→21:27)
[2017-09-06] MEDS: Piperacillin/Tazobact 3.375 GM in Sodium Chloride 0.9% 100 ML IVPB SCH ×4 (04:44→21:28)
[2017-09-06 05:42] LABS: HEMOGLOBIN 8.9 g/dL (12.0-16.0); MEAN CELL VOLUME 68.5 fl (81.0-99.0); MEAN CORPUSCULAR HEMOGLOBIN 20.7 pg (27.0-31.0); MEAN CORPUSCULAR HGB CONC 30.2 g/dL (33.0-37.0); RBC 4.3 Mil/uL (3.80-5.20); WHITE BLOOD COUNT 14.3 K/uL (4.8-10.8)
[2017-09-06 06:05] LABS: BLOOD UREA NITROGEN 3 mg/dl (7-17); CALCIUM 8.4 mg/dL (8.4-10.2); GFR AFRICAN-AMERICAN > 60; GFR NON-AFRICAN AMERICAN > 60
[2017-09-06] MEDS: Enoxaparin 40 mg Syringe SC SCH (09:40)
[2017-09-06] MEDS: Pantoprazole 40 mg EC Tab PO SCH (09:43)
--- NOTE | 2017-09-06 11:05 | CP.PCM.PN ---
Subjective - Date & Time of Evaluation Date of Evaluation: 09/06/17 Time of Evaluation: 10:30 - Subjective Subjective: No fever x 2 days abd pain better diarrhea resolved no cough no SOB no CP no N/V menstruation ended 2 days ago Objective - Vital Signs/Intake and Output Vital Signs (last 24 hours): Temp Pulse Resp BP Pulse Ox 98.4 F 92 H 18 126/70 96 09/06/17 08:09 09/06/17 08:09 09/06/17 08:09 09/06/17 08:09 09/06/17 08:09 - Medications Medications: Current Medications Acetaminophen (Tylenol 325mg Tab) 650 mg PO Q6H PRN PRN Reason: Pain, Mild (1-3) Last Admin: 09/04/17 17:06 Dose: 650 mg Acetaminophen (Tylenol 325mg Tab) 650 mg PO Q6H PRN PRN Reason: Fever >100.4 F Last Admin: 09/03/17 12:43 Dose: 650 mg Acetaminophen (Tylenol 650 Mg Supp) 650 mg AL Q4 PRN PRN Reason: Fever >100.4 F Last Admin: 08/31/17 00:10 Dose: 650 mg Enoxaparin Sodium (Lovenox) 40 mg SC DAILY [facility] PRN Reason: Protocol Last Admin: 09/06/17 09:40 Dose: 40 mg Piperacillin Sod/Tazobactam (Sod 3.375 gm/ Sodium Chloride) 100 mls @ 100 mls/ hr IVPB Q6 [facility] PRN Reason: Protocol Last Admin: 09/06/17 09:41 Dose: 100 mls/hr Vancomycin HCl 1 gm/ Sodium (Chloride) 250 mls @ 166.667 mls/hr IVPB Q12@0500, 1700 [facility] PRN Reason: Protocol Last Admin: 09/06/17 04:44 Dose: 166.667 mls/hr Potassium Chloride/Sodium Chloride (Potassium Chl 20 Meq In Ns) 1,000 mls @ 100 mls/hr IV .Q10H [facility] Stop: 09/06/17 17:05 Last Admin: 09/06/17 09:42 Dose: 100 mls/hr Metronidazole (Flagyl) 500 mg PO Q8 [facility] PRN Reason: Protocol Last Admin: 09/06/17 09:41 Dose: 500 mg Ondansetron HCl (Zofran Inj) 4 mg IVP Q6H PRN PRN Reason: Nausea/Vomiting Oxycodone/Acetaminophen (Percocet 5/325 Mg Tab) 1 tab PO Q4 PRN PRN Reason: Pain, moderate (4-7) Stop: 09/08/17 01:01 Last Admin: 09/06/17 09:39 Dose: 1 tab Pantoprazole Sodium (Protonix Ec Tab) 40 mg PO DAILY [facility] Last Admin: 09/06/17 09:43 Dose: 40 mg - Labs Labs: 09/06/17 04:25 09/06/17 04:25 PT 13.8 Seconds (9.8-13.1) H 08/30/17 13:00 INR 1.2 (0.9-1.2) 08/30/17 13:00 APTT 30.9 Seconds (25.6-37.1) 08/30/17 13:00 - Constitutional Appears: No Acute Distress - Head Exam Head Exam: NORMAL INSPECTION, NORMOCEPHALIC - Eye Exam Eye Exam: EOMI, Normal appearance, PERRL Pupil Exam: NORMAL ACCOMODATION - ENT Exam ENT Exam: Mucous Membranes Moist, Normal External Ear Exam - Neck Exam Neck Exam: Full ROM. absent: Meningismus - Respiratory Exam Respiratory Exam: NORMAL BREATHING PATTERN. absent: Respiratory Distress minimal rales bases - Cardiovascular Exam Cardiovascular Exam: Tachycardia , +S1, +S2 - GI/Abdominal Exam GI & Abdominal Exam: Distended, Normal Bowel Sounds. absent: Guarding, Tenderness - Extremities Exam Extremities Exam: Full ROM, Normal Capillary Refill. absent: Calf Tenderness - Back Exam Back Exam: Full ROM. absent: CVA tenderness (L), CVA tenderness (R) - Neurological Exam Neurological Exam: Alert, Awake, CN II-XII Intact, Normal Gait, Oriented x3 Neuro motor strength exam: Left Upper Extremity: 5, Right Upper Extremity: 5, Left Lower Extremity: 5, Right Lower Extremity: 5 - Psychiatric Exam Psychiatric exam: Normal Affect, Normal Mood - Skin Skin Exam: Dry, Normal Color, Warm Assessment and Plan - Assessment and Plan (Free Text) Assessment: 37 y/o female with no significant PMH presented to ER complaining of 5 day history of right flank pain radiating to her RLQ associated with fever ,watery diarrhea, nausea , vomiting. Patient states that pain is dull like, improved with tylenol, denies any urinary symptoms, dysuria, frequency. She gives history of 17 years ago and complains of abdominal distention for the past 2 years. 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 In ER found to be febrile Tmax 101.3, WBC 13 lactate 2.2 Na 128 K [address] abdomen and pelvis showed :Colonic wall thickening on the right with adjacent inflammatory changes and small free fluid. The appendix is not identified. Extensive inflammatory changes which may be related to phlegmonous change/ developing abscess evident within right lower quadrant. Several foci of gas are noted in this region which are not clearly intraluminal. Appearance suspicious for loculated extra luminal gas, however free air cannot be entirely excluded. Correlate clinically for possibility of acute appendicitis/ruptured appendix. 21.3 x 26.4 cm cystic mass within the right mid pelvis of unclear etiology, possibly ovarian in origin. Hepatomegaly. Hepatic steatosis. Patchy right lower lobe atelectasis/infiltrates. Patient admitted in ICU for sepsis secondary to intra abdominal pathology. Surgery and Counter Server consulted . She was started on IV vanco and zosyn for possible intra abdominal pathology . She was transfused 2 unit PRBC for anemia . At present transferred to telemetry , feeling better, pain resolved . Pelvis US showed:Unremarkable uterus and right ovary. Left adnexa is not visualized likely obscured common displaced by the large pelvic mass. Cystic pelvic mass incompletely visualize confirms findings on recent CT scan. This cannot be identified as originating from either the uterus or either adnexa. MRI abd and pelvis: Re- demonstration of large cystic mass lesion extending from the pelvis to the upper abdomen noted anterior to the uterus. 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 No evidence of thick septation or enhancing solid component in this cystic lesion. The uterus and the urinary bladder are displaced inferiorly. The right ovary is grossly unremarkable. Well defined thin wall cystic lesions/ cystic implant noted at the right mid abdomen adjacent to the inferior border of the liver of uncertain etiology. Differential consideration includes mesenteric implants from malignant neoplasm such as ovarian cancer. Inflammatory changes and heterogeneous enhancement noted in the right mid abdomen adjacent to the cecum of uncertain etiology. Correlate clinically for possible appendicitis or omental caking. Suspicious for mild omental thickening and enhancement at the mid and anterior aspect of the abdomen. The possibility of malignant neoplasm should be excluded. Re- demonstration of large cystic lesion extending from the pelvis. 1.Sepsis most likely secondary to intra abdominal pathology -- colitis vs abscess/ tubo- ovarian vs complex ovarian cyst unlikely appendicitis Patient tachycardic , Tmax 101.3 WBC 13 k lactate 2.2 on admission and was admitted to ICU initially Obstructive series showed no free air on IVF hydration cont Vanco, Zosyn IV Surgery and Counter Server consulted blood cx and urine cx with no growth so far elevated Procalcitonin ID consult- Dr Jackson CA125 - wnl HIV test negative 2. Large pelvic Mass ? malignant patient has been diagnosed with ovarian mass since 2013 interior horticulturist eval appreciated (see note )-- can be scheduled as outpatient for surgery ca125- wnl AFP: normal CEA : normal Quantiferon TB test pending 3. Hyponatremia most likely volume depleted due to diarrhea improved with IVF 4. Diarrhea Stool work up - culture, WBC, O/P, C Diff started empiric PO Flagyl 5. Azotemia- resolved Most likely prerenal given IVF 6. Anemia of chronic disease and iron deficiency Hgb dropped from 7.5 to 6.6 Transfused 3 unit PRBc Anemia work up showed very low iron stores . Started Venofer IV DVt prophylaxis SCD Lovenox
[2017-09-07] MEDS: Oxycodone/Acetaminophen 5/325 mg Tab PO PRN ×4 (01:58→22:18)
[2017-09-07] MEDS: Piperacillin/Tazobact 3.375 GM in Sodium Chloride 0.9% 100 ML IVPB SCH ×4 (04:22→22:20)
[2017-09-07 05:30] LABS: HEMOGLOBIN 8.4 g/dL (12.0-16.0); MEAN CELL VOLUME 69.9 fl (81.0-99.0); MEAN CORPUSCULAR HEMOGLOBIN 20.2 pg (27.0-31.0); MEAN CORPUSCULAR HGB CONC 28.9 g/dL (33.0-37.0); RBC 4.16 Mil/uL (3.80-5.20); RED CELL DISTRIBUTION WIDTH 30.8 % (11.5-14.5); WHITE BLOOD COUNT 11.9 K/uL (4.8-10.8)
[2017-09-07 06:17] LABS: TB ANTIGEN MINUS NIL 7.47 IU/mL
[2017-09-07] MEDS: Pantoprazole 40 mg EC Tab PO SCH (09:14)
[2017-09-07] MEDS ORDERED: Peg-Electrolyte Oral Soln 4L (Golytely) PO ONE ×2 (11:32→12:00)
--- NOTE | 2017-09-07 12:39 | CP.PCM.PN ---
Subjective - Date & Time of Evaluation Date of Evaluation: 09/07/17 Time of Evaluation: 11:30 - Subjective Subjective: No fever since 09/04 Leukocytosis trending down to almost normal abd pain better still with diarrhea no CP no SOB denies cough Objective - Vital Signs/Intake and Output Vital Signs (last 24 hours): Temp Pulse Resp BP Pulse Ox 98.5 F 98 H 20 114/68 94 L 09/07/17 08:30 09/07/17 08:30 09/07/17 08:30 09/07/17 08:30 09/07/17 08:30 - Medications Medications: Current Medications Acetaminophen (Tylenol 325mg Tab) 650 mg PO Q6H PRN PRN Reason: Pain, Mild (1-3) Last Admin: 09/04/17 17:06 Dose: 650 mg Acetaminophen (Tylenol 325mg Tab) 650 mg PO Q6H PRN PRN Reason: Fever >100.4 F Last Admin: 09/03/17 12:43 Dose: 650 mg Acetaminophen (Tylenol 650 Mg Supp) 650 mg [place] Q4 PRN PRN Reason: Fever >100.4 F Last Admin: 08/31/17 00:10 Dose: 650 mg Enoxaparin Sodium (Lovenox) 40 mg SC DAILY [facility] PRN Reason: Protocol Last Admin: 09/06/17 09:40 Dose: 40 mg Piperacillin Sod/Tazobactam (Sod 3.375 gm/ Sodium Chloride) 100 mls @ 100 mls/ hr IVPB Q6 [facility] PRN Reason: Protocol Last Admin: 09/07/17 09:15 Dose: 100 mls/hr Vancomycin HCl 1 gm/ Sodium (Chloride) 250 mls @ 166.667 mls/hr IVPB Q12@0500, 1700 [facility] PRN Reason: Protocol Last Admin: 09/07/17 09:15 Dose: 166.667 mls/hr Metronidazole (Flagyl) 500 mg PO Q8 [facility] PRN Reason: Protocol Last Admin: 09/07/17 09:14 Dose: 500 mg Ondansetron HCl (Zofran Inj) 4 mg IVP Q6H PRN PRN Reason: Nausea/Vomiting Oxycodone/Acetaminophen (Percocet 5/325 Mg Tab) 1 tab PO Q4 PRN PRN Reason: Pain, moderate (4-7) Stop: 09/08/17 01:01 Last Admin: 09/07/17 07:01 Dose: 1 tab Pantoprazole Sodium (Protonix Ec Tab) 40 mg PO DAILY [facility] Last Admin: 09/07/17 09:14 Dose: 40 mg - Labs Labs: 09/07/17 04:30 09/06/17 04:25 PT 13.8 Seconds (9.8-13.1) H 08/30/17 13:00 INR 1.2 (0.9-1.2) 08/30/17 13:00 APTT 30.9 Seconds (25.6-37.1) 08/30/17 13:00 - Constitutional Appears: No Acute Distress - Head Exam Head Exam: NORMAL INSPECTION, NORMOCEPHALIC - Eye Exam Eye Exam: EOMI, Normal appearance, PERRL Pupil Exam: NORMAL ACCOMODATION - ENT Exam ENT Exam: Mucous Membranes Moist, Normal External Ear Exam - Neck Exam Neck Exam: Full ROM. absent: Meningismus - Respiratory Exam Respiratory Exam: NORMAL BREATHING PATTERN. absent: Respiratory Distress minimal rales bases - Cardiovascular Exam Cardiovascular Exam: Tachycardia , +S1, +S2 - GI/Abdominal Exam GI & Abdominal Exam: Distended, Normal Bowel Sounds. absent: Guarding, Tenderness - Extremities Exam Extremities Exam: Full ROM, Normal Capillary Refill. absent: Calf Tenderness - Back Exam Back Exam: Full ROM. absent: CVA tenderness (L), CVA tenderness (R) - Neurological Exam Neurological Exam: Alert, Awake, CN II-XII Intact, Normal Gait, Oriented x3 Neuro motor strength exam: Left Upper Extremity: 5, Right Upper Extremity: 5, Left Lower Extremity: 5, Right Lower Extremity: 5 - Psychiatric Exam Psychiatric exam: Normal Affect, Normal Mood - Skin Skin Exam: Dry, Normal Color, Warm Assessment and Plan - Assessment and Plan (Free Text) Assessment: 37 y/o female with no significant PMH presented to ER complaining of 5 day history of right flank pain radiating to her RLQ associated with fever ,watery diarrhea, nausea , vomiting. Patient states that pain is dull like, improved with tylenol, denies any urinary symptoms, dysuria, frequency. She gives history of 17 years ago and complains of abdominal distention for the past 2 years. 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 In ER found to be febrile Tmax 101.3, WBC 13 lactate 2.2 Na 128 K 3[address] abdomen and pelvis showed :Colonic wall thickening on the right with adjacent inflammatory changes and small free fluid. The appendix is not identified. Extensive inflammatory changes which may be related to phlegmonous change/ developing abscess evident within right lower quadrant. Several foci of gas are noted in this region which are not clearly intraluminal. Appearance suspicious for loculated extra luminal gas, however free air cannot be entirely excluded. Correlate clinically for possibility of acute appendicitis/ruptured appendix. 21.3 x 26.4 cm cystic mass within the right mid pelvis of unclear etiology, possibly ovarian in origin. Hepatomegaly. Hepatic steatosis. Patchy right lower lobe atelectasis/infiltrates. Patient admitted in ICU for sepsis secondary to intra abdominal pathology. Surgery and Offal Roller consulted . She was started on IV vanco and zosyn for possible intra abdominal pathology . She was transfused 2 unit PRBC for anemia . At present transferred to telemetry , feeling better, pain resolved . Pelvis US showed:Unremarkable uterus and right ovary. Left adnexa is not visualized likely obscured common displaced by the large pelvic mass. Cystic pelvic mass incompletely visualize confirms findings on recent CT scan. This cannot be identified as originating from either the uterus or either adnexa. MRI abd and pelvis: Re- demonstration of large cystic mass lesion extending from the pelvis to the upper abdomen noted anterior to the uterus. 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 No evidence of thick septation or enhancing solid component in this cystic lesion. The uterus and the urinary bladder are displaced inferiorly. The right ovary is grossly unremarkable. Well defined thin wall cystic lesions/ cystic implant noted at the right mid abdomen adjacent to the inferior border of the liver of uncertain etiology. Differential consideration includes mesenteric implants from malignant neoplasm such as ovarian cancer. Inflammatory changes and heterogeneous enhancement noted in the right mid abdomen adjacent to the cecum of uncertain etiology. Correlate clinically for possible appendicitis or omental caking. Suspicious for mild omental thickening and enhancement at the mid and anterior aspect of the abdomen. The possibility of malignant neoplasm should be excluded. Re- demonstration of large cystic lesion extending from the pelvis. 1.Sepsis unclear etiology most likely secondary to intra abdominal pathology unlikely appendicitis Patient tachycardic , Tmax 101.3 WBC 13 k lactate 2.2 on admission and was admitted to ICU initially Obstructive series showed no free air IVF hydration ID consulted : Dr Manuel carr Vanco, Zosyn IV Surgery and Offal Roller consulted blood cx and urine cx with no growth so far elevated Procalcitonin CA125 - elevated HIV test negative 2. Large pelvic Mass ? 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 Hyponatremia most likely volume depleted due to diarrhea improved with IVF 4. Diarrhea Stool work up - culture, WBC, O/P, C Diff: negative started empiric PO Flagyl 5. Azotemia- resolved Most likely prerenal given IVF 6. Anemia of chronic disease and iron deficiency Hgb dropped from 7.5 to 6.6 Transfused 3 unit PRBc Anemia work up showed very low iron stores . Started Venofer IV 7. Quantiferon + no resp sxs CXR : negative Pulm consult DVt prophylaxis SCD Lovenox
--- NOTE | 2017-09-07 13:18 | CP.PCM.PN ---
Subjective - Date & Time of Evaluation Date of Evaluation: 09/07/17 Time of Evaluation: 09:00 - Subjective Subjective: events noted large cystic mass in pelvis + will need biopsy + Quantiferon but no chest complaints- recc pulm eval Cont IV antibiotics GI eval in progress Objective - Vital Signs/Intake and Output Vital Signs (last 24 hours): Temp Pulse Resp BP Pulse Ox 98.2 F 77 18 110/64 95 09/07/17 13:00 09/07/17 13:00 09/07/17 13:00 09/07/17 13:00 09/07/17 13:00 - Medications Medications: Current Medications Acetaminophen (Tylenol 325mg Tab) 650 mg PO Q6H PRN PRN Reason: Pain, Mild (1-3) Last Admin: 09/04/17 17:06 Dose: 650 mg Acetaminophen (Tylenol 325mg Tab) 650 mg PO Q6H PRN PRN Reason: Fever >100.4 F Last Admin: 09/03/17 12:43 Dose: 650 mg Acetaminophen (Tylenol 650 Mg Supp) 650 mg [place] Q4 PRN PRN Reason: Fever >100.4 F Last Admin: 08/31/17 00:10 Dose: 650 mg Enoxaparin Sodium (Lovenox) 40 mg SC DAILY [facility] PRN Reason: Protocol Last Admin: 09/06/17 09:40 Dose: 40 mg Piperacillin Sod/Tazobactam (Sod 3.375 gm/ Sodium Chloride) 100 mls @ 100 mls/ hr IVPB Q6 [facility] PRN Reason: Protocol Last Admin: 09/07/17 09:15 Dose: 100 mls/hr Vancomycin HCl 1 gm/ Sodium (Chloride) 250 mls @ 166.667 mls/hr IVPB Q12@0500, 1700 [facility] PRN Reason: Protocol Last Admin: 09/07/17 09:15 Dose: 166.667 mls/hr Metronidazole (Flagyl) 500 mg PO Q8 [facility] PRN Reason: Protocol Last Admin: 09/07/17 09:14 Dose: 500 mg Ondansetron HCl (Zofran Inj) 4 mg IVP Q6H PRN PRN Reason: Nausea/Vomiting Oxycodone/Acetaminophen (Percocet 5/325 Mg Tab) 1 tab PO Q4 PRN PRN Reason: Pain, moderate (4-7) Stop: 09/08/17 01:01 Last Admin: 09/07/17 07:01 Dose: 1 tab Pantoprazole Sodium (Protonix Ec Tab) 40 mg PO DAILY [facility] Last Admin: 09/07/17 09:14 Dose: 40 mg - Labs Labs: 09/07/17 04:30 09/06/17 04:25 PT 13.8 Seconds (9.8-13.1) H 08/30/17 13:00 INR 1.2 (0.9-1.2) 08/30/17 13:00 APTT 30.9 Seconds (25.6-37.1) 08/30/17 13:00 - Constitutional Appears: Non-toxic, Chronically Ill - Head Exam Head Exam: NORMOCEPHALIC - Eye Exam Eye Exam: PERRL. absent: Scleral icterus - ENT Exam ENT Exam: Mucous Membranes Dry - Neck Exam Neck Exam: absent: Lymphadenopathy - Respiratory Exam Respiratory Exam: Decreased Breath Sounds, Clear to Ausculation Bilateral - Cardiovascular Exam Cardiovascular Exam: REGULAR RHYTHM - GI/Abdominal Exam GI & Abdominal Exam: Distended, Soft, Tenderness - Rectal Exam Rectal Exam: Deferred Assessment and Plan (1) Ovarian mass Status: Acute - Assessment and Plan (Free Text) Plan: consider bx to r/o malignancy
[2017-09-07] MEDS: Erythromycin Stearat 250 mg Tab PO SCH ×2 (15:00→16:23)
--- NOTE | 2017-09-07 15:14 | CP.PCM.PN ---
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 GÓMEZ & Dr. WETZEL Patient seen and examined at bedside. She states that her pain is better. Had some diarrhea. She denies cough or difficulty breathing. Did have night sweats last night. Objective - Vital Signs/Intake and Output Vital Signs (last 24 hours): Temp Pulse Resp BP Pulse Ox 98.2 F 77 18 110/64 95 09/07/17 13:00 09/07/17 13:00 09/07/17 13:00 09/07/17 13:00 09/07/17 13:00 - Medications Medications: Current Medications Acetaminophen (Tylenol 325mg Tab) 650 mg PO Q6H PRN PRN Reason: Pain, Mild (1-3) Last Admin: 09/04/17 17:06 Dose: 650 mg Acetaminophen (Tylenol 325mg Tab) 650 mg PO Q6H PRN PRN Reason: Fever >100.4 F Last Admin: 09/03/17 12:43 Dose: 650 mg Acetaminophen (Tylenol 650 Mg Supp) 650 mg [place] Q4 PRN PRN Reason: Fever >100.4 F Last Admin: 08/31/17 00:10 Dose: 650 mg Enoxaparin Sodium (Lovenox) 40 mg SC DAILY [facility] PRN Reason: Protocol Last Admin: 09/06/17 09:40 Dose: 40 mg Erythromycin (Erythocin) 1,000 mg PO TID@0000,1500,1600 [facility] PRN Reason: Protocol Stop: 09/08/17 00:01 Piperacillin Sod/Tazobactam (Sod 3.375 gm/ Sodium Chloride) 100 mls @ 100 mls/ hr IVPB Q6 [facility] PRN Reason: Protocol Last Admin: 09/07/17 09:15 Dose: 100 mls/hr Vancomycin HCl 1 gm/ Sodium (Chloride) 250 mls @ 166.667 mls/hr IVPB Q12@0500, 1700 [facility] PRN Reason: Protocol Last Admin: 09/07/17 09:15 Dose: 166.667 mls/hr Metronidazole (Flagyl) 500 mg PO Q8 [facility] PRN Reason: Protocol Last Admin: 09/07/17 09:14 Dose: 500 mg Neomycin Sulfate (Neomycin Tab) 1,000 mg PO TID@0000,1500,1600 [facility] Stop: 09/07/17 16:01 Ondansetron HCl (Zofran Inj) 4 mg IVP Q6H PRN PRN Reason: Nausea/Vomiting Oxycodone/Acetaminophen (Percocet 5/325 Mg Tab) 1 tab PO Q4 PRN PRN Reason: Pain, moderate (4-7) Stop: 09/08/17 01:01 Last Admin: 09/07/17 07:01 Dose: 1 tab Pantoprazole Sodium (Protonix Ec Tab) 40 mg PO DAILY [facility] Last Admin: 09/07/17 09:14 Dose: 40 mg - Labs Labs: 09/07/17 04:30 09/06/17 04:25 PT 13.8 Seconds (9.8-13.1) H 08/30/17 13:00 INR 1.2 (0.9-1.2) 08/30/17 13:00 APTT 30.9 Seconds (25.6-37.1) 08/30/17 13:00 - Constitutional Appears: Well, Non-toxic, No Acute Distress - Head Exam Head Exam: ATRAUMATIC, NORMAL INSPECTION - Eye Exam Eye Exam: EOMI, Normal appearance - Respiratory Exam Respiratory Exam: NORMAL BREATHING PATTERN. absent: Respiratory Distress - Cardiovascular Exam Cardiovascular Exam: +S1, +S2 - GI/Abdominal Exam GI & Abdominal Exam: Firm, Soft, Mass (palpable mass). absent: Guarding, Rigid , Tenderness - Neurological Exam Neurological Exam: Alert, Awake - Psychiatric Exam Psychiatric exam: Normal Affect, Normal Mood - Skin Skin Exam: Dry, Normal Color, Warm Assessment and Plan - Assessment and Plan (Free Text) Assessment: 37yo F with large pelvic mass - OR tomorrow for exploratory laparotomy with mass removal - Labs and coags ordered for tomorrow - Type and cross 2 units - Bowel prep today: Erythromycin, Neomycin, GoLytely (hospital does not carry Movi Prep) - NPO past midnight - Procedure and risks explained to patient in Macedonian. All questions were answered. Written consent was obtained. - Repeat CXR ordered prior to OR due to + Quantiferon. Case discussed with Dr. Latif and Dr. Jackson - Discussed plan with Dr. Estrella Rock PGY-3
--- NOTE | 2017-09-07 16:54 | RAD ---
HISTORY: TB quantiferon COMPARISON: No prior. FINDINGS: LUNGS: Low lung volumes. No active pulmonary disease. PLEURA: No significant pleural effusion identified, no pneumothorax apparent. CARDIOVASCULAR: Normal. OSSEOUS STRUCTURES: No significant abnormalities. VISUALIZED UPPER ABDOMEN: Normal. OTHER FINDINGS: None. IMPRESSION: No active disease.
[2017-09-07] MEDS: Lactated Ringer's 1,000 ML IV SCH (22:16)
[2017-09-08] MEDS: Erythromycin Stearat 250 mg Tab PO SCH (00:23)
[2017-09-08] MEDS: Lactated Ringer's 1,000 ML IV SCH ×6 (04:04→21:46)
[2017-09-08] MEDS: Piperacillin/Tazobact 3.375 GM in Sodium Chloride 0.9% 100 ML IVPB SCH ×4 (04:15→21:40)
[2017-09-08 05:39] LABS: BASO # 0.1 K/uL (0.0-0.2); BASO % 0.5 % (0.0-2.0); EOS # 0.1 K/uL (0.0-0.7); EOS % 0.8 % (0.0-4.0); HEMOGLOBIN 9.3 g/dL (12.0-16.0); LYMPH # 1.5 K/uL (1.0-4.3); LYMPH % 13.5 % (20.0-40.0); MEAN CELL VOLUME 68.5 fl (81.0-99.0); MEAN CORPUSCULAR HEMOGLOBIN 21.2 pg (27.0-31.0); MEAN CORPUSCULAR HGB CONC 30.9 g/dL (33.0-37.0); MEAN PLATELET VOLUME 6.7 fl (7.2-11.7); MONO % 9.4 % (0.0-10.0); NEUT # 8.5 K/uL (1.8-7.0); NEUT % 75.8 % (50.0-75.0); RBC 4.37 Mil/uL (3.80-5.20); RED CELL DISTRIBUTION WIDTH 31.8 % (11.5-14.5); WHITE BLOOD COUNT 11.2 K/uL (4.8-10.8)
[2017-09-08 06:04] LABS: ALB/GLOB RATIO 0.8 (1.0-2.1); ALBUMIN 3.2 g/dL (3.5-5.0); ALT/SGPT 36 U/L (9-52); AST/SGOT 64 U/L (14-36); BLOOD UREA NITROGEN 5 mg/dl (7-17); CALCIUM 8.9 mg/dL (8.4-10.2); GFR AFRICAN-AMERICAN > 60; GFR NON-AFRICAN AMERICAN > 60
[2017-09-08 06:11] LABS: PROTHROMBIN TIME 15.1 Seconds (9.8-13.1)
[2017-09-08 06:12] LABS: INR 1.4 (0.9-1.2); PARTIAL THROMBOPLASTIN TIME 30.4 Seconds (25.6-37.1)
[2017-09-08] MEDS: Pantoprazole 40 mg EC Tab PO SCH (09:07)
--- NOTE | 2017-09-08 10:08 | CP.PCM.PN ---
Subjective - Date & Time of Evaluation Date of Evaluation: 09/08/17 Time of Evaluation: 10:00 - Subjective Subjective: Patient seen and examined bedside. Waiting to go to OR Felling well. Denies any abdominal pain or chest pain. With some abdominal discomfort. Hemodynamically stable, afebrile No acute issues overnight Objective - Vital Signs/Intake and Output Vital Signs (last 24 hours): Temp Pulse Resp BP Pulse Ox 98.5 F 82 20 117/75 96 09/08/17 08:41 09/08/17 08:41 09/08/17 08:41 09/08/17 08:41 09/08/17 08:41 Intake and Output: 09/08/17 09/08/17 06:59 18:59 Intake Total 1200 Balance 1200 - Medications Medications: Current Medications Acetaminophen (Tylenol 325mg Tab) 650 mg PO Q6H PRN PRN Reason: Pain, Mild (1-3) Last Admin: 09/04/17 17:06 Dose: 650 mg Acetaminophen (Tylenol 325mg Tab) 650 mg PO Q6H PRN PRN Reason: Fever >100.4 F Last Admin: 09/03/17 12:43 Dose: 650 mg Acetaminophen (Tylenol 650 Mg Supp) 650 mg [place] Q4 PRN PRN Reason: Fever >100.4 F Last Admin: 08/31/17 00:10 Dose: 650 mg Enoxaparin Sodium (Lovenox) 40 mg SC DAILY [facility] PRN Reason: Protocol Last Admin: 09/06/17 09:40 Dose: 40 mg Piperacillin Sod/Tazobactam (Sod 3.375 gm/ Sodium Chloride) 100 mls @ 100 mls/ hr IVPB Q6 [facility] PRN Reason: Protocol Last Admin: 09/08/17 09:07 Dose: 100 mls/hr Vancomycin HCl 1 gm/ Sodium (Chloride) 250 mls @ 166.667 mls/hr IVPB Q12@0500, 1700 [facility] PRN Reason: Protocol Last Admin: 09/08/17 04:54 Dose: 166.667 mls/hr Lactated Ringer's (Lactated Ringer's) 1,000 mls @ 125 mls/hr IV .Q8H [facility] Last Admin: 09/08/17 04:04 Dose: Not Given Metronidazole (Flagyl) 500 mg PO Q8 [facility] PRN Reason: Protocol Last Admin: 09/08/17 09:07 Dose: Not Given Ondansetron HCl (Zofran Inj) 4 mg IVP Q6H PRN PRN Reason: Nausea/Vomiting Pantoprazole Sodium (Protonix Ec Tab) 40 mg PO DAILY [facility] Last Admin: 09/08/17 09:07 Dose: Not Given - Labs Labs: 09/08/17 05:00 09/08/17 05:00 PT 15.1 Seconds (9.8-13.1) H 09/08/17 05:00 INR 1.4 (0.9-1.2) H 09/08/17 05:00 APTT 30.4 Seconds (25.6-37.1) 09/08/17 05:00 - Constitutional Appears: Non-toxic, No Acute Distress - Head Exam Head Exam: ATRAUMATIC, NORMAL INSPECTION, NORMOCEPHALIC - Eye Exam Eye Exam: EOMI, Normal appearance, PERRL Pupil Exam: NORMAL ACCOMODATION - ENT Exam ENT Exam: Mucous Membranes Moist, Normal Exam - Neck Exam Neck Exam: Full ROM, Normal Inspection - Respiratory Exam Respiratory Exam: Clear to Ausculation Bilateral, NORMAL BREATHING PATTERN. absent: Rales, Rhonchi, Wheezes - Cardiovascular Exam Cardiovascular Exam: REGULAR RHYTHM, RRR, +S1, +S2. absent: JVD - GI/Abdominal Exam GI & Abdominal Exam: Distended, Soft, Normal Bowel Sounds. absent: Guarding, Rigid, Rebound - Rectal Exam Rectal Exam: Deferred - Extremities Exam Extremities Exam: Full ROM, Normal Capillary Refill, Normal Inspection. absent : Calf Tenderness, Pedal Edema - Back Exam Back Exam: NORMAL INSPECTION - Neurological Exam Neurological Exam: Alert, Awake, CN II-XII Intact, Oriented x3 - Psychiatric Exam Psychiatric exam: Normal Affect, Normal Mood - Skin Skin Exam: Intact, Normal Color, Warm Assessment and Plan - Assessment and Plan (Free Text) Assessment: 37 y/o female with no significant PMH presented to ER complaining of 5 day history of right flank pain radiating to her RLQ associated with fever ,watery diarrhea, nausea , vomiting. Patient states that pain is dull like, improved with tylenol, denies any urinary symptoms, dysuria, frequency. She gives history of 17 years ago and complains of abdominal distention for the past 2 years. 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 In ER found to be febrile Tmax 101.3, WBC 13 lactate 2.2 Na 128 K [address] abdomen and pelvis showed :Colonic wall thickening on the right with adjacent inflammatory changes and small free fluid. The appendix is not identified. Extensive inflammatory changes which may be related to phlegmonous change/ developing abscess evident within right lower quadrant. Several foci of gas are noted in this region which are not clearly intraluminal. Appearance suspicious for loculated extra luminal gas, however free air cannot be entirely excluded. Correlate clinically for possibility of acute appendicitis/ruptured appendix. 21.3 x 26.4 cm cystic mass within the right mid pelvis of unclear etiology, possibly ovarian in origin. Hepatomegaly. Hepatic steatosis. Patchy right lower lobe atelectasis/infiltrates. Patient admitted in ICU for sepsis secondary to intra abdominal pathology. Surgery and Hoe Worker consulted . She was started on IV vanco and zosyn for possible intra abdominal pathology . She was transfused 2 unit PRBC for anemia . At present transferred to telemetry , feeling better, pain resolved . Pelvis US showed:Unremarkable uterus and right ovary. Left adnexa is not visualized likely obscured common displaced by the large pelvic mass. Cystic pelvic mass incompletely visualize confirms findings on recent CT scan. This cannot be identified as originating from either the uterus or either adnexa. MRI abd and pelvis: Re- demonstration of large cystic mass lesion extending from the pelvis to the upper abdomen noted anterior to the uterus. 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 No evidence of thick septation or enhancing solid component in this cystic lesion. The uterus and the urinary bladder are displaced inferiorly. The right ovary is grossly unremarkable. Well defined thin wall cystic lesions/ cystic implant noted at the right mid abdomen adjacent to the inferior border of the liver of uncertain etiology. Differential consideration includes mesenteric implants from malignant neoplasm such as ovarian cancer. Inflammatory changes and heterogeneous enhancement noted in the right mid abdomen adjacent to the cecum of uncertain etiology. Correlate clinically for possible appendicitis or omental caking. Suspicious for mild omental thickening and enhancement at the mid and anterior aspect of the abdomen. The possibility of malignant neoplasm should be excluded. Re- demonstration of large cystic lesion extending from the pelvis. For OR today with Dr. Nelson and Dr. De La Rosa for mass removal 1.Sepsis unclear etiology most likely secondary to intra abdominal pathology unlikely appendicitis Patient was tachycardic , Tmax 101.3 WBC 13 k lactate 2.2 on admission and was admitted to ICU initially Obstructive series showed no free air IVF hydration ID consulted : Dr Manuel Garza, Zosyn IV Surgery and Hoe Worker consulted blood cx and urine cx with no growth so far elevated Procalcitonin CA125 - elevated HIV test negative MRI and Ct abdomen showed large cystic mass . For Or today for removal of the mass by and Dr. De La Rosa 2. 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 Hyponatremia most likely volume depleted due to diarrhea improved with IVF 4. Diarrhea Stool work up - culture, WBC, O/P, C Diff: negative started empiric PO Flagyl 5. Azotemia- resolved Most likely prerenal given IVF 6. Anemia of chronic disease and iron deficiency Hgb dropped from 7.5 to 6.6 Transfused 3 unit PRBc Anemia work up showed very low iron stores . Started Venofer IV Hgb 9.3 today 7. Quantiferon + no resp sxs CXR : negative Pulm consult ID on comnsult on respiratory isolation DVt prophylaxis SCD Lovenox on hold for OR today
[2017-09-08] MEDS ORDERED: Bupivacaine 0.5% Inj(30mL) ONE (10:34)
[2017-09-08] MEDS ORDERED: ceFAZolin IV 1 gm in Dextrose 2 GM/100 ML BAG IVPB ONE (10:34)
[2017-09-08] MEDS ORDERED: Lidocaine 1% Inj (20ml) ONE (10:34)
[2017-09-08] MEDS ORDERED: Propofol 10 mg/ml Inj (20 ML) ONE (10:35)
[2017-09-08] MEDS ORDERED: Midazolam 2 MG/2 ML VIAL ONE (10:35)
[2017-09-08] MEDS ORDERED: Rocuronium 10 mg/ml (5 ml) ONE ×2 (10:37→11:10)
[2017-09-08] MEDS ORDERED: Lactated Ringer's 1,000 ML IV ONE ×2 (11:13→12:00)
[2017-09-08] MEDS ORDERED: Bupivacaine HCl 0.25% PF (10 ml) Inj ONE (11:41)
[2017-09-08] MEDS ORDERED: Bupivacaine HCl 0.25% PF (30 ml) Inj ONE (11:41)
[2017-09-08] MEDS ORDERED: Dexamethasone 4 mg/1 ml ONE (11:47)
--- NOTE | 2017-09-08 12:44 | PCM.SURG1 ---
Surgeon's Initial Post Op Note - Surgeon's Notes Surgeon: Dr. Nelson Tanker Driver: Dr. Collado PGY2, Dr. Rock PGY3 Type of Anesthesia: General Endo Pre-Operative Diagnosis: Pelvic Mass Operative Findings: See Operative Dictation Post-Operative Diagnosis: Pelvic Mass, Ruptured Acute Appendicitis Operation Performed: Left Oopherectomy, Drainage of intra-abdominal and retroperitoneal abscess with culture and sensativity Specimen/Specimens Removed: Left Ovarian cyst Estimated Blood Loss: EBL {In ML}: 10 Blood Products Given: N/A Drains Used: Bryan Post-Op Condition: Good Date of Surgery/Procedure: 09/08/17 Time of Surgery/Procedure: 12:45
[2017-09-08] MEDS: HYDROmorphone 0.5 mg/0.5 ml ISec IVP PRN ×4 (12:48→13:35)
--- NOTE | 2017-09-08 12:49 | PCM.ANESB5 ---
Transverse Abdominis Block - Transverse Abdominis Plane Date of Procedure: 09/08/17 Anesthesiologist: Juaquin Suazo Pre-Procedure Diagnosis: ex-lap Post-Procedure Diagnosis: same - Procedure Transverse Abdominis Plane Nerve Block: The procedure was explained to the patient that it is for post-operative pain management and would be performed after surgery. Consent was obtained prior to surgery after a thorough discussion with the patient regarding the benefits and possible complications of transverse abdominis plane block. After the surgery had concluded and before the patient emerged from general anesthesia, time-out was held with the circulating nurse to re-confirm the appropriate block. With the patient in supine position, the ultrasound probe was placed transverse to the abdominal wall at the mid-axillary line above the iliac crest of the appropriate side. The skin, subcutaneous tissue, fat, external oblique muscle, internal oblique muscle, and the transverse abdominis muscle were identified. The general area of the block site was then prepped with Betadine three times. At this point, a # 21-gauge Stimuplex 4-inch needle was inserted posterior to and in plane with the ultrasound probe and directed anteriorly. Needle was advanced under direct ultrasound visualization until it reached the plane between the internal oblique and transverse abdominis muscles. After appropriate placement, 2mL of local anesthetic solution was injected. When the transverse abdominis plane was observed expanding in an ellipsoid way, the rest of the solution was slowly injected. A total of _40 mL of _0.25____ % __ bupiv was used for this block. The needle was then removed and sterile dressing was applied. Similarly, the same procedure was performed on the other side using the same medications. The patient had stable vital signs throughout and had no untoward complications after emergence from general anesthesia in the recovery room.
--- NOTE | 2017-09-08 20:27 | CP.PCM.CON ---
History of Present Illness - History of Present Illness History of Present Illness: Call to see patient with a positive Quanteferon test. No Pulmonary sx whatsoever. From [facility], endmic place for TB Normal xray. Neg physican findings. LAtent TB:\ Treat with INH and B6 for 9 months with periodic cheching of LFT's. Signing out of case. Past Patient History - Infectious Disease Hx of Infectious Diseases: None - Tetanus Immunizations Tetanus Immunization: Unknown - Past Medical History & Family History Past Medical History?: No Past Family History: Reviewed and not pertinent - Past Social History Smoking Status: Never Smoked Chewing Tobacco Use: No Cigar Use: No Alcohol: None Drugs: Denies Home Situation {Lives}: Friends Domestic Violence: Negative - CARDIAC Hx Cardiac Disorders: No - PULMONARY Hx Respiratory Disorders: No - NEUROLOGICAL Hx Neurological Disorder: No - HEENT Hx HEENT Problems: No - RENAL Hx Chronic Kidney Disease: No - ENDOCRINE/METABOLIC Hx Endocrine Disorders: No - HEMATOLOGICAL/ONCOLOGICAL Hx Blood Disorders: No - INTEGUMENTARY Hx Dermatological Problems: No - MUSCULOSKELETAL/RHEUMATOLOGICAL Hx Musculoskeletal Disorders: No Hx Falls: No - GASTROINTESTINAL Hx Gastrointestinal Disorders: No - GENITOURINARY/GYNECOLOGICAL Other/Comment: hx of miscarriage - LMP January 2014 - PSYCHIATRIC Hx Substance Use: No - SURGICAL HISTORY Hx Surgeries: No - ANESTHESIA Hx Anesthesia: Yes Hx Anesthesia Reactions: No Hx Malignant Hyperthermia: No Meds Allergies/Adverse Reactions: Allergies Allergy/AdvReac Type Severity Reaction Status Date / Time No Known Allergies Allergy Verified 05/13/14 09:58 - Medications Medications: Current Medications Acetaminophen (Tylenol 325mg Tab) 650 mg PO Q6H PRN PRN Reason: Pain, Mild (1-3) Last Admin: 09/04/17 17:06 Dose: 650 mg Acetaminophen (Tylenol 325mg Tab) 650 mg PO Q6H PRN PRN Reason: Fever >100.4 F Last Admin: 09/03/17 12:43 Dose: 650 mg Acetaminophen (Tylenol 650 Mg Supp) 650 mg SD Q4 PRN PRN Reason: Fever >100.4 F Last Admin: 08/31/17 00:10 Dose: 650 mg Enoxaparin Sodium (Lovenox) 40 mg SC DAILY [facility] PRN Reason: Protocol Last Admin: 09/06/17 09:40 Dose: 40 mg Hydromorphone HCl (Dilaudid 0.2 Mg/Ml Hot Stick Man) 0 mg IV PRN PRN; Protocol PRN Reason: Pain, moderate (4-7) Last Admin: 09/08/17 13:55 Dose: 6 mg Piperacillin Sod/Tazobactam (Sod 3.375 gm/ Sodium Chloride) 100 mls @ 100 mls/ hr IVPB Q6 [facility] PRN Reason: Protocol Last Admin: 09/08/17 17:22 Dose: 100 mls/hr Vancomycin HCl 1 gm/ Sodium (Chloride) 250 mls @ 166.667 mls/hr IVPB Q12@0500, 1700 [facility] PRN Reason: Protocol Last Admin: 09/08/17 17:33 Dose: 166.667 mls/hr Lactated Ringer's (Lactated Ringer's) 1,000 mls @ 125 mls/hr IV .Q8H [facility] Last Admin: 09/08/17 12:44 Dose: Not Given Lactated Ringer's (Lactated Ringer's) 1,000 mls @ 125 mls/hr IV .Q8H [facility] Last Admin: 09/08/17 15:15 Dose: 125 mls/hr Metronidazole (Flagyl) 500 mg PO Q8 [facility] PRN Reason: Protocol Last Admin: 09/08/17 17:34 Dose: 500 mg Ondansetron HCl (Zofran Inj) 4 mg IVP Q6H PRN PRN Reason: Nausea/Vomiting Pantoprazole Sodium (Protonix Ec Tab) 40 mg PO DAILY [facility] Last Admin: 09/08/17 09:07 Dose: Not Given Results - Vital Signs Recent Vital Signs: Last Vital Signs Temp 97.9 F 09/08/17 20:02 Pulse 88 09/08/17 20:02 Resp 14 09/08/17 20:02 BP 115/79 09/08/17 20:02 Pulse Ox 98 09/08/17 20:02 - Labs Result Diagrams: 09/08/17 05:00 09/08/17 05:00 Labs: Laboratory Results - last 24 hr 09/08/17 09/08/17 09/08/17 05:00 05:00 05:00 WBC 11.2 H RBC 4.37 Hgb 9.3 L Hct 30.0 L MCV 68.5 L MCH 21.2 L MCHC 30.9 L RDW 31.8 H Plt Count 625 H D MPV 6.7 L Neut % (Auto) 75.8 H Lymph % (Auto) 13.5 L [place] % (Auto) 9.4 Eos % (Auto) 0.8 Baso % (Auto) 0.5 Neut # 8.5 H Lymph # 1.5 [place] # 1.0 H Eos # 0.1 Baso # 0.1 PT 15.1 H INR 1.4 H APTT 30.4 Sodium 138 Potassium 4.0 Chloride 102 Carbon Dioxide 29 Anion Gap 11 BUN 5 L Creatinine 0.6 L Est GFR ( Amer) > 60 Est GFR (Non-Af Amer) > 60 Random Glucose 102 Calcium 8.9 Total Bilirubin 0.2 AST 64 H D ALT 36 Alkaline Phosphatase 144 H D Total Protein 6.9 Albumin 3.2 L Globulin 3.8 Albumin/Globulin Ratio 0.8 L Vancomycin Trough Blood Type Antibody Screen Crossmatch BBK History Checked 09/08/17 09/08/17 05:00 05:00 WBC RBC Hgb Hct MCV MCH MCHC RDW Plt Count MPV Neut % (Auto) Lymph % (Auto) [place] % (Auto) Eos % (Auto) Baso % (Auto) Neut # Lymph # [place] # Eos # Baso # PT INR APTT Sodium Potassium Chloride Carbon Dioxide Anion Gap BUN Creatinine Est GFR ( Amer) Est GFR (Non-Af Amer) Random Glucose Calcium Total Bilirubin AST ALT Alkaline Phosphatase Total Protein Albumin Globulin Albumin/Globulin Ratio Vancomycin Trough 10.7 H Blood Type O POSITIVE Antibody Screen Negative Crossmatch See Detail BBK History Checked Patient has bt
[2017-09-08 21:23] LABS: HEPATITIS B SURFACE AG NEGATIVE (NEGATIVE)
[2017-09-08 21:29] LABS: HEPATITIS A IGM NEGATIVE (NEGATIVE); HEPATITIS B CORE AB Negative (NEGATIVE)
[2017-09-08 21:40] LABS: HEPATITIS C ANTIBODY Negative (NEGATIVE)
[2017-09-09] MEDS: Piperacillin/Tazobact 3.375 GM in Sodium Chloride 0.9% 100 ML IVPB SCH ×4 (04:51→23:20)
[2017-09-09] MEDS: Lactated Ringer's 1,000 ML IV SCH ×6 (05:00→23:22)
[2017-09-09 05:47] LABS: BASO # 0.1 K/uL (0.0-0.2); BASO % 0.4 % (0.0-2.0); HEMOGLOBIN 8.9 g/dL (12.0-16.0); LYMPH # 1.3 K/uL (1.0-4.3); LYMPH % 9.2 % (20.0-40.0); MEAN CELL VOLUME 69.4 fl (81.0-99.0); MEAN CORPUSCULAR HEMOGLOBIN 21.7 pg (27.0-31.0); MEAN CORPUSCULAR HGB CONC 31.3 g/dL (33.0-37.0); MONO # 0.8 K/uL (0.0-0.8); MONO % 5.9 % (0.0-10.0); NEUT # 11.6 K/uL (1.8-7.0); NEUT % 84.5 % (50.0-75.0); NRBC % 0.1 % (0.0-0.0); PLATELET COUNT 660 K/uL (130-400); RBC 4.11 Mil/uL (3.80-5.20); RED CELL DISTRIBUTION WIDTH 31.7 % (11.5-14.5); WHITE BLOOD COUNT 13.8 K/uL (4.8-10.8)
[2017-09-09 07:21] LABS: BLOOD UREA NITROGEN 9 mg/dl (7-17); CALCIUM 8.8 mg/dL (8.4-10.2); GFR AFRICAN-AMERICAN > 60; GFR NON-AFRICAN AMERICAN > 60
--- NOTE | 2017-09-09 07:59 | CP.PCM.PN ---
Subjective - Date & Time of Evaluation Date of Evaluation: 09/09/17 Time of Evaluation: 07:55 - Subjective Subjective: General Surgery Progress Note for Dr. Nelson This patient was seen and examined this AM at bedside no acute events to report overnight. Patient is in good spirits reports that she feels significantly better this AM. Since the OR she has used 3.4mg of dilaudid through her [employer] only .4 of which was used in the last 12 hours. Her joanna drain put out 45cc serosang since the OR. She denies any nausea or vomiting she is tolerating her clear liquid diet. She had 700cc of clear urine in her fritz. She denies flatus or BM since the OR. Denies any SOB, or CP. Objective - Vital Signs/Intake and Output Vital Signs (last 24 hours): Temp Pulse Resp BP Pulse Ox 97.9 F 66 18 102/63 96 09/09/17 05:25 09/09/17 05:25 09/09/17 05:25 09/09/17 05:25 09/09/17 05:25 Intake and Output: 09/09/17 09/09/17 06:59 18:59 Intake Total 2075 Output Total 725 Balance 1350 - Medications Medications: Current Medications Acetaminophen (Tylenol 325mg Tab) 650 mg PO Q6H PRN PRN Reason: Pain, Mild (1-3) Last Admin: 09/04/17 17:06 Dose: 650 mg Acetaminophen (Tylenol 325mg Tab) 650 mg PO Q6H PRN PRN Reason: Fever >100.4 F Last Admin: 09/03/17 12:43 Dose: 650 mg Acetaminophen (Tylenol 650 Mg Supp) 650 mg GA Q4 PRN PRN Reason: Fever >100.4 F Last Admin: 08/31/17 00:10 Dose: 650 mg Enoxaparin Sodium (Lovenox) 40 mg SC DAILY [facility] PRN Reason: Protocol Last Admin: 09/06/17 09:40 Dose: 40 mg Hydromorphone HCl (Dilaudid 0.2 Mg/Ml Order Checker Packer Processer) 0 mg IV PRN PRN; Protocol PRN Reason: Pain, moderate (4-7) Last Admin: 09/08/17 13:55 Dose: 6 mg Piperacillin Sod/Tazobactam (Sod 3.375 gm/ Sodium Chloride) 100 mls @ 100 mls/ hr IVPB Q6 [facility] PRN Reason: Protocol Last Admin: 09/09/17 04:51 Dose: 100 mls/hr Vancomycin HCl 1 gm/ Sodium (Chloride) 250 mls @ 166.667 mls/hr IVPB Q12@0500, 1700 [facility]A PRN Reason: Protocol Last Admin: 09/09/17 04:52 Dose: 166.667 mls/hr Lactated Ringer's (Lactated Ringer's) 1,000 mls @ 125 mls/hr IV .Q8H [facility] Last Admin: 09/09/17 06:27 Dose: Not Given Lactated Ringer's (Lactated Ringer's) 1,000 mls @ 125 mls/hr IV .Q8H [facility] Last Admin: 09/09/17 05:00 Dose: Not Given Metronidazole (Flagyl) 500 mg PO Q8 [facility] PRN Reason: Protocol Last Admin: 09/09/17 00:42 Dose: 500 mg Ondansetron HCl (Zofran Inj) 4 mg IVP Q6H PRN PRN Reason: Nausea/Vomiting Pantoprazole Sodium (Protonix Ec Tab) 40 mg PO DAILY [facility] Last Admin: 09/08/17 09:07 Dose: Not Given - Labs Labs: 09/09/17 05:10 09/09/17 05:10 PT 15.1 Seconds (9.8-13.1) H 09/08/17 05:00 INR 1.4 (0.9-1.2) H 09/08/17 05:00 APTT 30.4 Seconds (25.6-37.1) 09/08/17 05:00 - Constitutional Appears: Non-toxic, No Acute Distress - Head Exam Head Exam: ATRAUMATIC, NORMOCEPHALIC - Eye Exam Eye Exam: EOMI, Normal appearance - ENT Exam ENT Exam: Mucous Membranes Moist - Respiratory Exam Respiratory Exam: NORMAL BREATHING PATTERN - Cardiovascular Exam Cardiovascular Exam: REGULAR RHYTHM, +S1, +S2 - GI/Abdominal Exam GI & Abdominal Exam: Soft. absent: Distended, Firm, Guarding, Rigid, Tenderness Additional comments: Dressing clean dry and intact, joanna drain with 45cc serosanguinous fluid. - Exam Additional comments: Fritz catheter in place - Neurological Exam Neurological Exam: Alert, Awake - Psychiatric Exam Psychiatric exam: Normal Affect, Normal Mood - Skin Skin Exam: Dry, Intact Assessment and Plan - Assessment and Plan (Free Text) Assessment: This is a 37F with a ruptured appendicitis POD#1 s/p ex-lap ovarian cyst removal Vital Signs stable Leukocytosis 13.8 from 11.2 likely reactive from surgery, continue ABX Urine output WNL - Discontinue fritz catheterization Joanna drain output minimal non purulent - will DC drain Out of bed to chair Incentive Spirometry Lovenox for DVT prophalaxis Full liquid diet possible advance to regular by by evening vs tomorrow Follow up cultures and sensitivities Monitor Bowel Function Discussed with Dr. Leslie Collado PGY2
[2017-09-09] MEDS: Pantoprazole 40 mg EC Tab PO SCH (09:01)
[2017-09-09] MEDS: Enoxaparin 40 mg Syringe SC SCH (09:02)
[2017-09-09 09:14] LABS: ANISOCYTOSIS MARKED; BANDS 3 % (0-2); LYMPHOCYTE 10 % (20-50); METAMYELOCYTE 1 % (0-0); MONOCYTE 7 % (0-10); NEUTROPHIL 79 % (42-75); PLATELET ESTIMATE INCREASED (NORMAL); POIKILOCYTOSIS MODERATE; TOTAL CELLS COUNTED 100
[2017-09-09 09:15] LABS: HYPOCHROMIC SLIGHT; LARGE PLATELETS PRESENT; MICROCYTOSIS SLIGHT; OVALOCYTES SLIGHT; SCHISTOCYTES SLIGHT
--- NOTE | 2017-09-09 13:20 | CP.PCM.PN ---
Subjective - Date & Time of Evaluation Date of Evaluation: 09/09/17 Time of Evaluation: 09:00 - Subjective Subjective: events noted ruptured appendix + ovarian cyst rx in [place] Objective - Vital Signs/Intake and Output Vital Signs (last 24 hours): Temp Pulse Resp BP Pulse Ox 97.7 F 68 14 100/66 98 09/09/17 12:23 09/09/17 12:23 09/09/17 12:23 09/09/17 12:23 09/09/17 12:23 Intake and Output: 09/09/17 09/09/17 06:59 18:59 Intake Total 2075 Output Total 725 Balance 1350 - Medications Medications: Current Medications Acetaminophen (Tylenol 325mg Tab) 650 mg PO Q6H PRN PRN Reason: Pain, Mild (1-3) Last Admin: 09/04/17 17:06 Dose: 650 mg Acetaminophen (Tylenol 325mg Tab) 650 mg PO Q6H PRN PRN Reason: Fever >100.4 F Last Admin: 09/03/17 12:43 Dose: 650 mg Acetaminophen (Tylenol 650 Mg Supp) 650 mg MT Q4 PRN PRN Reason: Fever >100.4 F Last Admin: 08/31/17 00:10 Dose: 650 mg Enoxaparin Sodium (Lovenox) 40 mg SC DAILY [facility] PRN Reason: Protocol Last Admin: 09/09/17 09:02 Dose: 40 mg Piperacillin Sod/Tazobactam (Sod 3.375 gm/ Sodium Chloride) 100 mls @ 100 mls/ hr IVPB Q6 [facility] PRN Reason: Protocol Last Admin: 09/09/17 09:00 Dose: 100 mls/hr Vancomycin HCl 1 gm/ Sodium (Chloride) 250 mls @ 166.667 mls/hr IVPB Q12@0500, 1700 [facility] PRN Reason: Protocol Last Admin: 09/09/17 04:52 Dose: 166.667 mls/hr Lactated Ringer's (Lactated Ringer's) 1,000 mls @ 125 mls/hr IV .Q8H [facility] Last Admin: 09/09/17 12:39 Dose: 125 mls/hr Lactated Ringer's (Lactated Ringer's) 1,000 mls @ 125 mls/hr IV .Q8H [facility] Last Admin: 09/09/17 12:40 Dose: Not Given Metronidazole (Flagyl) 500 mg PO Q8 [facility] PRN Reason: Protocol Last Admin: 09/09/17 09:01 Dose: 500 mg Ondansetron HCl (Zofran Inj) 4 mg IVP Q6H PRN PRN Reason: Nausea/Vomiting Pantoprazole Sodium (Protonix Ec Tab) 40 mg PO DAILY [facility] Last Admin: 09/09/17 09:01 Dose: 40 mg - Labs Labs: 09/09/17 05:10 09/09/17 05:10 PT 15.1 Seconds (9.8-13.1) H 09/08/17 05:00 INR 1.4 (0.9-1.2) H 09/08/17 05:00 APTT 30.4 Seconds (25.6-37.1) 09/08/17 05:00 - Constitutional Appears: Non-toxic - Head Exam Head Exam: NORMOCEPHALIC - Eye Exam Eye Exam: absent: Scleral icterus - ENT Exam ENT Exam: Mucous Membranes Dry - Neck Exam Neck Exam: absent: Lymphadenopathy - Respiratory Exam Respiratory Exam: Decreased Breath Sounds - Cardiovascular Exam Cardiovascular Exam: REGULAR RHYTHM - GI/Abdominal Exam GI & Abdominal Exam: Distended, Soft, Tenderness Assessment and Plan (1) Ovarian mass Status: Acute
--- NOTE | 2017-09-09 14:50 | CP.PCM.PN ---
Subjective - Date & Time of Evaluation Date of Evaluation: 09/09/17 Time of Evaluation: 14:00 - Subjective Subjective: Patient was seen and examined . Feeling better. Sitting in chair and ambulating . No acute issues overnight Hemodynamically stable, afebrile Tolerating liquid diet LOBO drain to RLQ with minimal serosanguinous output removed by surgery Pain is controlled. GROUP HOME COUNSELOR pump discontinued [place] removed Objective - Vital Signs/Intake and Output Vital Signs (last 24 hours): Temp Pulse Resp BP Pulse Ox 97.7 F 68 14 100/66 98 09/09/17 12:23 09/09/17 12:23 09/09/17 12:23 09/09/17 12:23 09/09/17 12:23 Intake and Output: 09/09/17 09/09/17 06:59 18:59 Intake Total 2075 Output Total 725 Balance 1350 - Medications Medications: Current Medications Acetaminophen (Tylenol 325mg Tab) 650 mg PO Q6H PRN PRN Reason: Pain, Mild (1-3) Last Admin: 09/04/17 17:06 Dose: 650 mg Acetaminophen (Tylenol 325mg Tab) 650 mg PO Q6H PRN PRN Reason: Fever >100.4 F Last Admin: 09/03/17 12:43 Dose: 650 mg Acetaminophen (Tylenol 650 Mg Supp) 650 mg [place] Q4 PRN PRN Reason: Fever >100.4 F Last Admin: 08/31/17 00:10 Dose: 650 mg Enoxaparin Sodium (Lovenox) 40 mg SC DAILY [facility] PRN Reason: Protocol Last Admin: 09/09/17 09:02 Dose: 40 mg Piperacillin Sod/Tazobactam (Sod 3.375 gm/ Sodium Chloride) 100 mls @ 100 mls/ hr IVPB Q6 [facility] PRN Reason: Protocol Last Admin: 09/09/17 09:00 Dose: 100 mls/hr Vancomycin HCl 1 gm/ Sodium (Chloride) 250 mls @ 166.667 mls/hr IVPB Q12@0500, 1700 [facility] PRN Reason: Protocol Last Admin: 09/09/17 04:52 Dose: 166.667 mls/hr Lactated Ringer's (Lactated Ringer's) 1,000 mls @ 125 mls/hr IV .Q8H [facility] Last Admin: 09/09/17 12:39 Dose: 125 mls/hr Lactated Ringer's (Lactated Ringer's) 1,000 mls @ 125 mls/hr IV .Q8H [facility] Last Admin: 09/09/17 12:40 Dose: Not Given Metronidazole (Flagyl) 500 mg PO Q8 [facility] PRN Reason: Protocol Last Admin: 09/09/17 09:01 Dose: 500 mg Ondansetron HCl (Zofran Inj) 4 mg IVP Q6H PRN PRN Reason: Nausea/Vomiting Oxycodone/Acetaminophen (Percocet 5/325 Mg Tab) 1 tab PO Q4 PRN PRN Reason: Pain, moderate (4-7) Stop: 09/12/17 14:49 Pantoprazole Sodium (Protonix Ec Tab) 40 mg PO DAILY [facility] Last Admin: 09/09/17 09:01 Dose: 40 mg - Labs Labs: 09/09/17 05:10 09/09/17 05:10 PT 15.1 Seconds (9.8-13.1) H 09/08/17 05:00 INR 1.4 (0.9-1.2) H 09/08/17 05:00 APTT 30.4 Seconds (25.6-37.1) 09/08/17 05:00 - Constitutional Appears: Non-toxic, No Acute Distress - Head Exam Head Exam: ATRAUMATIC, NORMAL INSPECTION, NORMOCEPHALIC - Eye Exam Eye Exam: EOMI, Normal appearance, PERRL Pupil Exam: NORMAL ACCOMODATION - ENT Exam ENT Exam: Mucous Membranes Moist, Normal Exam - Neck Exam Neck Exam: Full ROM, Normal Inspection - Respiratory Exam Respiratory Exam: Clear to Ausculation Bilateral, NORMAL BREATHING PATTERN. absent: Rales, Rhonchi, Wheezes, Respiratory Distress - Cardiovascular Exam Cardiovascular Exam: REGULAR RHYTHM, RRR, +S1, +S2. absent: JVD - GI/Abdominal Exam GI & Abdominal Exam: Soft, Normal Bowel Sounds. absent: Guarding, Rebound Additional comments: midline surgical incision with dressing , clean and intact - Rectal Exam Rectal Exam: Deferred - Extremities Exam Extremities Exam: Full ROM, Normal Capillary Refill, Normal Inspection. absent : Calf Tenderness, Pedal Edema - Back Exam Back Exam: NORMAL INSPECTION - Neurological Exam Neurological Exam: Alert, Awake, CN II-XII Intact, Oriented x3 - Psychiatric Exam Psychiatric exam: Normal Affect, Normal Mood - Skin Skin Exam: Dry, Pallor, Warm Assessment and Plan - Assessment and Plan (Free Text) Assessment: 37 y/o female with no significant PMH presented to ER complaining of 5 day history of right flank pain radiating to her RLQ associated with fever ,watery diarrhea, nausea , vomiting. Patient states that pain is dull like, improved with tylenol, denies any urinary symptoms, dysuria, frequency. She gives history of 17 years ago and complains of abdominal distention for the past 2 years. 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 In ER found to be febrile Tmax 101.3, WBC 13 lactate 2.2 Na 128 K [address] abdomen and pelvis showed :Colonic wall thickening on the right with adjacent inflammatory changes and small free fluid. The appendix is not identified. Extensive inflammatory changes which may be related to phlegmonous change/ developing abscess evident within right lower quadrant. Several foci of gas are noted in this region which are not clearly intraluminal. Appearance suspicious for loculated extra luminal gas, however free air cannot be entirely excluded. Correlate clinically for possibility of acute appendicitis/ruptured appendix. 21.3 x 26.4 cm cystic mass within the right mid pelvis of unclear etiology, possibly ovarian in origin. Hepatomegaly. Hepatic steatosis. Patchy right lower lobe atelectasis/infiltrates. Patient admitted in ICU for sepsis secondary to intra abdominal pathology. Surgery and Roll Builder consulted . She was started on IV vanco and zosyn for possible intra abdominal infection . She was transfused 2 unit PRBC for anemia . further imaging were performed to better identify the pelvic mass and its origin. Pelvis US showed:Unremarkable uterus and right ovary. Left adnexa is not visualized likely obscured common displaced by the large pelvic mass. Cystic pelvic mass incompletely visualize confirms findings on recent CT scan. This cannot be identified as originating from either the uterus or either adnexa. MRI abd and pelvis showed Re- demonstration of large cystic mass lesion extending from the pelvis to the upper abdomen noted anterior to the uterus. 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 No evidence of thick septation or enhancing solid component in this cystic lesion. The uterus and the urinary bladder are displaced inferiorly. The right ovary is grossly unremarkable. Well defined thin wall cystic lesions/ cystic implant noted at the right mid abdomen adjacent to the inferior border of the liver of uncertain etiology. Differential consideration includes mesenteric implants from malignant neoplasm such as ovarian cancer. Inflammatory changes and heterogeneous enhancement noted in the right mid abdomen adjacent to the cecum of uncertain etiology. Correlate clinically for possible appendicitis or omental caking. Suspicious for mild omental thickening and enhancement at the mid and anterior aspect of the abdomen. The possibility of malignant neoplasm should be excluded. Re- demonstration of large cystic lesion extending from the pelvis. Patient clinically showed improvement after IV antibiotics.Dr. De La Rosa and Dr. Nelson were consulted on the case for possible surgery . Patient taken to OR for exploratory laparatomy and a large ovarian cyst was removed ( Approximately 50 cm in diameter ) with left oophorectomy .Intra operatively noted that patient had a perforated appendicitis with pus and drainage of intra and retroperitonal abscess performed with LOBO drain placement to RLQ. Today post op day 1 , patient doing well, hemodynamically stable, pain is controlled, tolerating liquid diet , ambulating . 1.Sepsis most likely secondary to perforated acute appendicitis seen during exploratory laparatomy Patient was tachycardic , Tmax 101.3 WBC 13 k lactate 2.2 on admission and was admitted to ICU initially s/p drainage of intra and retroperitoneal abscess with LOBO drain placement . Cultures sent ID on consult ,Jose F Patel IV Surgery and Roll Builder consulted blood cx and urine cx with no growth so far 2. 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 Castro). Pending official pathology report d/c GROUP HOME COUNSELOR pump andstrat Morphin eiV and percoset PRN for pain promote ambulation Tolerating liquid diet LOBO drain removed today Incentive spirometry Lovenox for DVT prophylaxis 3. Anemia of chronic disease and iron deficiency Transfused 3 unit PRBc Anemia work up showed very low iron stores . Started Venofer IV Hgb 8.9 today 4. Hyponatremia most likely volume depleted due to diarrhea improved with IVF 5. Diarrhea Stool work up - culture, WBC, O/P, C Diff: negative started empiric PO Flagyl resolved 6. Azotemia- resolved Most likely prerenal given IVF 7. Quantiferon + no resp sxs CXR : negative Pulm consult ID on consult on respiratory isolation ? 8.DVt prophylaxis SCD Lovenox
[2017-09-09] MEDS: Oxycodone/Acetaminophen 5/325 mg Tab PO PRN (20:23)
[2017-09-10] MEDS: Oxycodone/Acetaminophen 5/325 mg Tab PO PRN ×3 (00:53→13:32)
[2017-09-10] MEDS: Piperacillin/Tazobact 3.375 GM in Sodium Chloride 0.9% 100 ML IVPB SCH ×4 (05:10→21:12)
[2017-09-10] MEDS: Lactated Ringer's 1,000 ML IV SCH ×6 (05:23→21:20)
[2017-09-10 06:38] LABS: HEMOGLOBIN 8.3 g/dL (12.0-16.0); MEAN CELL VOLUME 69.3 fl (81.0-99.0); MEAN CORPUSCULAR HEMOGLOBIN 21.2 pg (27.0-31.0); MEAN CORPUSCULAR HGB CONC 30.6 g/dL (33.0-37.0); RBC 3.9 Mil/uL (3.80-5.20); RED CELL DISTRIBUTION WIDTH 32.3 % (11.5-14.5); WHITE BLOOD COUNT 9.1 K/uL (4.8-10.8)
[2017-09-10 07:05] LABS: ALB/GLOB RATIO 0.8 (1.0-2.1); ALBUMIN 2.7 g/dL (3.5-5.0); ALT/SGPT 30 U/L (9-52); AST/SGOT 36 U/L (14-36); BLOOD UREA NITROGEN 8 mg/dl (7-17); CALCIUM 8.6 mg/dL (8.4-10.2); GFR AFRICAN-AMERICAN > 60; GFR NON-AFRICAN AMERICAN > 60
--- NOTE | 2017-09-10 08:26 | CP.PCM.PN ---
Subjective - Date & Time of Evaluation Date of Evaluation: 09/10/17 Time of Evaluation: 06:45 - Subjective Subjective: General surgery progress note for Dr. Linwood Storm, PGY-1 Pt S & E at bedside. Pt reports abdominal pain continues, is requiring consistent pain medication overnight as per nursing. Tolerating FLD, denies N & V. Denies F & C, BM, flatus. Is OOBTC, voiding freely. No other complaints. Objective - Vital Signs/Intake and Output Vital Signs (last 24 hours): Temp Pulse Resp BP Pulse Ox 97.1 F L 72 20 109/71 96 09/10/17 08:09 09/10/17 08:09 09/10/17 08:09 09/10/17 08:09 09/10/17 08:09 - Medications Medications: Current Medications Acetaminophen (Tylenol 325mg Tab) 650 mg PO Q6H PRN PRN Reason: Pain, Mild (1-3) Last Admin: 09/04/17 17:06 Dose: 650 mg Acetaminophen (Tylenol 325mg Tab) 650 mg PO Q6H PRN PRN Reason: Fever >100.4 F Last Admin: 09/03/17 12:43 Dose: 650 mg Acetaminophen (Tylenol 650 Mg Supp) 650 mg [place] Q4 PRN PRN Reason: Fever >100.4 F Last Admin: 08/31/17 00:10 Dose: 650 mg Enoxaparin Sodium (Lovenox) 40 mg SC DAILY [facility]A PRN Reason: Protocol Last Admin: 09/09/17 09:02 Dose: 40 mg Piperacillin Sod/Tazobactam (Sod 3.375 gm/ Sodium Chloride) 100 mls @ 100 mls/ hr IVPB Q6 [facility] PRN Reason: Protocol Last Admin: 09/10/17 05:10 Dose: 100 mls/hr Vancomycin HCl 1 gm/ Sodium (Chloride) 250 mls @ 166.667 mls/hr IVPB Q12@0500, 1700 [facility] PRN Reason: Protocol Last Admin: 09/10/17 05:11 Dose: 166.667 mls/hr Lactated Ringer's (Lactated Ringer's) 1,000 mls @ 125 mls/hr IV .Q8H [facility] Last Admin: 09/10/17 05:23 Dose: 125 mls/hr Lactated Ringer's (Lactated Ringer's) 1,000 mls @ 125 mls/hr IV .Q8H [facility] Last Admin: 09/10/17 05:24 Dose: Not Given Metronidazole (Flagyl) 500 mg PO Q8 [facility] PRN Reason: Protocol Last Admin: 09/10/17 00:53 Dose: 500 mg Ondansetron HCl (Zofran Inj) 4 mg IVP Q6H PRN PRN Reason: Nausea/Vomiting Oxycodone/Acetaminophen (Percocet 5/325 Mg Tab) 1 tab PO Q4 PRN PRN Reason: Pain, moderate (4-7) Stop: 09/12/17 14:49 Last Admin: 09/10/17 05:10 Dose: 1 tab Pantoprazole Sodium (Protonix Ec Tab) 40 mg PO DAILY [facility] Last Admin: 09/09/17 09:01 Dose: 40 mg - Labs Labs: 09/10/17 05:30 09/10/17 05:30 PT 15.1 Seconds (9.8-13.1) H 09/08/17 05:00 INR 1.4 (0.9-1.2) H 09/08/17 05:00 APTT 30.4 Seconds (25.6-37.1) 09/08/17 05:00 - Constitutional Appears: Non-toxic, No Acute Distress - Head Exam Head Exam: ATRAUMATIC, NORMAL INSPECTION, NORMOCEPHALIC - Eye Exam Eye Exam: EOMI, Normal appearance - ENT Exam ENT Exam: Mucous Membranes Moist, Normal Exam - Respiratory Exam Respiratory Exam: NORMAL BREATHING PATTERN - Cardiovascular Exam Cardiovascular Exam: REGULAR RHYTHM, +S1, +S2 - GI/Abdominal Exam GI & Abdominal Exam: Soft, Tenderness (along incision sites), Normal Bowel Sounds. absent: Distended, Firm, Guarding, Rigid, Mass Additional comments: midline dressing with strike through in epigastric area. - Extremities Exam Extremities Exam: Normal Inspection - Neurological Exam Neurological Exam: Alert, Awake, CN II-XII Intact, Oriented x3 - Psychiatric Exam Psychiatric exam: Normal Affect, Normal Mood - Skin Skin Exam: Dry, Intact, Normal Color, Warm Assessment and Plan - Assessment and Plan (Free Text) Assessment: 37F with a ruptured appendicitis POD#2 s/p ex-lap ovarian cyst removal Plan: VSS Leukocytosis resolved, now 9.1 Cont Abx OOBTC Encourage IS use Cont Lovenox for DVT ppx FLD Ducolax suppository Monitor for return of bowel function, will advance diet when pt has bowel function FU cx & sensitivities DW attending Dotty, PGY-1
[2017-09-10] MEDS: Enoxaparin 40 mg Syringe SC SCH (08:51)
[2017-09-10] MEDS: Pantoprazole 40 mg EC Tab PO SCH (08:53)
--- NOTE | 2017-09-10 15:32 | CP.PCM.PN ---
Subjective - Date & Time of Evaluation Date of Evaluation: 09/10/17 Time of Evaluation: 09:00 - Subjective Subjective: Patient seen and examined bedside. Complains of abdominal pain over surgical incision. Still with no bowel movements and not passing flatus. Tolerating liquid diet . Hemodynamically stable, afebroile WBC 9 K Objective - Vital Signs/Intake and Output Vital Signs (last 24 hours): Temp Pulse Resp BP Pulse Ox 98.7 F 76 18 113/74 96 09/10/17 13:00 09/10/17 13:00 09/10/17 13:00 09/10/17 13:00 09/10/17 13:00 - Medications Medications: Current Medications Acetaminophen (Tylenol 325mg Tab) 650 mg PO Q6H PRN PRN Reason: Pain, Mild (1-3) Last Admin: 09/04/17 17:06 Dose: 650 mg Acetaminophen (Tylenol 325mg Tab) 650 mg PO Q6H PRN PRN Reason: Fever >100.4 F Last Admin: 09/03/17 12:43 Dose: 650 mg Acetaminophen (Tylenol 650 Mg Supp) 650 mg [place] Q4 PRN PRN Reason: Fever >100.4 F Last Admin: 08/31/17 00:10 Dose: 650 mg Enoxaparin Sodium (Lovenox) 40 mg SC DAILY [facility] PRN Reason: Protocol Last Admin: 09/10/17 08:51 Dose: 40 mg Piperacillin Sod/Tazobactam (Sod 3.375 gm/ Sodium Chloride) 100 mls @ 100 mls/ hr IVPB Q6 [facility] PRN Reason: Protocol Last Admin: 09/10/17 08:55 Dose: 100 mls/hr Vancomycin HCl 1 gm/ Sodium (Chloride) 250 mls @ 166.667 mls/hr IVPB Q12@0500, 1700 [facility]A PRN Reason: Protocol Last Admin: 09/10/17 05:11 Dose: 166.667 mls/hr Lactated Ringer's (Lactated Ringer's) 1,000 mls @ 125 mls/hr IV .Q8H [facility] Last Admin: 09/10/17 12:20 Dose: 125 mls/hr Lactated Ringer's (Lactated Ringer's) 1,000 mls @ 125 mls/hr IV .Q8H [facility] Last Admin: 09/10/17 12:21 Dose: Not Given Metronidazole (Flagyl) 500 mg PO Q8 [facility] PRN Reason: Protocol Last Admin: 09/10/17 08:51 Dose: 500 mg Ondansetron HCl (Zofran Inj) 4 mg IVP Q6H PRN PRN Reason: Nausea/Vomiting Oxycodone/Acetaminophen (Percocet 5/325 Mg Tab) 1 tab PO Q4 PRN PRN Reason: Pain, moderate (4-7) Stop: 09/12/17 14:49 Last Admin: 09/10/17 13:32 Dose: 1 tab Pantoprazole Sodium (Protonix Ec Tab) 40 mg PO DAILY [facility] Last Admin: 09/10/17 08:53 Dose: 40 mg - Labs Labs: 09/10/17 05:30 09/10/17 05:30 PT 15.1 Seconds (9.8-13.1) H 09/08/17 05:00 INR 1.4 (0.9-1.2) H 09/08/17 05:00 APTT 30.4 Seconds (25.6-37.1) 09/08/17 05:00 - Constitutional Appears: Non-toxic, No Acute Distress - Head Exam Head Exam: ATRAUMATIC, NORMAL INSPECTION, NORMOCEPHALIC - Eye Exam Eye Exam: EOMI, Normal appearance, PERRL Pupil Exam: NORMAL ACCOMODATION - ENT Exam ENT Exam: Mucous Membranes Moist, Normal Exam - Neck Exam Neck Exam: Full ROM, Normal Inspection - Respiratory Exam Respiratory Exam: Clear to Ausculation Bilateral. absent: Rales, Rhonchi, Wheezes - Cardiovascular Exam Cardiovascular Exam: REGULAR RHYTHM, RRR, +S1, +S2. absent: JVD - GI/Abdominal Exam GI & Abdominal Exam: Soft, Tenderness (with palpation over surgical incision ), Hypoactive Bowel Sounds, Normal Bowel Sounds. absent: Distended, Guarding, Rigid - Rectal Exam Rectal Exam: Deferred - Extremities Exam Extremities Exam: Full ROM, Normal Capillary Refill, Normal Inspection. absent : Pedal Edema - Back Exam Back Exam: NORMAL INSPECTION - Neurological Exam Neurological Exam: Alert, Awake, CN II-XII Intact, Oriented x3 - Psychiatric Exam Psychiatric exam: Normal Affect, Normal Mood - Skin Skin Exam: Dry, Intact, Pallor, Warm Assessment and Plan - Assessment and Plan (Free Text) Assessment: 37 y/o female with no significant PMH presented to ER complaining of 5 day history of right flank pain radiating to her RLQ associated with fever ,watery diarrhea, nausea , vomiting. Patient states that pain is dull like, improved with tylenol, denies any urinary symptoms, dysuria, frequency. She gives history of 17 years ago and complains of abdominal distention for the past 2 years. 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 In ER found to be febrile Tmax 101.3, WBC 13 lactate 2.2 Na 128 K 3[address] abdomen and pelvis showed :Colonic wall thickening on the right with adjacent inflammatory changes and small free fluid. The appendix is not identified. Extensive inflammatory changes which may be related to phlegmonous change/ developing abscess evident within right lower quadrant. Several foci of gas are noted in this region which are not clearly intraluminal. Appearance suspicious for loculated extra luminal gas, however free air cannot be entirely excluded. Correlate clinically for possibility of acute appendicitis/ruptured appendix. 21.3 x 26.4 cm cystic mass within the right mid pelvis of unclear etiology, possibly ovarian in origin. Hepatomegaly. Hepatic steatosis. Patchy right lower lobe atelectasis/infiltrates. Patient admitted in ICU for sepsis secondary to intra abdominal pathology. Surgery and Physical Therapy Teacher consulted . She was started on IV vanco and zosyn for possible intra abdominal infection . She was transfused 2 unit PRBC for anemia . further imaging were performed to better identify the pelvic mass and its origin. Pelvis US showed:Unremarkable uterus and right ovary. Left adnexa is not visualized likely obscured common displaced by the large pelvic mass. Cystic pelvic mass incompletely visualize confirms findings on recent CT scan. This cannot be identified as originating from either the uterus or either adnexa. MRI abd and pelvis showed Re- demonstration of large cystic mass lesion extending from the pelvis to the upper abdomen noted anterior to the uterus. 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 No evidence of thick septation or enhancing solid component in this cystic lesion. The uterus and the urinary bladder are displaced inferiorly. The right ovary is grossly unremarkable. Well defined thin wall cystic lesions/ cystic implant noted at the right mid abdomen adjacent to the inferior border of the liver of uncertain etiology. Differential consideration includes mesenteric implants from malignant neoplasm such as ovarian cancer. Inflammatory changes and heterogeneous enhancement noted in the right mid abdomen adjacent to the cecum of uncertain etiology. Correlate clinically for possible appendicitis or omental caking. Suspicious for mild omental thickening and enhancement at the mid and anterior aspect of the abdomen. The possibility of malignant neoplasm should be excluded. Re- demonstration of large cystic lesion extending from the pelvis. Patient clinically showed improvement after IV antibiotics.Dr. De La Rosa and Dr. Nelson were consulted on the case for possible surgery . Patient taken to OR for exploratory laparatomy and a large ovarian cyst was removed ( Approximately 50 cm in diameter ) with left oophorectomy .Intra operatively noted that patient had a perforated appendicitis with pus and drainage of intra and retroperitonal abscess performed with LOBO drain placement to RLQ. Today post op day 2 , patient doing well, hemodynamically stable, pain is controlled, tolerating liquid diet , ambulating . 1.Sepsis most likely secondary to perforated acute appendicitis seen during exploratory laparatomy Patient was tachycardic , Tmax 101.3 WBC 13 k lactate 2.2 on admission and was admitted to ICU initially s/p drainage of intra and retroperitoneal abscess with LOBO drain placement . Cultures sent ID on consult ,Dr Manuel Garza, Zosyn IV and flagyl Surgery and Physical Therapy Teacher consulted blood cx and urine cx with no growth so far 2. 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 Castro). Pending official pathology report [employer] pump discontinued and started Morphine IV and percoset PRN for pain promote ambulation Tolerating liquid diet LOBO drain removed Incentive spirometry Lovenox for DVT prophylaxis Promote ambulation . Will advance diet once patient starts having BM Started dulcolax 3. Anemia of chronic disease and iron deficiency Transfused 3 unit PRBc Anemia work up showed very low iron stores . Started Venofer IV Hgb 8.9 today 4. Hyponatremia most likely volume depleted due to diarrhea improved with IVF 5. Diarrhea Stool work up - culture, WBC, O/P, C Diff: negative on empiric PO Flagyl resolved 6. Azotemia- resolved Most likely prerenal given IVF 7. Quantiferon + no resp sxs CXR : negative Pulm consult ID on consult on respiratory isolation ? 8.DVt prophylaxis SCD Lovenox
[2017-09-11] MEDS ORDERED: guaiFENesin 200 mg/10 ml Syrup UD PO STA (00:26)
[2017-09-11] MEDS: Piperacillin/Tazobact 3.375 GM in Sodium Chloride 0.9% 100 ML IVPB SCH ×4 (03:15→21:13)
[2017-09-11] MEDS: Lactated Ringer's 1,000 ML IV SCH ×6 (04:32→21:15)
[2017-09-11 08:05] LABS: HEMOGLOBIN 8.7 g/dL (12.0-16.0); MEAN CELL VOLUME 70.5 fl (81.0-99.0); MEAN CORPUSCULAR HEMOGLOBIN 21.7 pg (27.0-31.0); MEAN CORPUSCULAR HGB CONC 30.8 g/dL (33.0-37.0); RBC 3.99 Mil/uL (3.80-5.20); RED CELL DISTRIBUTION WIDTH 32.3 % (11.5-14.5); WHITE BLOOD COUNT 9.7 K/uL (4.8-10.8)
[2017-09-11 08:45] LABS: BLOOD UREA NITROGEN 3 mg/dl (7-17); CALCIUM 8.4 mg/dL (8.4-10.2); GFR AFRICAN-AMERICAN > 60; GFR NON-AFRICAN AMERICAN > 60
[2017-09-11] MEDS: Enoxaparin 40 mg Syringe SC SCH (09:17)
[2017-09-11] MEDS: Pantoprazole 40 mg EC Tab PO SCH (09:17)
--- NOTE | 2017-09-11 09:21 | CP.PCM.PN ---
Subjective - Date & Time of Evaluation Date of Evaluation: 09/11/17 Time of Evaluation: 08:30 - Subjective Subjective: General surgery progress note for Dr. Linwood Storm, PGY-1 Pt S & E at bedside. Pt reports abdominal pain continues but is improving. Now complaining of abdominal bloating, no flatus. Tolerating FLD, denies N & V. Denies F & C, BM. Is OOBTC, voiding freely. Did not have BM after suppository yesterday. No other complaints. Objective - Vital Signs/Intake and Output Vital Signs (last 24 hours): Temp Pulse Resp BP Pulse Ox 97.6 F 72 20 110/74 94 L 09/11/17 08:14 09/11/17 08:14 09/11/17 08:14 09/11/17 08:14 09/11/17 08:14 Intake and Output: 09/11/17 09/11/17 06:59 18:59 Intake Total 2300 Balance 2300 - Medications Medications: Current Medications Acetaminophen (Tylenol 325mg Tab) 650 mg PO Q6H PRN PRN Reason: Pain, Mild (1-3) Last Admin: 09/04/17 17:06 Dose: 650 mg Acetaminophen (Tylenol 325mg Tab) 650 mg PO Q6H PRN PRN Reason: Fever >100.4 F Last Admin: 09/03/17 12:43 Dose: 650 mg Acetaminophen (Tylenol 650 Mg Supp) 650 mg [place] Q4 PRN PRN Reason: Fever >100.4 F Last Admin: 08/31/17 00:10 Dose: 650 mg Enoxaparin Sodium (Lovenox) 40 mg SC DAILY [facility]A PRN Reason: Protocol Last Admin: 09/11/17 09:17 Dose: 40 mg Piperacillin Sod/Tazobactam (Sod 3.375 gm/ Sodium Chloride) 100 mls @ 100 mls/ hr IVPB Q6 [facility]A PRN Reason: Protocol Last Admin: 09/11/17 09:18 Dose: 100 mls/hr Vancomycin HCl 1 gm/ Sodium (Chloride) 250 mls @ 166.667 mls/hr IVPB Q12@0500, 1700 A[facility]A PRN Reason: Protocol Last Admin: 09/11/17 04:23 Dose: 166.667 mls/hr Lactated Ringer's (Lactated Ringer's) 1,000 mls @ 125 mls/hr IV .Q8H [facility] Last Admin: 09/11/17 04:32 Dose: 125 mls/hr Lactated Ringer's (Lactated Ringer's) 1,000 mls @ 125 mls/hr IV .Q8H [facility] Last Admin: 09/11/17 05:28 Dose: Not Given Metronidazole (Flagyl) 500 mg PO Q8 [facility]A PRN Reason: Protocol Last Admin: 09/11/17 09:17 Dose: 500 mg Ondansetron HCl (Zofran Inj) 4 mg IVP Q6H PRN PRN Reason: Nausea/Vomiting Pantoprazole Sodium (Protonix Ec Tab) 40 mg PO DAILY [facility] Last Admin: 09/11/17 09:17 Dose: 40 mg - Labs Labs: 09/11/17 07:44 09/11/17 07:44 PT 15.1 Seconds (9.8-13.1) H 09/08/17 05:00 INR 1.4 (0.9-1.2) H 09/08/17 05:00 APTT 30.4 Seconds (25.6-37.1) 09/08/17 05:00 - Constitutional Appears: Non-toxic, No Acute Distress - Head Exam Head Exam: ATRAUMATIC, NORMAL INSPECTION, NORMOCEPHALIC - Eye Exam Eye Exam: EOMI, Normal appearance - ENT Exam ENT Exam: Mucous Membranes Moist, Normal Exam - Neck Exam Neck Exam: Full ROM, Normal Inspection - Respiratory Exam Respiratory Exam: NORMAL BREATHING PATTERN - Cardiovascular Exam Cardiovascular Exam: REGULAR RHYTHM, +S1, +S2 - GI/Abdominal Exam GI & Abdominal Exam: Distended (slightly), Soft, Tenderness (diffuse). absent: Firm, Guarding, Rigid, Rebound Additional comments: midline dressing with dark strike through at epigastric area and periumbilical area. Dressing over LOBO insertion site with dried serous strike through- dressing removed - Extremities Exam Extremities Exam: Normal Inspection. absent: Pedal Edema, Tenderness - Neurological Exam Neurological Exam: Alert, Awake, CN II-XII Intact, Oriented x3 - Psychiatric Exam Psychiatric exam: Normal Affect, Normal Mood - Skin Skin Exam: Dry, Intact, Normal Color, Warm Assessment and Plan - Assessment and Plan (Free Text) Assessment: 7F with a ruptured appendicitis POD#3 s/p ex-lap ovarian cyst removal Plan: Cont Abx OOBTC Encourage IS use Cont Lovenox for DVT ppx FLD D/c narcotics Toradol only for pain Monitor for return of bowel function, will advance diet when pt has bowel function FU cx & sensitivities DW attending Dotty, PGY-1
--- NOTE | 2017-09-11 10:54 | CP.PCM.PN ---
Subjective - Date & Time of Evaluation Date of Evaluation: 09/11/17 Time of Evaluation: 10:51 - Subjective Subjective: Pt doing well, pain controlled, no BM or flatus, though she has the sensation she wants to pass gas. no cp sob calftenderness POD3, HD stable, NAD Objective - Vital Signs/Intake and Output Vital Signs (last 24 hours): Temp Pulse Resp BP Pulse Ox 97.6 F 72 20 110/74 94 L 09/11/17 08:14 09/11/17 08:14 09/11/17 08:14 09/11/17 08:14 09/11/17 08:14 Constitutional- cooperative, awake, alert Head- NCAT, PERRL Eye- PERRL, EOMI ENT- normal exam, MMM. Neck- normal inspection, supple, no JVD Respiratory- CTAB, no wheezes rales rhonchi Cardiovascular- RRR, +S1, +S2 no MRG GI/Abdominal- sx site c/d/i, soft, expected tenderness Skin- warm, dry Extremities Exam- normal capillary refill, normal inspection Neurological Exam- alert, awake, oriented Psych- normal mood, normal affect Intake and Output: 09/11/17 09/11/17 06:59 18:59 Intake Total 2300 Balance 2300 - Medications Medications: Current Medications Acetaminophen (Tylenol 325mg Tab) 650 mg PO Q6H PRN PRN Reason: Pain, Mild (1-3) Last Admin: 09/04/17 17:06 Dose: 650 mg Acetaminophen (Tylenol 325mg Tab) 650 mg PO Q6H PRN PRN Reason: Fever >100.4 F Last Admin: 09/03/17 12:43 Dose: 650 mg Acetaminophen (Tylenol 650 Mg Supp) 650 mg [place] Q4 PRN PRN Reason: Fever >100.4 F Last Admin: 08/31/17 00:10 Dose: 650 mg Enoxaparin Sodium (Lovenox) 40 mg SC DAILY [facility] PRN Reason: Protocol Last Admin: 09/11/17 09:17 Dose: 40 mg Piperacillin Sod/Tazobactam (Sod 3.375 gm/ Sodium Chloride) 100 mls @ 100 mls/ hr IVPB Q6 [facility]A PRN Reason: Protocol Last Admin: 09/11/17 09:18 Dose: 100 mls/hr Vancomycin HCl 1 gm/ Sodium (Chloride) 250 mls @ 166.667 mls/hr IVPB Q12@0500, 1700 COUNTS INCLUDE 234 BEDS AT THE [facility] PRN Reason: Protocol Last Admin: 09/11/17 04:23 Dose: 166.667 mls/hr Lactated Ringer's (Lactated Ringer's) 1,000 mls @ 125 mls/hr IV .Q8H COUNTS INCLUDE 234 BEDS AT THE [facility] Last Admin: 09/11/17 04:32 Dose: 125 mls/hr Lactated Ringer's (Lactated Ringer's) 1,000 mls @ 125 mls/hr IV .Q8H [facility]S INCLUDE 234 BEDS AT THE [facility] Last Admin: 09/11/17 05:28 Dose: Not Given Ketorolac Tromethamine (Toradol) 15 mg IVP Q6 PRN PRN Reason: Pain, moderate (4-7) Ketorolac Tromethamine (Toradol) 30 mg IVP Q6 PRN PRN Reason: Pain, severe (8-10) Metronidazole (Flagyl) 500 mg PO Q8 COUNTS INCLUDE 234 BEDS AT THE [facility] PRN Reason: Protocol Last Admin: 09/11/17 09:17 Dose: 500 mg Ondansetron HCl (Zofran Inj) 4 mg IVP Q6H PRN PRN Reason: Nausea/Vomiting Pantoprazole Sodium (Protonix Ec Tab) 40 mg PO DAILY [facility]S INCLUDE 234 BEDS AT [facility] Last Admin: 09/11/17 09:17 Dose: 40 mg - Labs Labs: 09/11/17 07:44 09/11/17 07:44 PT 15.1 Seconds (9.8-13.1) H 09/08/17 05:00 INR 1.4 (0.9-1.2) H 09/08/17 05:00 APTT 30.4 Seconds (25.6-37.1) 09/08/17 05:00 Assessment and Plan - Assessment and Plan (Free Text) Plan: 37 y/o female with no significant PMH presented to ER complaining of 5 day history of right flank pain radiating to her RLQ associated with fever ,watery diarrhea, nausea , vomiting. Patient states that pain is dull like, improved with tylenol, denies any urinary symptoms, dysuria, frequency. She gives history of 17 years ago and complains of abdominal distention for the past 2 years. 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 In ER found to be febrile Tmax 101.3, WBC 13 lactate 2.2 Na 128 K 3[address] abdomen and pelvis showed :Colonic wall thickening on the right with adjacent inflammatory changes and small free fluid. The appendix is not identified. Extensive inflammatory changes which may be related to phlegmonous change/ developing abscess evident within right lower quadrant. Several foci of gas are noted in this region which are not clearly intraluminal. Appearance suspicious for loculated extra luminal gas, however free air cannot be entirely excluded. Correlate clinically for possibility of acute appendicitis/ruptured appendix. 21.3 x 26.4 cm cystic mass within the right mid pelvis of unclear etiology, possibly ovarian in origin. Hepatomegaly. Hepatic steatosis. Patchy right lower lobe atelectasis/infiltrates. Patient admitted in ICU for sepsis secondary to intra abdominal pathology. Surgery and Data Systems Manager consulted . She was started on IV vanco and zosyn for possible intra abdominal infection . She was transfused 2 unit PRBC for anemia . further imaging were performed to better identify the pelvic mass and its origin. Pelvis US showed:Unremarkable uterus and right ovary. Left adnexa is not visualized likely obscured common displaced by the large pelvic mass. Cystic pelvic mass incompletely visualize confirms findings on recent CT scan. This cannot be identified as originating from either the uterus or either adnexa. MRI abd and pelvis showed Re- demonstration of large cystic mass lesion extending from the pelvis to the upper abdomen noted anterior to the uterus. 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 No evidence of thick septation or enhancing solid component in this cystic lesion. The uterus and the urinary bladder are displaced inferiorly. The right ovary is grossly unremarkable. Well defined thin wall cystic lesions/ cystic implant noted at the right mid abdomen adjacent to the inferior border of the liver of uncertain etiology. Differential consideration includes mesenteric implants from malignant neoplasm such as ovarian cancer. Inflammatory changes and heterogeneous enhancement noted in the right mid abdomen adjacent to the cecum of uncertain etiology. Correlate clinically for possible appendicitis or omental caking. Suspicious for mild omental thickening and enhancement at the mid and anterior aspect of the abdomen. The possibility of malignant neoplasm should be excluded. Re- demonstration of large cystic lesion extending from the pelvis. Patient clinically showed improvement after IV antibiotics.Dr. De La Rosa and Dr. Nelson were consulted on the case for possible surgery . Patient taken to OR for exploratory laparatomy and a large ovarian cyst was removed ( Approximately 50 cm in diameter ) with left oophorectomy .Intra operatively noted that patient had a perforated appendicitis with pus and drainage of intra and retroperitonal abscess performed with LOBO drain placement to RLQ. Today post op day 2 , patient doing well, hemodynamically stable, pain is controlled, tolerating liquid diet , ambulating . 1.Sepsis most likely secondary to perforated acute appendicitis seen during exploratory laparatomy Patient was tachycardic , Tmax 101.3 WBC 13 k lactate 2.2 on admission and was admitted to ICU initially s/p drainage of intra and retroperitoneal abscess with LOBO drain placement . Cultures sent ID on consult ,Dr Manuel Garza, Zosyn IV and flagyl Surgery and Data Systems Manager consulted blood cx and urine cx with no growth so far 2. 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 Castro). Pending official pathology report DIRECTOR [employer] pump discontinued and started Morphine IV and percocet PRN for pain promote ambulation Tolerating liquid diet LOBO drain removed Incentive spirometry Lovenox for DVT prophylaxis Promote ambulation . Will advance diet once patient starts having BM Started dulcolax 3. Anemia of chronic disease and iron deficiency Transfused 3 unit PRBc Anemia work up showed very low iron stores . Started Venofer IV Hgb 8.7 today 4. Hyponatremia most likely volume depleted due to diarrhea improved with IVF 5. Diarrhea Stool work up - culture, WBC, O/P, C Diff: negative on empiric PO Flagyl resolved 6. Azotemia- resolved Most likely prerenal given IVF 7. Quantiferon + no resp sxs CXR : negative Pulm consult ID on consult on respiratory isolation ? 8.DVt prophylaxis SCD Lovenox
[2017-09-12] MEDS: Piperacillin/Tazobact 3.375 GM in Sodium Chloride 0.9% 100 ML IVPB SCH ×2 (05:12→09:10)
[2017-09-12] MEDS: Lactated Ringer's 1,000 ML IV SCH ×4 (05:13→13:00)
--- NOTE | 2017-09-12 08:04 | CP.PCM.PN ---
Subjective - Date & Time of Evaluation Date of Evaluation: 09/12/17 Time of Evaluation: 08:02 - Subjective Subjective: General Surgery Progress Note for Dr. Nelson This patient was seen and examined this AM at bedside no acute events overnight. She is ambulating and moving her bowels her only complaint is incision pain with coughing. She denies fevers chills chest pain nausea or vomiting. She is requesting to be discharged home. Objective - Vital Signs/Intake and Output Vital Signs (last 24 hours): Temp Pulse Resp BP Pulse Ox 98.2 F 72 20 110/76 94 L 09/12/17 05:00 09/12/17 05:00 09/12/17 05:00 09/12/17 05:00 09/12/17 05:00 - Medications Medications: Current Medications Acetaminophen (Tylenol 325mg Tab) 650 mg PO Q6H PRN PRN Reason: Pain, Mild (1-3) Last Admin: 09/04/17 17:06 Dose: 650 mg Acetaminophen (Tylenol 325mg Tab) 650 mg PO Q6H PRN PRN Reason: Fever >100.4 F Last Admin: 09/03/17 12:43 Dose: 650 mg Acetaminophen (Tylenol 650 Mg Supp) [address] Q4 PRN PRN Reason: Fever >100.4 F Last Admin: 08/31/17 00:10 Dose: 650 mg Piperacillin Sod/Tazobactam (Sod 3.375 gm/ Sodium Chloride) 100 mls @ 100 mls/ hr IVPB Q6 ALETHA PRN Reason: Protocol Last Admin: 09/12/17 05:12 Dose: 100 mls/hr Vancomycin HCl 1 gm/ Sodium (Chloride) 250 mls @ 166.667 mls/hr IVPB Q12@0500, 1700 ALETHA PRN Reason: Protocol Last Admin: 09/12/17 05:12 Dose: 166.667 mls/hr Lactated Ringer's (Lactated Ringer's) 1,000 mls @ 125 mls/hr IV .Q8H [facility] Last Admin: 09/12/17 05:13 Dose: 125 mls/hr Lactated Ringer's (Lactated Ringer's) 1,000 mls @ 125 mls/hr IV .Q8H [facility] Last Admin: 09/12/17 05:14 Dose: Not Given Ketorolac Tromethamine (Toradol) 15 mg IVP Q6 PRN PRN Reason: Pain, moderate (4-7) Ketorolac Tromethamine (Toradol) 30 mg IVP Q6 PRN PRN Reason: Pain, severe (8-10) Metronidazole (Flagyl) 500 mg PO Q8 ALETHA PRN Reason: Protocol Last Admin: 09/12/17 00:43 Dose: 500 mg Ondansetron HCl (Zofran Inj) 4 mg IVP Q6H PRN PRN Reason: Nausea/Vomiting Pantoprazole Sodium (Protonix Ec Tab) 40 mg PO DAILY [facility] Last Admin: 09/11/17 09:17 Dose: 40 mg - Labs Labs: 09/11/17 07:44 09/11/17 07:44 PT 15.1 Seconds (9.8-13.1) H 09/08/17 05:00 INR 1.4 (0.9-1.2) H 09/08/17 05:00 APTT 30.4 Seconds (25.6-37.1) 09/08/17 05:00 - Constitutional Appears: Non-toxic, No Acute Distress - Head Exam Head Exam: ATRAUMATIC, NORMOCEPHALIC - Eye Exam Eye Exam: EOMI, Normal appearance - ENT Exam ENT Exam: Mucous Membranes Moist - Respiratory Exam Respiratory Exam: NORMAL BREATHING PATTERN - Cardiovascular Exam Cardiovascular Exam: REGULAR RHYTHM, +S1, +S2 - GI/Abdominal Exam GI & Abdominal Exam: Soft. absent: Distended, Firm, Guarding, Rigid, Tenderness Additional comments: Wound well approximated non erythematous nondraining - Neurological Exam Neurological Exam: Alert, Awake - Psychiatric Exam Psychiatric exam: Normal Affect, Normal Mood - Skin Skin Exam: Dry, Intact Assessment and Plan - Assessment and Plan (Free Text) Assessment: 37F with a ruptured appendicitis POD#4 s/p ex-lap ovarian cyst removal Plan: Cont Abx OOBTC Encourage IS use Cont Lovenox for DVT ppx regular diet Toradol only for pain FU cx & sensitivities DW Dr. Leslie Collado PGY2
[2017-09-12] MEDS: Pantoprazole 40 mg EC Tab PO SCH (09:11)
--- NOTE | 2017-09-12 10:35 | CP.PCM.DIS ---
Provider - Provider Date of Admission: 08/30/17 15:56 Attending physician: Jett Foster MD Time Spent in preparation of Discharge (in minutes): 30 Diagnosis - Discharge Diagnosis (1) Ovarian mass Status: Acute (2) Ruptured appendicitis Status: Acute (3) Severe sepsis Status: Acute Hospital Course - Lab Results Lab Results: Micro Results 09/08/17 13:30 Other: Please Indicate Gram Stain - Final 09/08/17 13:30 Other: Please Indicate Wound Culture - Final No growth. 09/06/17 15:30 Stool Ova and Parasite Concentrate Exam - Final 09/02/17 11:25 Blood Blood Culture - Final NO GROWTH AFTER 5 DAYS 09/02/17 11:25 Blood Gram Stain - Final TEST NOT PERFORMED 09/02/17 11:25 Blood Blood Culture - Final NO GROWTH AFTER 5 DAYS 09/02/17 11:25 Blood Gram Stain - Final TEST NOT PERFORMED 09/05/17 17:46 Stool Stool Culture - Final NO SALMONELLA, SHIGELLA OR CAMPYLOBACTER ISOLATED. 09/05/17 17:46 Rectum Ova and Parasite Concentrate Exam - Final 08/30/17 13:00 Blood Blood Culture - Final NO GROWTH AFTER 5 DAYS 08/30/17 13:00 Blood Gram Stain - Final TEST NOT PERFORMED 08/30/17 13:00 Blood Blood Culture - Final NO GROWTH AFTER 5 DAYS 08/30/17 13:00 Blood Gram Stain - Final TEST NOT PERFORMED 08/31/17 06:30 Nose MRSA Culture (Admit) - Final MRSA NOT DETECTED 08/30/17 08:24 Nose MRSA Culture (Admit) - Final MRSA NOT DETECTED 08/30/17 15:20 Urine,Clean Catch Urine Culture - Final No Growth (<1,000 CFU/ML) Most Recent Lab Values WBC 9.7 K/uL (4.8-10.8) 09/11/17 07:44 RBC 3.99 Mil/uL (3.80-5.20) 09/11/17 07:44 Hgb 8.7 g/dL (12.0-16.0) L 09/11/17 07:44 Hct 28.1 % (34.0-47.0) L 09/11/17 07:44 MCV 70.5 fl (81.0-99.0) L 09/11/17 07:44 MCH 21.7 pg (27.0-31.0) L 09/11/17 07:44 MCHC 30.8 g/dL (33.0-37.0) L 09/11/17 07:44 RDW 32.3 % (11.5-14.5) H 09/11/17 07:44 Plt Count 602 K/uL (130-400) H 09/11/17 07:44 MPV 7.0 fl (7.2-11.7) L 09/09/17 05:10 Neut % (Auto) 84.5 % (50.0-75.0) H 09/09/17 05:10 Lymph % (Auto) 9.2 % (20.0-40.0) L 09/09/17 05:10 [place] % (Auto) 5.9 % (0.0-10.0) 09/09/17 05:10 Eos % (Auto) 0.0 % (0.0-4.0) 09/09/17 05:10 Baso % (Auto) 0.4 % (0.0-2.0) 09/09/17 05:10 Neut # 11.6 K/uL (1.8-7.0) H 09/09/17 05:10 Lymph # 1.3 K/uL (1.0-4.3) 09/09/17 05:10 [place] # 0.8 K/uL (0.0-0.8) 09/09/17 05:10 Eos # 0.0 K/uL (0.0-0.7) 09/09/17 05:10 Baso # 0.1 K/uL (0.0-0.2) 09/09/17 05:10 Neutrophils % (Manual) 79 % (42-75) H 09/09/17 05:10 Band Neutrophils % 3 % (0-2) H 09/09/17 05:10 Lymphocytes % (Manual) 10 % (20-50) L 09/09/17 05:10 Monocytes % (Manual) 7 % (0-10) 09/09/17 05:10 Metamyelocytes % 1 % (0-0) H 09/09/17 05:10 Myelocytes % 1 % (0-0) H 09/03/17 05:45 Platelet Estimate Increased (NORMAL) H 09/09/17 05:10 Large Platelets Present 09/09/17 05:10 Hypochromasia (manual) Slight 09/09/17 05:10 Poikilocytosis (manual Moderate 09/09/17 05:10 Anisocytosis (manual) Marked 09/09/17 05:10 Microcytosis (manual) Slight 09/09/17 05:10 Target Cells Slight 08/30/17 13:00 Tear Drop Cells Slight 09/03/17 05:45 Ovalocytes Slight 09/09/17 05:10 Schistocytes Slight 09/09/17 05:10 Retic Count 1.4 % (0.5-1.5) 08/30/17 20:45 PT 15.1 Seconds (9.8-13.1) H 09/08/17 05:00 INR 1.4 (0.9-1.2) H 09/08/17 05:00 APTT 30.4 Seconds (25.6-37.1) 09/08/17 05:00 pO2 18 mm/Hg (30-55) L 08/30/17 18:26 VBG pH 7.35 (7.32-7.43) 08/30/17 18:26 VBG pCO2 48 mmHg (40-60) 08/30/17 18:26 VBG HCO3 23.2 mmol/L 08/30/17 18:26 VBG Total CO2 28.0 mmol/L (22-28) 08/30/17 18:26 VBG O2 Sat (Calc) 27.3 % (40-65) L 08/30/17 18:26 VBG Base Excess 0.3 mmol/L (0.0-2.0) 08/30/17 18:26 VBG Potassium 3.2 mmol/L (3.6-5.2) L 08/30/17 18:26 Sodium 129.0 mmol/L (132-148) L 08/30/17 18:26 Chloride 95.0 mmol/L (98-107) L 08/30/17 18:26 Glucose 131 mg/dL (65-105) H 08/30/17 18:26 Lactate 1.1 mmol/L (0.7-2.1) 08/30/17 18:26 FiO2 21.0 % 08/30/17 18:26 Sodium 135 mmol/l (132-148) 09/11/17 07:44 Potassium 3.9 MMOL/L (3.6-5.0) 09/11/17 07:44 Chloride 100 mmol/L (98-107) 09/11/17 07:44 Carbon Dioxide 27 mmol/L (22-30) 09/11/17 07:44 Anion Gap 12 (10-20) 09/11/17 07:44 BUN 3 mg/dl (7-17) L 09/11/17 07:44 Creatinine 0.5 mg/dl (0.7-1.2) L 09/11/17 07:44 Est GFR ( Amer) > 60 09/11/17 07:44 Est GFR (Non-Af Amer) > 60 09/11/17 07:44 Random Glucose 96 mg/dL (65-105) 09/11/17 07:44 Lactic Acid 1.0 MMOL/L (0.7-2.1) 08/31/17 04:30 Calcium 8.4 mg/dL (8.4-10.2) 09/11/17 07:44 Phosphorus 3.6 mg/dl (2.5-4.5) 08/31/17 04:30 Magnesium 2.0 MG/DL (1.6-2.3) 08/31/17 04:30 Iron < 10 ug/dL (37-170) L 08/30/17 20:45 TIBC 383 ug/dL (250-450) 08/30/17 20:45 % Saturation < 2.6 % (20-55) L 08/30/17 20:45 Transferrin 287.11 mg/dL (206-381) 08/30/17 20:45 Ferritin 24.2 ng/Ml (6.24-137.0) 08/30/17 20:45 Total Bilirubin 0.2 mg/dl (0.2-1.3) 09/10/17 05:30 AST 36 U/L (14-36) D 09/10/17 05:30 ALT 30 U/L (9-52) 09/10/17 05:30 Alkaline Phosphatase 86 U/L (38-126) 09/10/17 05:30 Total Protein 6.1 G/DL (6.3-8.2) L 09/10/17 05:30 Albumin 2.7 g/dL (3.5-5.0) L 09/10/17 05:30 Globulin 3.4 gm/dL (2.2-3.9) 09/10/17 05:30 Albumin/Globulin Ratio 0.8 (1.0-2.1) L 09/10/17 05:30 Lipase 34 U/L (23-300) 08/30/17 13:00 Alpha Fetoprotein 1.0 IU/mL (0.0-7.22) 09/05/17 13:52 Carcinoembryonic Ag 0.6 ng/mL (0-3.0) 09/05/17 13:15 CA 125 Antigen 92.2 U/mL (0-35) H D 09/05/17 13:15 Vitamin B12 451 pg/mL (239-931) 08/30/17 20:45 Folate 13.3 ng/mL 08/30/17 20:45 Procalcitonin 3.06 NG/ML (0.19-0.49) H 09/03/17 09:59 Thyroxine (T4) 10.4 ug/dl (5.5-11.0) 09/04/17 14:55 TSH 3rd Generation 2.42 mIU/ML (0.46-4.68) 09/04/17 14:55 Venous Blood Potassium 3.2 mmol/L (3.6-5.2) L 08/30/17 18:26 Urine Color Susanna (YELLOW) 08/30/17 15:20 Urine Clarity Cloudy (Clear) 08/30/17 15:20 Urine pH 5.0 (5.0-8.0) 08/30/17 15:20 Ur Specific [place] 1.031 (1.003-1.030) H 08/30/17 15:20 Urine Protein 100 mg/dL (NEGATIVE) 08/30/17 15:20 Urine Glucose (UA) Neg mg/dL (Normal) 08/30/17 15:20 Urine Ketones Negative mg/dL (NEGATIVE) 08/30/17 15:20 Urine Blood Large (NEGATIVE) 08/30/17 15:20 Urine Nitrate Negative (NEGATIVE) 08/30/17 15:20 Urine Bilirubin Negative (NEGATIVE) 08/30/17 15:20 Urine Urobilinogen 0.2-1.0 mg/dL (0.2-1.0) 08/30/17 15:20 Ur Leukocyte Esterase Neg Renato/uL (Negative) 08/30/17 15:20 Urine RBC (Auto) 41 /hpf (0-3) H 08/30/17 15:20 Urine Microscopic WBC 20 /hpf (0-5) H 08/30/17 15:20 Ur Squamous Epith Cells 1 /hpf (0-5) 08/30/17 15:20 Urine Bacteria Rare (<OCC) 08/30/17 15:20 Hyaline Casts >20 /hpf (0-2) H 08/30/17 15:20 Granular Casts (Auto) 24 /lpf (0-1) 08/30/17 15:20 Urine HCG, Qual Negative (NEGATIVE) 09/02/17 18:51 Stool Leukocytes, Qual Negative (NEGATIVE) 09/06/17 15:30 Vancomycin Trough 10.7 ug/mL (5.0-10.0) H 09/08/17 05:00 RPR Nonreactive (NONREACTIVE) 09/08/17 14:25 C. difficile Ag & Toxin Negative (NEGATIVE) 09/06/17 15:30 Hepatitis A IgM Ab Negative (NEGATIVE) 09/08/17 14:25 Hep Bs Antigen Negative (NEGATIVE) 09/08/17 14:25 Hep B Core IgM Ab Negative (NEGATIVE) 09/08/17 14:25 Hepatitis C Antibody Negative (NEGATIVE) 09/08/17 14:25 HIV 1&2 Ag/Ab, 4th Gen Nonreactive (Nonreactive) 09/08/17 14:25 HIV 1&2 Antibody Screen Negative (NEGATIVE) 09/08/17 14:25 TB Test (QFT) Nil 0.00 IU/mL 09/05/17 11:30 TB Test Mitogen - Nil 0.03 IU/mL 09/05/17 11:30 TB Test TB - Nil 7.47 IU/mL 09/05/17 11:30 TB Test (QFT) Positive (Negative) H 09/05/17 11:30 Blood Type O POSITIVE 09/08/17 05:00 Antibody Screen Negative 09/08/17 05:00 Crossmatch See Detail 09/08/17 05:00 BBK History Checked Patient has bt 09/08/17 05:00 - Hospital Course Hospital Course: 37 y/o female with no significant PMH presented to ER complaining of 5 day history of right flank pain radiating to her RLQ associated with fever ,watery diarrhea, nausea , vomiting. Patient states that pain is dull like, improved with tylenol, denies any urinary symptoms, dysuria, frequency. She gives history of 17 years ago and complains of abdominal distention for the past 2 years. 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 In ER found to be febrile Tmax 101.3, WBC 13 lactate 2.2 Na 128 K [address] abdomen and pelvis showed :Colonic wall thickening on the right with adjacent inflammatory changes and small free fluid. The appendix is not identified. Extensive inflammatory changes which may be related to phlegmonous change/ developing abscess evident within right lower quadrant. Several foci of gas are noted in this region which are not clearly intraluminal. Appearance suspicious for loculated extra luminal gas, however free air cannot be entirely excluded. Correlate clinically for possibility of acute appendicitis/ruptured appendix. 21.3 x 26.4 cm cystic mass within the right mid pelvis of unclear etiology, possibly ovarian in origin. Hepatomegaly. Hepatic steatosis. Patchy right lower lobe atelectasis/infiltrates. Patient admitted in ICU for sepsis secondary to intra abdominal pathology. Surgery and Nursery Attendant consulted . She was started on IV vanco and zosyn for possible intra abdominal infection . She was transfused 2 unit PRBC for anemia . further imaging were performed to better identify the pelvic mass and its origin. Pelvis US showed:Unremarkable uterus and right ovary. Left adnexa is not visualized likely obscured common displaced by the large pelvic mass. Cystic pelvic mass incompletely visualize confirms findings on recent CT scan. This cannot be identified as originating from either the uterus or either adnexa. MRI abd and pelvis showed Re- demonstration of large cystic mass lesion extending from the pelvis to the upper abdomen noted anterior to the uterus. 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 No evidence of thick septation or enhancing solid component in this cystic lesion. The uterus and the urinary bladder are displaced inferiorly. The right ovary is grossly unremarkable. Well defined thin wall cystic lesions/ cystic implant noted at the right mid abdomen adjacent to the inferior border of the liver of uncertain etiology. Differential consideration includes mesenteric implants from malignant neoplasm such as ovarian cancer. Inflammatory changes and heterogeneous enhancement noted in the right mid abdomen adjacent to the cecum of uncertain etiology. Correlate clinically for possible appendicitis or omental caking. Suspicious for mild omental thickening and enhancement at the mid and anterior aspect of the abdomen. The possibility of malignant neoplasm should be excluded. Re- demonstration of large cystic lesion extending from the pelvis. Patient clinically showed improvement after IV antibiotics.Dr. De La Rosa and Dr. Nelson were consulted on the case for possible surgery . Patient taken to OR for exploratory laparatomy and a large ovarian cyst was removed ( Approximately 50 cm in diameter ) with left oophorectomy .Intra operatively noted that patient had a perforated appendicitis with pus and drainage of intra and retroperitonal abscess performed with LOBO drain placement to RLQ. Today post op day 3, patient BM last night, OK to DC home in stable condition. For follow up with PCP and Surgery in one week. Rec also Nursery Attendant ONC follow up. Patient to be discharged with Augmentin 7 days per ID. 1.Sepsis most likely secondary to perforated acute appendicitis seen during exploratory laparatomy Patient was tachycardic , Tmax 101.3 WBC 13 k lactate 2.2 on admission and was admitted to ICU initially s/p drainage of intra and retroperitoneal abscess with LOBO drain placement . Cultures sent ID on consult ,Dr Manuel Garza, Zosyn IV and flagyl Surgery and Nursery Attendant consulted blood cx and urine cx with no growth so far 2. 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 Castro). Pending official pathology report RN RECRUITMENT pump discontinued and started Morphine IV and percocet PRN for pain promote ambulation Tolerating liquid diet LOBO drain removed Incentive spirometry Lovenox for DVT prophylaxis Promote ambulation . Will advance diet once patient starts having BM Started dulcolax 3. Anemia of chronic disease and iron deficiency Transfused 3 unit PRBc Anemia work up showed very low iron stores . Started Venofer IV Hgb 8.7 today 4. Hyponatremia most likely volume depleted due to diarrhea improved with IVF 5. Diarrhea Stool work up - culture, WBC, O/P, C Diff: negative on empiric PO Flagyl resolved 6. Azotemia- resolved Most likely prerenal given IVF 7. Quantiferon + no resp sxs CXR : negative Pulm consult ID on consult on respiratory isolation ? 8.DVt prophylaxis SCD Lovenox Discharge Exam - Head Exam Head Exam: ATRAUMATIC, NORMOCEPHALIC - Eye Exam Eye Exam: EOMI, Normal appearance, PERRL Pupil Exam: NORMAL ACCOMODATION - ENT Exam ENT Exam: Mucous Membranes Moist, Normal Oropharynx - Respiratory Exam Respiratory Exam: Clear to PA & Lateral, NORMAL BREATHING PATTERN - Cardiovascular Exam Cardiovascular Exam: RRR, +S1, +S2 - GI/Abdominal Exam GI & Abdominal Exam: Normal Bowel Sounds, Soft - Extremities Exam Extremities exam: normal capillary refill, pedal pulses present - Back Exam Back exam: absent: CVA tenderness (L), CVA tenderness (R) - Neurological Exam Neurological exam: Alert, Oriented x3 - Psychiatric Exam Psychiatric exam: Normal Affect, Normal Mood - Skin Skin Exam: Dry, Normal Color Discharge Plan - Discharge Medications Prescriptions: Amoxicillin/Clavulanate [Augmentin 875 MG-125 MG] 1 tab PO BID #14 tab - Follow Up Plan Condition: SERIOUS Disposition: HOME/ ROUTINE Additional Instructions: FOLLOW UP WITH PCP AND SURGERY IN ONE WEEK ALSO FOLLOW UP GROUNDSMAN ONC
[2017-09-12 12:48] VITALS: BP 106/71; PULSE 75; RESP 18; TEMP 98.4; O2SAT 95
--- NOTE | 2017-10-08 09:46 | PCM.OP ---
Operative Report - Operative Report Date of Surgery/Procedure: 09/08/17 Time of Surgery/Procedure: 14:00 Surgeon: Dr. Shashank Nelson Local City Driver: Dr. Robert De La Rosa Anesthesia/Sedation: general/Dr. Suazo Pre-Operative Diagnosis: Giant retroperitoneal pelvic tumor and acute perforated appednicitis Post-Operative Diagnosis: as above Indication for Surgery: as above Operative Findings: Giant pelvic retroperitoneal mass fromn the left ovary encompassing the pelvis, pelvic retroperitoneum and abdominal cavity with perforated appednicitis and intraabdominal abscess Procedure/Operation Description: 1-Extensive excision of pelvic retroperitoneal tumor (>10 cm). 2-Radical left salpingoophorectomy. 3-Drainage of intraabdominal absccess from ruptured appendicitis. Brief History: This is a 37 year old woman who was admitted throough the ED approximately 2 weels previously for severe RUQ abdominal pain and fidnigs of a giant (>30 cm) invovling the whole abdominal cavity, pelvis, retroperitoneum and with acute ruptured appedicitis and intraabdomnial abscess. She is brought to the operaitng room. Description of the Procedure: The patient was brought to the operating room and after induction of endotracheal anesthesia she was prepped and rapped in the usual sterile manner. A generous midline incsion was made into the subcutaneous tisssue from the xyphoid process to the pelvis just above the mons. Using electrocautery the peritoneum was netered and immediately a giant mass was encountered. The mnass was mobilized maually and the intraabdomial portion was initmately adherenbt to the right colon. This was bluntly diswected and immedately a moderate amount of pus was observed. This was aspirated and at this time an acute perforated appendix was noted in which inflamation and infection extended from the appendix to the mid-right colon. The appendix and colon were left in-situ. The dissection continued bluntly and the giant mass was disected from the retroperitneal space which had displaced almost all the intraabdominal contents cephalad. At this point the lesion was noted to come from the left ovary. With blunt and sharp dissection the left round ligament was incised and cuaterized with Ligasure. The mass was removed along with the left ovary and fallopian tube. The abdomial cavity was examined and the area of the intraabdominal abscess was irrigated locally. A 19F Bryan drain was palced through the skin and securd with 2-0 nylon sutures. Hemostasis was deemed adequate and all counts were correct. the midline fascia was clsoed with looped 1PDS. The skin was closed with jayden. A clean dressing was applied. The patient tolerated the procedure, was awakened, extubated and brought to the recovery room in stable condition. Estimated Blood Loss: 50 cc Complications: none Discharge & Condition: stable
== END 2017-09-12 14:59 | disposition home or self-care (01) | DRG 553 ==
LOC: H.ER 11:20 → H.ERHOLD 15:56 → H.ICU/CCU 18:25 → H.TEL 08-31 17:28
PROVIDERS: ADMIT Hospitalist; ATTEND Hospitalist
PROC: 30233N1 Transfusion of Nonautologous Red Blood Cells into Peripheral Vein, Percutaneous Approach (ICD-10-PCS; principal; 2017-08-31)
PROC: 3E0234Z Introduction of Serum, Toxoid and Vaccine into Muscle, Percutaneous Approach (ICD-10-PCS; 2017-08-31)
PROC: 0WBH0ZZ Excision of Retroperitoneum, Open Approach (ICD-10-PCS; 2017-09-08)
PROC: 0W9J0ZX Drainage of Pelvic Cavity, Open Approach, Diagnostic (ICD-10-PCS; 2017-09-08)
PROC: 0W9G0ZX Drainage of Peritoneal Cavity, Open Approach, Diagnostic (ICD-10-PCS; 2017-09-08)
DX: K35.2 Acute appendicitis with generalized peritonitis (principal); A41.9 Sepsis, unspecified organism; R65.20 Severe sepsis without septic shock; K68.19 Other retroperitoneal abscess; E87.1 Hypo-osmolality and hyponatremia; E87.6 Hypokalemia; J98.11 Atelectasis; D27.1 Benign neoplasm of left ovary; R19.09 Other intra-abdominal and pelvic swelling, mass and lump; D50.9 Iron deficiency anemia, unspecified; K76.0 Fatty (change of) liver, not elsewhere classified; E83.39 Other disorders of phosphorus metabolism; D63.8 Anemia in other chronic diseases classified elsewhere; R39.2 Extrarenal uremia; J31.0 Chronic rhinitis; K52.9 Noninfective gastroenteritis and colitis, unspecified; R76.11 Nonspecific reaction to tuberculin skin test without active tuberculosis; Z23 Encounter for immunization

== ENCOUNTER 2017-11-11 08:38 | Inpatient (IN) | payer SELFPAY ==
[2017-11-11 10:01] LABS: BASO % 0.4 % (0.0-2.0); EOS # 0.2 K/uL (0.0-0.7); EOS % 2.6 % (0.0-4.0); HEMOGLOBIN 13.1 g/dL (12.0-16.0); LYMPH # 2.9 K/uL (1.0-4.3); LYMPH % 46.5 % (20.0-40.0); MEAN CELL VOLUME 81.3 fl (81.0-99.0); MEAN CORPUSCULAR HEMOGLOBIN 28.5 pg (27.0-31.0); MEAN CORPUSCULAR HGB CONC 35.1 g/dL (33.0-37.0); MEAN PLATELET VOLUME 7.1 fl (7.2-11.7); MONO # 0.4 K/uL (0.0-0.8); MONO % 6.9 % (0.0-10.0); NEUT # 2.7 K/uL (1.8-7.0); NEUT % 43.6 % (50.0-75.0); NRBC % 0.1 % (0.0-0.0); RBC 4.59 Mil/uL (3.80-5.20); RED CELL DISTRIBUTION WIDTH 22.8 % (11.5-14.5); WHITE BLOOD COUNT 6.1 K/uL (4.8-10.8)
[2017-11-11 10:38] LABS: BLOOD UREA NITROGEN 9 mg/dl (7-17); GFR AFRICAN-AMERICAN > 60; GFR NON-AFRICAN AMERICAN > 60
[2017-11-11] MEDS ORDERED: Propofol 10 mg/ml Inj (20 ML) ONE (14:14)
[2017-11-11] MEDS ORDERED: Rocuronium 10 mg/ml (5 ml) ONE (14:14)
[2017-11-11] MEDS ORDERED: Succinylcholine 200 mg/10 ml Inj IV ONE (14:14)
[2017-11-11] MEDS ORDERED: Lidocaine 4% (Laryng-O-Jet) Kit MM ONE (14:15)
[2017-11-11] MEDS ORDERED: Bupivacaine 0.5% Inj(30mL) ONE (14:15)
[2017-11-11] MEDS ORDERED: Phenylephrine 10 mg/ml Inj ONE (14:20)
--- NOTE | 2017-11-11 14:26 | CP.SDSHP ---
Same Day Surgery H & P - History Proposed Procedure: robotic interval appendectomy Pre-Op Diagnosis: perforated appendicitis - Previous Medical/Surgical History Pain: 0. No Pain Previous Surgical History: ex-lap with resection of ovarian cyst and evacuation of purulent abscess from perforated appendicitis - Allergies Allergies: Allergies No Known Allergies Allergy (Verified 11/11/17 09:04) - Physical Exam Vital Signs: Vital Signs 11/11/17 10:17 Temperature 98 F Pulse Rate 67 Respiratory 18 Rate Blood Pressure 112/70 O2 Sat by Pulse 98 Oximetry Mental Status: Alert & Oriented x3 Neuro: WNL Heart: WNL Lungs: WNL GI: WNL - {Optional Preform as Required} Abdomen: WNL - Impression Impression: stable and clear for procedure Pt. Evaluated Today:Candidate for Anesthesia & Procedure: Yes - Date & Time Date: 11/11/17 Time: 14:26 Short Stay Discharge - Short Stay Discharge Admitting Diagnosis/Reason for Visit: K35.0 Medications: Ibuprofen [Motrin Tab] 800 mg PO Q6 PRN 10 Days tab PRN Reason: Pain, Moderate (4-7) Referrals: Shashank Nelson MD [Medical Doctor] - Davion Ramos MD [Primary Care Provider] - Instructions: Appendectomy, Laparoscopic Surgery, Appendectomy, Laparoscopic Surgery (DC)
[2017-11-11] MEDS ORDERED: Midazolam 2 MG/2 ML VIAL ONE (14:45)
[2017-11-11] MEDS ORDERED: Lactated Ringer's 1,000 ML IV ONE ×3 (14:45→16:45)
[2017-11-11] MEDS ORDERED: ePHEDrine 50 mg/ml Inj ONE (15:01)
[2017-11-11] MEDS ORDERED: Dexamethasone 4 mg/1 ml ONE (16:05)
--- NOTE | 2017-11-11 17:21 | PCM.SURG1 ---
Surgeon's Initial Post Op Note - Surgeon's Notes Surgeon: Dr Nelson Foam Machine Operator: Dr De La Rosa, Dr Hernandez PGY3 Type of Anesthesia: General Endo Pre-Operative Diagnosis: interval appendectomy s/p perforated appendicitis Operative Findings: see report Post-Operative Diagnosis: as above Operation Performed: robotic lysis of adhesions. robotic appendectomy Specimen/Specimens Removed: appendix Estimated Blood Loss: EBL {In ML}: 350 Blood Products Given: N/A Drains Used: No Drains Post-Op Condition: Good Date of Surgery/Procedure: 11/11/17 Time of Surgery/Procedure: 17:21
[2017-11-11] MEDS ORDERED: HYDROmorphone 0.5 mg/0.5 ml ISec ONE (17:33)
[2017-11-12] MEDS: Lactated Ringer's 1,000 ML IV SCH ×2 (03:30→23:30)
[2017-11-12] MEDS ORDERED: Simethicone 80 mg Chewtab PO STA (06:58)
[2017-11-12] MEDS ORDERED: Oxycodone/Acetaminophen 5/325 mg Tab PO PRN (07:00)
--- NOTE | 2017-11-12 07:30 | CP.PCM.PN ---
Subjective - Date & Time of Evaluation Date of Evaluation: 11/12/17 Time of Evaluation: 07:28 - Subjective Subjective: General Surgery: Dr Nelson Pt S&E. POD#1 s/p robotic appendectomy. PT states minimal pain, well controlled. Mild gas pain in upper shoulders. Encouraged pt to ambulate. Denies n/v, f/c, sob or chest pain. Urinating freely. Passing flatus. Objective - Vital Signs/Intake and Output Vital Signs (last 24 hours): Temp Pulse Resp BP Pulse Ox 98.1 F 69 18 100/65 97 11/12/17 06:30 11/12/17 06:30 11/12/17 06:30 11/12/17 06:30 11/12/17 06:30 - Medications Medications: Current Medications Enoxaparin Sodium (Lovenox) 40 mg SC DAILY [facility] PRN Reason: Protocol Hydromorphone HCl (Dilaudid) 0.5 mg IVP Q3H PRN PRN Reason: Pain, Mild (1-3) Last Admin: 11/12/17 01:28 Dose: 0.5 mg Lactated Ringer's (Lactated Ringer's) 1,000 mls @ 100 mls/hr IV .Q10H [facility] Influenza Virus Vaccine (Afluria (Pf)(18yr & Older)) 0.5 ml IM .ONCE ONE Stop: 11/12/17 10:01 Ondansetron HCl (Zofran Inj) 4 mg IVP Q4 PRN PRN Reason: Nausea/Vomiting Oxycodone/Acetaminophen (Percocet 5/325 Mg Tab) 1 tab PO Q4 PRN PRN Reason: Pain, Mild (1-3) Stop: 11/15/17 07:01 Simethicone (Mylicon Chew Tab) 40 mg PO ONCE STA Stop: 11/12/17 06:59 - Labs Labs: 11/11/17 09:50 11/11/17 10:08 - Constitutional Appears: Non-toxic, No Acute Distress - Eye Exam Eye Exam: Normal appearance - ENT Exam ENT Exam: Mucous Membranes Moist - Respiratory Exam Respiratory Exam: absent: Accessory Muscle Use, Respiratory Distress - Cardiovascular Exam Cardiovascular Exam: REGULAR RHYTHM. absent: Tachycardia - GI/Abdominal Exam GI & Abdominal Exam: Soft, Tenderness (post-op and appropriate). absent: Distended, Firm, Guarding, Rigid Additional comments: incisions c/d/i - Neurological Exam Neurological Exam: Alert, Awake, Oriented x3 - Psychiatric Exam Psychiatric exam: Normal Affect, Normal Mood - Skin Skin Exam: Normal Color, Warm Assessment and Plan - Assessment and Plan (Free Text) Assessment: 37F POD#1 s/p robotic appendectomy Plan: adv diet as tolerated clear for d/c this afternoon pending labs and diet tolerance d/w Dr Leslie Hernandez, PGY3
[2017-11-12] MEDS ORDERED: Influenza Vaccine 18yr & older 0.5 ML/45 MCG SYR IM ONE (10:00)
[2017-11-12] MEDS: Oxycodone/Acetaminophen 5/325 mg Tab PO PRN ×2 (15:20→23:35)
[2017-11-12 15:22] LABS: MEAN CELL VOLUME 81.5 fl (81.0-99.0); MEAN CORPUSCULAR HEMOGLOBIN 28.9 pg (27.0-31.0); MEAN CORPUSCULAR HGB CONC 35.5 g/dL (33.0-37.0); RBC 3.68 Mil/uL (3.80-5.20); RED CELL DISTRIBUTION WIDTH 23.3 % (11.5-14.5)
[2017-11-12 15:28] LABS: BLOOD UREA NITROGEN 9 mg/dl (7-17); CALCIUM 8.8 mg/dL (8.4-10.2); GFR AFRICAN-AMERICAN > 60; GFR NON-AFRICAN AMERICAN > 60
[2017-11-12 15:36] LABS: HEMOGLOBIN 10.6 g/dL (12.0-16.0); WHITE BLOOD COUNT 11.1 K/uL (4.8-10.8)
[2017-11-12] MEDS: Enoxaparin 40 mg Syringe SC SCH (15:41)
[2017-11-12 16:24] VITALS: RESP 20; TEMP 97.6; O2SAT 96
[2017-11-12] MEDS ORDERED: Simethicone 80 mg Chewtab PO PRN (19:45)
[2017-11-13 07:16] LABS: BASO % 0.5 % (0.0-2.0); EOS # 0.1 K/uL (0.0-0.7); EOS % 0.8 % (0.0-4.0); HEMOGLOBIN 10.6 g/dL (12.0-16.0); LYMPH # 3.2 K/uL (1.0-4.3); LYMPH % 42.4 % (20.0-40.0); MEAN CORPUSCULAR HEMOGLOBIN 29.3 pg (27.0-31.0); MEAN CORPUSCULAR HGB CONC 35.8 g/dL (33.0-37.0); MEAN PLATELET VOLUME 7.8 fl (7.2-11.7); MONO # 0.4 K/uL (0.0-0.8); NEUT # 3.9 K/uL (1.8-7.0); NEUT % 51.3 % (50.0-75.0); NRBC % 0.1 % (0.0-0.0); RBC 3.63 Mil/uL (3.80-5.20); RED CELL DISTRIBUTION WIDTH 23.2 % (11.5-14.5); WHITE BLOOD COUNT 7.5 K/uL (4.8-10.8)
[2017-11-13 07:51] LABS: ALB/GLOB RATIO 1.2 (1.0-2.1); ALBUMIN 3.5 g/dL (3.5-5.0); ALT/SGPT 44 U/L (9-52); AST/SGOT 24 U/L (14-36); BLOOD UREA NITROGEN 7 mg/dl (7-17); CALCIUM 8.6 mg/dL (8.4-10.2); GFR AFRICAN-AMERICAN > 60; GFR NON-AFRICAN AMERICAN > 60
--- NOTE | 2017-11-13 08:10 | CP.PCM.DIS ---
Provider - Provider Date of Admission: 11/11/17 17:31 Attending physician: Shashank Nelson MD Primary care physician: Davion Ramos MD Time Spent in preparation of Discharge (in minutes): 45 Hospital Course - Lab Results Lab Results: Most Recent Lab Values WBC 7.5 K/uL (4.8-10.8) 11/13/17 05:20 RBC 3.63 Mil/uL (3.80-5.20) L 11/13/17 05:20 Hgb 10.6 g/dL (12.0-16.0) L 11/13/17 05:20 Hct 29.7 % (34.0-47.0) L 11/13/17 05:20 MCV 82.0 fl (81.0-99.0) 11/13/17 05:20 MCH 29.3 pg (27.0-31.0) 11/13/17 05:20 MCHC 35.8 g/dL (33.0-37.0) 11/13/17 05:20 RDW 23.2 % (11.5-14.5) H 11/13/17 05:20 Plt Count 254 K/uL (130-400) 11/13/17 05:20 MPV 7.8 fl (7.2-11.7) 11/13/17 05:20 Neut % (Auto) 51.3 % (50.0-75.0) 11/13/17 05:20 Lymph % (Auto) 42.4 % (20.0-40.0) H 11/13/17 05:20 [place] % (Auto) 5.0 % (0.0-10.0) 11/13/17 05:20 Eos % (Auto) 0.8 % (0.0-4.0) 11/13/17 05:20 Baso % (Auto) 0.5 % (0.0-2.0) 11/13/17 05:20 Neut # (Auto) 3.9 K/uL (1.8-7.0) 11/13/17 05:20 Lymph # (Auto) 3.2 K/uL (1.0-4.3) 11/13/17 05:20 [place] # (Auto) 0.4 K/uL (0.0-0.8) 11/13/17 05:20 Eos # (Auto) 0.1 K/uL (0.0-0.7) 11/13/17 05:20 Baso # (Auto) 0.0 K/uL (0.0-0.2) 11/13/17 05:20 Sodium 141 mmol/l (132-148) 11/13/17 05:20 Potassium 3.6 MMOL/L (3.6-5.0) 11/13/17 05:20 Chloride 100 mmol/L (98-107) 11/13/17 05:20 Carbon Dioxide 27 mmol/L (22-30) 11/13/17 05:20 Anion Gap 18 (10-20) 11/13/17 05:20 BUN 7 mg/dl (7-17) 11/13/17 05:20 Creatinine 0.5 mg/dl (0.7-1.2) L 11/13/17 05:20 Est GFR ( Amer) > 60 11/13/17 05:20 Est GFR (Non-Af Amer) > 60 11/13/17 05:20 Random Glucose 91 mg/dL (65-105) 11/13/17 05:20 Calcium 8.6 mg/dL (8.4-10.2) 11/13/17 05:20 Total Bilirubin 0.5 mg/dl (0.2-1.3) 11/13/17 05:20 AST 24 U/L (14-36) 11/13/17 05:20 ALT 44 U/L (9-52) 11/13/17 05:20 Alkaline Phosphatase 51 U/L (38-126) 11/13/17 05:20 Total Protein 6.4 G/DL (6.3-8.2) 11/13/17 05:20 Albumin 3.5 g/dL (3.5-5.0) 11/13/17 05:20 Globulin 3.0 gm/dL (2.2-3.9) 11/13/17 05:20 Albumin/Globulin Ratio 1.2 (1.0-2.1) 11/13/17 05:20 Blood Type O POSITIVE 11/11/17 09:50 Antibody Screen Negative 11/11/17 09:50 BBK History Checked Patient has bt 11/11/17 09:50 - Hospital Course Hospital Course: 37 year old female w/ history of exploratory laparotomy with resection of ovarian cyst and evacuation of purulent abscess from perforated appendicitis, was admitted through [facility] for interval appendectomy. Patient tolerated the procedure well. Diet was advanced slowly and tolerated. Encouraged ambulation and minimal narcotic pain control. Patient is in stable condition and is cleared for discharge. Discharge Exam - Eye Exam Eye Exam: EOMI. absent: Scleral icterus - ENT Exam ENT Exam: Mucous Membranes Moist - Respiratory Exam Respiratory Exam: NORMAL BREATHING PATTERN. absent: Accessory Muscle Use, Respiratory Distress - Cardiovascular Exam Cardiovascular Exam: +S1, +S2. absent: Bradycardia, Tachycardia - GI/Abdominal Exam GI & Abdominal Exam: Soft, Tenderness. absent: Distended, Firm, Guarding, Hernia, Rebound, Rigid Additional comments: appropriately tender around incision site - Neurological Exam Neurological exam: Alert, Oriented x3 - Skin Skin Exam: Intact, Normal Color, Warm Discharge Plan - Follow Up Plan Condition: GOOD Disposition: HOME/ ROUTINE Referrals: Shashank Nelson MD [Medical Doctor] - Davion Ramos MD [Primary Care Provider] -
[2017-11-13] MEDS: Oxycodone/Acetaminophen 5/325 mg Tab PO PRN (08:17)
[2017-11-13] MEDS: Enoxaparin 40 mg Syringe SC SCH ×2 (08:20→08:24)
[2017-11-13] MEDS: Lactated Ringer's 1,000 ML IV SCH (08:30)
[2017-11-13 09:57] VITALS: BP 106/69; PULSE 77
--- NOTE | 2017-11-13 10:27 | PCM.OP ---
Operative Report - Operative Report Date of Surgery/Procedure: 11/11/17 Time of Surgery/Procedure: 15:00 Surgeon: Dr. Shashank Nelson Kiln Door Builder: Dr. Brenda Cunningham Anesthesia/Sedation: shahida/Dr. Sheehan Pre-Operative Diagnosis: acute/chronic appendicitis for interval appnedectomy Post-Operative Diagnosis: as above Indication for Surgery: as above Operative Findings: singificant adhesions with difficulty identifying the appendix Procedure/Operation Description: 1-robotic appendectomy. 2-extensive lysis of adhesions. Brief History: This is a 37 year old woman known to me after having previous surgery appoximately 6 weeks ago for an admission where she had acute onset abdominal mcintosh associated with a ruptured appendicitis complicated by a giant left ovarian cyst whihc occupied the whole upper abdomen. She now is explored for interval appendectomy. Description of the Procedure: The patient was brought to the operating room and after induction of endotracheal anesthesia she was prepped and drapped in the usual sterile manner. An incison was made into the left upper quadran aay from her midline scar and under visual guidance a trocar was placed into the abdomen and pneumoperitoneum was initiated. Under videoscopic control multiple dense adhseiosn was noted and another trocar was palced in the left lower quadrant under direct visualization. Using blint and sharp dissection with the aid of electrocautery multiple dense adhesion were lysed in order to uncover the cecum. With this in completion another trocar was palced in the right abdominal wall ubnder dierct vison. The robot was docked and using blunt and sharp dissection identification of the remnant appednix was extremely difficult. The tinea of the cecum was followed distally and the ileocecal valve was identified. What seemed to be the remnant appendix was a stub of tissue at the end of the cecal tinea. Omce confident this was the appendix a SHEREEN stpler was introducted and the appendix was transecrted with a portion of cecum. This was marked and sent separately to pathology. Due to the extensive dissection three interrupted 3-0 vicryl sutures were used to close the mesnetery between the cecum and ielocecal valve. Hemostasis was deemed adeqaute. All counts were correct. Pneumoperitoneum was released and all trocars were removed. The port sites were closed with 2-0 vicryl and monocryl for the skin. The patient was awakened, extubated and brought to the recovery room i stable condition. Estimated Blood Loss: 350 cc Blood Replaced: 1100 cc crystalloids Complications: none Specimen: appendix Discharge & Condition: stable
== END 2017-11-13 12:10 | disposition home or self-care (01) | DRG 151 ==
LOC: H.OPSURG 08:38 → H.MEDSURG1 17:31
PROVIDERS: ADMIT Surgery; ATTEND Surgery
PROC: 0DNW0ZZ Release Peritoneum, Open Approach (ICD-10-PCS; 2017-11-11)
PROC: 8E0W0CZ Robotic Assisted Procedure of Trunk Region, Open Approach (ICD-10-PCS; 2017-11-11)
PROC: 0DTJ0ZZ Resection of Appendix, Open Approach (ICD-10-PCS; principal; 2017-11-11 11:45)
DX: K35.2 Acute appendicitis with generalized peritonitis (principal); K66.8 Other specified disorders of peritoneum